=== PATIENT | male | born 1955 | race Caucasian/White ===

== ENCOUNTER 2016-08-23 18:55 | Inpatient (IN) | payer OTHER, MEDICARE ==
[2016-08-23 19:47] VITALS: BP 136/59
[2016-08-23] MEDS ORDERED: D5-0.9%NS 1,000 ML IV SCH (20:00)
[2016-08-23 20:42] LABS: HEMATOCRIT 27.2 % (39.0-49.0); HEMOGLOBIN 9.3 gm/dL (13.2-17.3); MEAN CELL VOLUME 88.1 fl (80-99); MEAN CORPUSCULAR HEMOGLOBIN 30.2 pg (26.0-30.0); MEAN CORPUSCULAR HGB CONC 34.2 pg (28.0-36.0); MEAN PLATELET VOLUME 7.3 fl; PLATELET COUNT 322 Th/cmm (150-400); RED BLOOD COUNT 3.09 Mil/cmm (4.30-5.70); RED CELL DISTRIBUTION WIDTH 13.6 % (11.5-20.0)
[2016-08-23 20:47] LABS: WHITE BLOOD COUNT 29.2 Th/cmm (4.8-10.8)
[2016-08-23 20:55] LABS: BAND NEUTROPHILE 1 % (0-10); NEUTROPHILS 91 % (40-80); PLATELET ESTIMATE ADEQUATE (NORMAL); PLATELET MORPHOLOGY NORMAL (NORMAL); TOTAL CELLS COUNTED 100
[2016-08-23] MEDS ORDERED: INSULIN ASPART SLIDING SCALE 100 UNITS/ML UNIT SUBQ SCH (21:00)
[2016-08-23] MEDS: cefTRIAXone 1 GM in Sodium Chloride 0.9% 50 ML IV SCH (21:04)
[2016-08-23] MEDS: HYDROmorphone 1 mg/mL 1mL Syr IVP PRN (21:11)
[2016-08-24] MEDS: INSULIN ASPART SLIDING SCALE 100 UNITS/ML UNIT SUBQ SCH ×4 (06:45→22:24)
[2016-08-24] MEDS: HYDROmorphone 1 mg/mL 1mL Syr IVP PRN ×3 (06:46→20:56)
[2016-08-24 07:49] LABS: ALB/GLOB RATIO 0.8 (1.0-1.8); ANION GAP 14.5 (7.0-16.0); BILIRUBIN,TOTAL 0.4 mg/dL (0.3-1.0); BUN/CREATININE RATIO 5.7; CALCIUM SERUM 8.5 mg/dL (8.6-10.3); CARBON DIOXIDE 28.5 mEq/L (21.0-31.0); PHOSPHOROUS 5.4 mg/dL (2.5-5.0); URIC ACID 8.5 mg/dL (4.4-7.6)
[2016-08-24 07:58] LABS: HEMATOCRIT 25.9 % (39.0-49.0); HEMOGLOBIN 9.1 gm/dL (13.2-17.3); MEAN CELL VOLUME 88.3 fl (80-99); MEAN CORPUSCULAR HEMOGLOBIN 30.8 pg (26.0-30.0); MEAN CORPUSCULAR HGB CONC 34.9 pg (28.0-36.0); MEAN PLATELET VOLUME 6.9 fl; PLATELET COUNT 348 Th/cmm (150-400); RED BLOOD COUNT 2.94 Mil/cmm (4.30-5.70); RED CELL DISTRIBUTION WIDTH 13.6 % (11.5-20.0)
[2016-08-24 08:08] LABS: CREATININE - SERUM 7.5 mg/dL (0.7-1.3)
--- NOTE | 2016-08-24 08:11 | General Progress Note ---
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 ESRD on HD Plan: doppler venous and arterial study MRI of right foot will need excisional debridement of foot with possible wound vac Objective - Results Result Diagrams: 08/23/16 20:29 Recent Labs: Laboratory Last Values WBC 29.2 Th/cmm (4.8-10.8) H* 08/23/16 20: RBC 3.09 Mil/cmm (4.30-5.70) L 08/23/16 20:29 Hgb 9.3 gm/dL (13.2-17.3) L 08/23/16 20: Hct 27.2 % (39.0-49.0) L 08/23/16 20:29 MCV 88.1 fl (80-99) 08/23/16 20: MCH 30.2 pg (26.0-30.0) H 08/23/16 20:29 MCHC Differential 34.2 pg (28.0-36.0) 08/23/16 20:29 RDW 13.6 % (11.5-20.0) 08/23/16 20:29 Plt Count 322 Th/cmm (150-400) 08/23/16 20:29 MPV 7.3 fl 08/23/16 20:29 Band Neutrophils % 1 % (0-10) 08/23/16 20:29 Neutrophils (Manual) 91 % (40-80) H 08/23/16 20:29 Lymphocytes 3 % (20-50) L 08/23/16 20:29 Monocytes 5 % (2-10) 08/23/16 20:29 Platelet Estimate ADEQUATE (NORMAL) 08/23/16 20:29 Platelet Morphology NORMAL (NORMAL) 08/23/16 20:29 RBC Morph Micro Appear NORMAL (NORMAL) 08/23/16 20:29 POC Glucose 87 MG/DL (70 - 105) 08/24/16 06:42 Hemoglobin A1c % 7.8 % (4.0-6.0) H 08/23/16 20:29 - Physical Exam Vitals and I&O: Vital Signs Temp 98.8 F 08/24/16 04:00 Pulse 86 08/24/16 04:00 Resp 19 08/24/16 04:00 BP 129/64 08/24/16 04:00 Pulse Ox 98 08/24/16 04:00 Intake & Output 08/23/16 08/24/16 08/24/16 18:59 06:59 18:59 Intake Total 500 Balance 500 Weight (lbs) 81.647 kg Intake: Oral 500 Active Medications: Current Medications Acetaminophen (Tylenol) 650 mg PO Q4H PRN PRN Reason: fever Stop: 10/22/16 19:59 Last Admin: 08/23/16 21:05 Dose: 650 mg Hydromorphone HCl (Dilaudid) 1 mg IVP Q6HR PRN PRN Reason: Pain (Moderate) Stop: 10/22/16 19:59 Last Admin: 08/24/16 06:46 Dose: 1 mg Dextrose/Sodium Chloride (D5-0.9%Ns) 1,000 mls @ 75 mls/hr IV .[id number] [facility] Stop: 10/22/16 19:59 Last Admin: 08/23/16 21:06 Dose: 75 mls/hr Ceftriaxone Sodium 1 gm/ (Sodium Chloride) 50 mls @ 100 mls/hr IV Q24HR DEB Stop: 10/22/16 20:59 Last Admin: 08/23/16 21:04 Dose: 100 mls/hr Insulin Aspart (Novolog Insulin Sliding Scale) 0 units SUBQ ACHS DEB PRN Reason: Protocol Stop: 10/23/16 07:29 Last Admin: 08/24/16 06:45 Dose: Not Given
[2016-08-24 08:29] LABS: WHITE BLOOD COUNT 17.5 Th/cmm (4.8-10.8)
[2016-08-24 08:43] LABS: TOTAL CELLS COUNTED 100
[2016-08-24 08:44] LABS: BAND NEUTROPHILE 2 % (0-10); NEUTROPHILS 78 % (40-80); PLATELET ESTIMATE ADEQUATE (NORMAL)
--- NOTE | 2016-08-24 09:08 | General Progress Note ---
Subjective - Review of Systems Service Date: 08/24/16 Subjective: I have foot ulcer Objective - Results Result Diagrams: 08/24/16 06:12 08/24/16 06:12 Recent Labs: Laboratory Last Values WBC 17.5 Th/cmm (4.8-10.8) H D 08/24/16 06:12 RBC 2.94 Mil/cmm (4.30-5.70) L 08/24/16 06:12 Hgb 9.1 gm/dL (13.2-17.3) L 08/24/16 06:12 Hct 25.9 % (39.0-49.0) L 08/24/16 06:12 MCV 88.3 fl (80-99) 08/24/16 06:12 MCH 30.8 pg (26.0-30.0) H 08/24/16 06:12 MCHC Differential 34.9 pg (28.0-36.0) 08/24/16 06:12 RDW 13.6 % (11.5-20.0) 08/24/16 06:12 Plt Count 348 Th/cmm (150-400) 08/24/16 06:12 MPV 6.9 fl 08/24/16 06:12 Band Neutrophils % 2 % (0-10) 08/24/16 06:12 Neutrophils (Manual) 78 % (40-80) 08/24/16 06:12 Lymphocytes 10 % (20-50) L 08/24/16 06:12 Monocytes 10 % (2-10) 08/24/16 06:12 Platelet Estimate ADEQUATE (NORMAL) 08/24/16 06:12 Platelet Morphology NORMAL (NORMAL) 08/23/16 20:29 RBC Morph Micro Appear NORMAL (NORMAL) 08/23/16 20:29 Sodium 131 mEq/L (136-145) L 08/24/16 06:12 Potassium 4.0 mEq/L (3.5-5.1) 08/24/16 06:12 Chloride 92 mEq/L (98-107) L 08/24/16 06:12 Carbon Dioxide 28.5 mEq/L (21.0-31.0) 08/24/16 06:12 Anion Gap 14.5 (7.0-16.0) 08/24/16 06:12 BUN 43 mg/dL (7-25) H 08/24/16 06:12 Creatinine 7.5 mg/dL (0.7-1.3) H* 08/24/16 06:12 Est GFR ( Amer) 9.6 ml/min (>90) 08/24/16 06:12 Est GFR (Non-Af Amer) 7.9 ml/min 08/24/16 06:12 BUN/Creatinine Ratio 5.7 08/24/16 06:12 Glucose 83 mg/dL (70-105) 08/24/16 06:12 POC Glucose 87 MG/DL (70 - 105) 08/24/16 06:42 Hemoglobin A1c % 7.8 % (4.0-6.0) H 08/23/16 20:29 Uric Acid 8.5 mg/dL (4.4-7.6) H 08/24/16 06:12 Calcium 8.5 mg/dL (8.6-10.3) L 08/24/16 06:12 Phosphorus 5.4 mg/dL (2.5-5.0) H 08/24/16 06:12 Magnesium 2.0 mg/dL (1.9-2.7) 08/24/16 06:12 Total Bilirubin 0.4 mg/dL (0.3-1.0) 08/24/16 06:12 AST 22 U/L (13-39) 08/24/16 06:12 ALT 27 U/L (7-52) 08/24/16 06:12 Alkaline Phosphatase 372 U/L (34-104) H 08/24/16 06:12 Total Protein 6.2 gm/dL (6.0-8.3) 08/24/16 06:12 Albumin 2.7 gm/dL (4.2-5.5) L 08/24/16 06:12 Globulin 3.5 gm/dL 08/24/16 06:12 Albumin/Globulin Ratio 0.8 (1.0-1.8) L 08/24/16 06:12 Triglycerides 90 mg/dL (<150) 08/24/16 06:12 Cholesterol 73 mg/dL (<200) 08/24/16 06:12 LDL Cholesterol Direct 25 mg/dL (75-193) L 08/24/16 06:12 HDL Cholesterol 28 mg/dL (23-92) 08/24/16 06:12 TSH 0.93 uIU/ml (0.34-5.60) 08/24/16 06:12 - Physical Exam Vitals and I&O: Vital Signs Temp 98.8 F 08/24/16 04:00 Pulse 86 08/24/16 04:00 Resp 19 08/24/16 04:00 BP 129/64 08/24/16 04:00 Pulse Ox 98 08/24/16 04:00 Intake & Output 08/23/16 08/24/16 08/24/16 18:59 06:59 18:59 Intake Total 500 Balance 500 Weight (lbs) 81.647 kg Intake: Oral 500 Active Medications: Current Medications Acetaminophen (Tylenol) 650 mg PO Q4H PRN PRN Reason: fever Stop: 10/22/16 19:59 Last Admin: 08/23/16 21:05 Dose: 650 mg Hydromorphone HCl (Dilaudid) 1 mg IVP Q6HR PRN PRN Reason: Pain (Moderate) Stop: 10/22/16 19:59 Last Admin: 08/24/16 06:46 Dose: 1 mg Dextrose/Sodium Chloride (D5-0.9%Ns) 1,000 mls @ 75 mls/hr IV .[id number] [facility] Stop: 10/22/16 19:59 Last Admin: 08/23/16 21:06 Dose: 75 mls/hr Ceftriaxone Sodium 1 gm/ (Sodium Chloride) 50 mls @ 100 mls/hr IV Q24HR [facility] Stop: 10/22/16 20:59 Last Admin: 08/23/16 21:04 Dose: 100 mls/hr Insulin Aspart (Novolog Insulin Sliding Scale) 0 units SUBQ ACHS DEB PRN Reason: Protocol Stop: 10/23/16 07:29 Last Admin: 08/24/16 06:45 Dose: Not Given Miscellaneous (Clinical Monitoring) 1 ea MC DAILY PRN PRN Reason: RENAL Stop: 10/23/16 08:19 General: Alert, Oriented x3, Cooperative, No acute distress HEENT: Atraumatic Neck: Supple Cardiovascular: Regular rate Lungs: Clear to auscultation Abdomen: Bowel sounds, Soft Extremities: Other (There is a 10 cm diabetic ulcer around big toe, there is a 2 cm diabetic ulcer stage I around left toe. ) Neurological: Normal gait Skin: Other (Dry) Psych/Mental Status: Mental status NL Assessment/Plan - Assessment Assessment: Patient is awake, alert, calm, in no acute distress. Dx: Sepsis to Diabetic ulcer, DM, HTN, ESRD on HD. - Plan Plan: Patient in Rocephin, IV NS, already seen by surgery. Will continue to monitor.
--- NOTE | 2016-08-24 10:04 | History & Physical ---
ADMIT DATE: 08/24/2016 CHIEF COMPLAINT: Acute loss of consciousness. HISTORY OF PRESENT ILLNESS: This is a case of a 60-year-old male who was brought to Emergency Room, [facility] secondary to acute loss of consciousness. When the patient got to ER, the patient was making eye contact, but he was not responding. The patient was found in the morning confused, the reason why he was sent to Emergency Room. PAST MEDICAL HISTORY: The patient has past medical history of diabetes mellitus, hypertension, and endstage renal disease, on hemodialysis. FAMILY HISTORY: The patient has bilateral foot ulcers. SOCIAL HISTORY: The patient lives with his sister and family members. ALLERGIES: No known allergies. PAST SURGICAL HISTORY: The patient referred that he had surgery on boot feet to cut some bone and debride the ulcers. MEDICATIONS: The patient does not know what medication he is taking. REVIEW OF SYSTEMS: LUNGS: The patient denies shortness of breath. HEART: The patient denies chest pain. ABDOMEN: Unremarkable. EXTREMITIES: The patient referred foot pain in both extremities. PHYSICAL EXAMINATION: GENERAL: A fairly nourished and developed male, awake, alert, and in no acute distress. HEENT: Head is normocephalic and atraumatic. Eyes: Pupils are reactive to light. Nose: No evidence of nasal obstruction. Ears: No evidence of any discharge. Mouth: Fairly kept. VITAL SIGNS: Bilateral air entry. No wheezing, no crackles. HEART: Regular rate and rhythm. ABDOMEN: Soft and nontender. Bowel sounds present. EXTREMITIES: There is a diabetic ulcer of around 10 cm in the internal area of right foot. There is 2 cm diabetic ulcer, stage I, on left foot. NEUROLOGICAL: The patient is awake, alert, in no acute distress. Nerves 2-12 grossly intact. IMPRESSION: 1. Sepsis secondary to foot ulcer. 2. Diabetes mellitus. 3. Hypertension. 4. Endstage renal disease, on hemodialysis. PLAN: 1. The patient will be admitted in the medical/surgical floor. 2. Ceftriaxone. 3. Consult with Dr. Harrington. 4. Consult with Dr. Baker. 5. Consult with Dr. Zendejas, synchronizer. 6. Insulin sliding scale. 7. Diabetic diet. 8. CBC and CMP in a.m. JOB# [id number]
[2016-08-24] MEDS ORDERED: Vancomycin HCl 1.5 GM in Sodium Chloride 0.9% 500 ML IV ONE (15:00)
[2016-08-24] MEDS: Epoetin Alfa 20000 Units/mL Vial SUBQ SCH (16:24)
[2016-08-24] MEDS: cefTRIAXone 1 GM in Sodium Chloride 0.9% 50 ML IV SCH (20:48)
--- NOTE | 2016-08-24 21:43 | Admit Criteria Form ---
Admit Criteria Forms - Admit Criteria Diagnosis: SEPSIS and OTHER FEBRILE ILLNESS, W/O FOCAL INFECTION Clinical Indications for Admission to Inpatient Care ( Place 'X' for any and all applicable criteria): Admission is indicated for ANY ONE of the following (1)(2)(3)(4): [ ] I. Bacteremia [ ]II. Suspected or identified specific infection requiring hospitalization (eg, meningitis, endocarditis) [ ]III. Hemodynamic instability [ ]IV. Altered mental status [X]V. Failure or unavailability of outpatient antimicrobial treatment [ ]. Hypoxemia [ ]VII. Seizures [ ]VIII. High-risk febrile neutropenia [ ]IX. Need for parenteral antibiotic in patient who is likely to abuse vascular access device (eg, injection drug user) [A](7) [ ]X. Temperature greater than 104.9 degrees F (40.5 degrees C) (oral) [ ]XI. Inpatient admission required rather than observation care because of ANY ONE of the following: [ ]1) Specific infection identified that is too severe for outpatient treatment or observation care trial [ ]2) Metabolic disorder (eg, hypoglycemia, hyperglycemia, metabolic acidosis) that is severe or persistent [ ]3) Temperature greater than 103.1 degrees F (39.5 degrees C) ( oral) that is not responsive to observation care treatment [ ]4) IV fluid to replace significant ongoing (eg, for over 24 hours) losses (> 3 L/m2 per day) [ ]5) Supplemental oxygen or respiratory treatments for over 24 hours that is performable only in acute inpatient setting [ ]6) Parenteral nutrition regimen need that must be implemented on inpatient basis [ ]7) Strict or protective (eg, laminar flow) isolation [ ]8) Other condition, treatment or monitoring requiring inpatient admission Extended stay beyond goal length of stay may be needed for(1)(3) [ ]a) Sepsis or septic shock(22) [ ]b) Positive blood cultures [ ]c) Insufficient oral intake [ ]d) High-risk febrile neutropenia(29)(30) [ ]e) Continued fever and clinical instability [ ]f) Clinically active comorbid illness (e.g,heart failure, renal failure , diabetes) The original [employer] [facility] content created by Brad Burton has been revised. The portions of the content which have been revised are identified through the use of italic text or in bold, and [employer] has neither reviewed nor approved the modified material. All other unmodified content is copyright [facility]. Please see references footnoted in the original [facility] edition 2016 Admit Criteria Met?: Yes
--- NOTE | 2016-08-25 05:54 | Consultation ---
DATE OF CONSULTATION: 08/24/2016 ATTENDING DOCTOR: Dr. Emerson Victoria. SUPERINTENDENT BOARD MILL: Dr. Ernesto Odom. REASON FOR CONSULTATION: Electrolyte imbalance and fluid management. HISTORY OF PRESENT ILLNESS: This is a 60-year-old male with past medical history of end-stage renal disease, on hemodialysis, who was transported to [place] [facility] because of altered level of consciousness and eventually transferred to [facility] for further care. Few hours prior to admission, the patient noted the patient to be awake, but poorly responsive. This was associated with confusion as well as disorientation. Paramedics were notified and he was brought to [place] [facility]. His blood sugar at [place] [facility] was 23. He was given D50 and his mental status improved. CT scan of the brain revealed old lacunar infarct involving bilateral basal ganglia, left thalamus and bilateral jelani. His white count was 29.8, but temperature was 98 degrees. Chest x-ray revealed no acute disease. Exam at [place] revealed right foot necrotic ulcer. As per the patient, he had recent surgical debridement of his right foot, but had been healing slowly. He had no fever, no chills, but does have occasional pain on his foot. The patient has a history of end-stage renal disease, on dialysis for the last 5 years. He was being dialyzed at _[place] and eventually moved to [place]. PAST MEDICAL HISTORY: 1. End-stage renal disease, on hemodialysis. 2. Type 2 diabetes mellitus. 3. Essential hypertension. 4. Bilateral foot ulcers. 5. Anemia of chronic kidney disease. PAST SURGICAL HISTORY: 1. Status post creation of left wrist AV fistula. 2. Status post debridement of right foot ulcer. CURRENT MEDICATIONS: He is currently on acetaminophen, hydromorphone, insulin aspart, ceftriaxone. ALLERGIES: No known drug allergies. SOCIAL HISTORY: Had a history of smoking previously, but quit many years ago. Denied any alcohol consumption. He used to do [employer]. FAMILY HISTORY: Significant for diabetes and hypertension in his siblings. REVIEW OF SYSTEMS: CONSTITUTIONAL: He does have occasional weakness. No fever, no chills. Appetite had been fair. HEENT: Has blurring of vision due to diabetes, hearing acuity remains within acceptable limits. No headaches, no dizziness. CARDIORESPIRATORY: He has a history of hypertension. At this point, no shortness of breath, chest pain, palpitations, diaphoresis, or cough. GASTROINTESTINAL: No nausea and vomiting, abdominal pain or cramping, hematemesis, melena, hematochezia, no diarrhea. ENDOCRINE: Has a history of diabetes, no thyroid abnormalities. MUSCULOSKELETAL: Multiple joint arthralgias. GENITOURINARY: History of kidney failure, on hemodialysis for the last 5 years. Rarely urinates, but if he does, denied any dysuria nor hematuria. HEMATOLOGIC: History of anemia of chronic kidney disease. NEUROPSYCH: He has diabetic neuropathy. No syncopal episode, but did have some encephalopathy due to his hypoglycemia. No syncopal episode. PHYSICAL EXAMINATION: GENERAL: The patient is awake, comfortable, minimal pain, right foot, more coherent. VITAL SIGNS: Blood pressure is 134/64, pulse 90, temperature 99.5 degrees. SKIN: Good turgor, warm, no rash, no jaundice appreciated. HEENT: Head normocephalic, atraumatic. Eyes: Extraocular muscles intact. Pupils equal, round, reactive to light and accommodates. Anicteric sclerae. Pale conjunctivae. Nose, midline nasal septum. Mouth: Dry mucosa with adequate dentition. NECK: Supple, no adenopathy, no thyromegaly, no bruits. Trachea palpated in the midline. CHEST AND CVS: S1, S2. No rub, murmur, no gallop appreciated. Point of maximal impulse, fifth intercostal space, left midclavicular line. No abdominal or femoral bruit is appreciated. LUNGS: Equal expansion. No use of accessory muscles. No supraclavicular retractions. Decreased breath sounds, but clear to auscultation without any wheeze. ABDOMEN: Mildly globular, soft. Positive for bowel sounds. No bruits either diastolic or systolic. RECTAL: The patient refused. GENITOURINARY: Normal-appearing male genitalia. MUSCULOSKELETAL: No effusions present in his joints with adequate range of motion. EXTREMITIES: No evidence of edema, cyanosis nor clubbing with palpable femoral, but unable to fully appreciate popliteal and dorsalis pedis pulses. He has a, I would say, 3 x 5 necrotic ulcer involving the right lateral sole of first digit. He also has remnant scar on the sole of his left first digit. NEUROLOGIC: The patient is alert now, verbal, motor is 5/5. Cranial nerves ____-12 intact. Sensory intact. LABORATORY DATA: Did reveal sodium of 131, potassium 4, chloride 92, bicarbonate 28, BUN 43, creatinine 7.5, glucose 87, calcium 8.5, uric acid 8.5, phosphorous is 5.4, albumin 2.7. White count is now 17.5, hemoglobin 9.1, hematocrit 25.9, platelets 348, polys 78%. IMPRESSION: 1. End-stage renal disease, on hemodialysis. 2. Metabolic encephalopathy secondary to hypoglycemia. 3. Sepsis secondary to infected right necrotic diabetic foot ulcer. 4. Type 2 diabetes mellitus. 5. Essential hypertension. 6. Anemia of chronic kidney disease. 7. Bilateral peripheral arterial disease. 8. Severe malnutrition. PLAN: 1. Continue on with hemodialysis as scheduled. 2. Follow up bustamante culture. 3. Continue Rocephin and add vancomycin. 4. Agree with surgical consult. 5. Start the patient on PhosLo due to secondary hyperparathyroidism. 6. Also, start the patient on Epogen because of anemia. Thank you, Dr. Victoria, for this consult and we will follow the patient closely with you. JOB# [id number]
[2016-08-25] MEDS: INSULIN ASPART SLIDING SCALE 100 UNITS/ML UNIT SUBQ SCH ×3 (06:30→21:45)
[2016-08-25 07:20] LABS: HEMOGLOBIN 8.6 gm/dL (13.2-17.3); MEAN CELL VOLUME 89.1 fl (80-99); MEAN CORPUSCULAR HEMOGLOBIN 30.5 pg (26.0-30.0); MEAN CORPUSCULAR HGB CONC 34.3 pg (28.0-36.0); MEAN PLATELET VOLUME 6.7 fl; PLATELET COUNT 311 Th/cmm (150-400); RED BLOOD COUNT 2.81 Mil/cmm (4.30-5.70); RED CELL DISTRIBUTION WIDTH 14.4 % (11.5-20.0)
[2016-08-25 07:59] LABS: ALB/GLOB RATIO 0.8 (1.0-1.8); ANION GAP 14.3 (7.0-16.0); BILIRUBIN,TOTAL 0.4 mg/dL (0.3-1.0); BUN/CREATININE RATIO 4.6; CALCIUM SERUM 8.6 mg/dL (8.6-10.3); CARBON DIOXIDE 28.9 mEq/L (21.0-31.0); POTASSIUM SERUM 4.2 mEq/L (3.5-5.1)
[2016-08-25 08:24] LABS: WHITE BLOOD COUNT 16.7 Th/cmm (4.8-10.8)
[2016-08-25 08:29] LABS: CREATININE - SERUM 4.6 mg/dL (0.7-1.3)
[2016-08-25] MEDS: HYDROmorphone 1 mg/mL 1mL Syr IVP PRN ×3 (09:09→18:56)
[2016-08-25 09:49] LABS: BASOPHIL 1 % (0-3); EOSINOPHIL 2 % (0-5); NEUTROPHILS 87 % (40-80); PLATELET ESTIMATE ADEQUATE (NORMAL); PLATELET MORPHOLOGY GIANT PLATELETS SEEN (NORMAL); POLYCHROMASIA 1+; TOTAL CELLS COUNTED 100
--- NOTE | 2016-08-25 10:19 | Diagnostic Imaging Report ---
Bilateral lower extremity DVT study HISTORY: Pain, rule out DVT COMPARISON: None Technique: Longitudinal and transverse sonographic images of the bilateral lower extremity veins were obtained with doppler analysis. FINDINGS: There is normal compressibility, augmentation and phasicity of the bilateral common femoral, superficial femoral, popliteal, and posterior tibial veins. No thrombus is visualized. IMPRESSION: No evidence of thrombus within the bilateral lower extremity veins.
--- NOTE | 2016-08-25 10:38 | Diagnostic Imaging Report ---
Bilateral lower extremity arterial Doppler study HISTORY: Pain COMPARISON: None Technique: Longitudinal and transverse sonographic images of the bilateral lower extremity arteries were obtained with doppler analysis. FINDINGS: Exam is limited due to patient's medical condition. Exam of the right side demonstrates generalized moderate to severe atherosclerotic vascular disease. There is biphasic waveform in the anterior tibialis artery. There is monophasic waveform of the dorsalis pedis artery with marked decreased velocity at 11 cm/second Right ankle brachial index: 1 Exam of the left side demonstrates moderate to severe atherosclerotic vascular disease with biphasic flow within left anterior and tibialis posterior arteries. There is monophasic flow in the left dorsalis pedis artery with decreased velocity of 21.3 cm/second. Left ankle brachial index: 0.8 IMPRESSION: Moderate to severe generalized atherosclerotic vascular disease, greatest distally. No sonographic evidence of occlusion. If clinically indicated a follow-up CT angiography of the lower extremities may also be obtained for further assessment. Right ankle brachial index: 1 Left ankle brachial index: 0.8
--- NOTE | 2016-08-25 12:25 | General Progress Note ---
Subjective - Review of Systems Service Date: 08/25/16 Subjective: I have foot ulcer. Objective - Results Result Diagrams: 08/25/16 06:40 08/25/16 06:40 Recent Labs: Laboratory Last Values WBC 16.7 Th/cmm (4.8-10.8) H 08/25/16 06:40 RBC 2.81 Mil/cmm (4.30-5.70) L 08/25/16 06:40 Hgb 8.6 gm/dL (13.2-17.3) L 08/25/16 06:40 Hct 25.0 % (39.0-49.0) L 08/25/16 06:40 MCV 89.1 fl (80-99) 08/25/16 06:40 MCH 30.5 pg (26.0-30.0) H 08/25/16 06:40 MCHC Differential 34.3 pg (28.0-36.0) 08/25/16 06:40 RDW 14.4 % (11.5-20.0) 08/25/16 06:40 Plt Count 311 Th/cmm (150-400) 08/25/16 06:40 MPV 6.7 fl 08/25/16 06:40 Band Neutrophils % 2 % (0-10) 08/24/16 06:12 Neutrophils (Manual) 87 % (40-80) H 08/25/16 06:40 Lymphocytes 9 % (20-50) L 08/25/16 06:40 Monocytes 1 % (2-10) L 08/25/16 06:40 Eosinophils 2 % (0-5) 08/25/16 06:40 Basophils 1 % (0-3) 08/25/16 06:40 Platelet Estimate ADEQUATE (NORMAL) 08/25/16 06:40 Platelet Morphology GIANT PLATELETS SEEN (NORMAL) 08/25/16 06:40 Polychromasia 1+ 08/25/16 06:40 RBC Morph Micro Appear ABNORMAL (NORMAL) 08/25/16 06:40 Sodium 137 mEq/L (136-145) 08/25/16 06:40 Potassium 4.2 mEq/L (3.5-5.1) 08/25/16 06:40 Chloride 98 mEq/L (98-107) 08/25/16 06:40 Carbon Dioxide 28.9 mEq/L (21.0-31.0) 08/25/16 06:40 Anion Gap 14.3 (7.0-16.0) 08/25/16 06:40 BUN 21 mg/dL (7-25) 08/25/16 06:40 Creatinine 4.6 mg/dL (0.7-1.3) H* 08/25/16 06:40 Est GFR ( Amer) 16.8 ml/min (>90) 08/25/16 06:40 Est GFR (Non-Af Amer) 13.9 ml/min 08/25/16 06:40 BUN/Creatinine Ratio 4.6 08/25/16 06:40 Glucose 163 mg/dL (70-105) H 08/25/16 06:40 POC Glucose 224 MG/DL (70 - 105) H 08/25/16 11:16 Hemoglobin A1c % 7.8 % (4.0-6.0) H 08/23/16 20:29 Uric Acid 8.5 mg/dL (4.4-7.6) H 08/24/16 06:12 Calcium 8.6 mg/dL (8.6-10.3) 08/25/16 06:40 Phosphorus 5.4 mg/dL (2.5-5.0) H 08/24/16 06:12 Magnesium 2.0 mg/dL (1.9-2.7) 08/24/16 06:12 Total Bilirubin 0.4 mg/dL (0.3-1.0) 08/25/16 06:40 AST 21 U/L (13-39) 08/25/16 06:40 ALT 25 U/L (7-52) 08/25/16 06:40 Alkaline Phosphatase 346 U/L (34-104) H 08/25/16 06:40 Total Protein 6.2 gm/dL (6.0-8.3) 08/25/16 06:40 Albumin 2.7 gm/dL (4.2-5.5) L 08/25/16 06:40 Globulin 3.5 gm/dL 08/25/16 06:40 Albumin/Globulin Ratio 0.8 (1.0-1.8) L 08/25/16 06:40 Triglycerides 90 mg/dL (<150) 08/24/16 06:12 Cholesterol 73 mg/dL (<200) 08/24/16 06:12 LDL Cholesterol Direct 25 mg/dL (75-193) L 08/24/16 06:12 HDL Cholesterol 28 mg/dL (23-92) 08/24/16 06:12 Amylase 14 U/L (29-103) L 08/25/16 06:40 Lipase 20 U/L (11-82) 08/24/16 06:12 Vitamin B12 1646 pg/mL (211-946) H 08/24/16 06:12 Vitamin D 25-Hydroxy 5.9 ng/mL (30.0-100.0) L 08/24/16 06:12 Free T4 0.91 ng/dL (0.82-1.77) 08/24/16 06:12 TSH 0.93 uIU/ml (0.34-5.60) 08/24/16 06:12 Random Vancomycin 26.2 ug/mL (5.0-40.0) 08/25/16 06:40 - Physical Exam Vitals and I&O: Vital Signs Temp 98.8 F 08/25/16 08:00 Pulse 89 08/25/16 08:00 Resp 20 08/25/16 08:00 BP 141/59 08/25/16 08:00 Pulse Ox 97 08/25/16 08:00 Intake & Output 08/24/16 08/25/16 08/25/16 18:59 06:59 18:59 Intake Total 1200 200 Output Total 2000 Balance 1200 -1800 Intake: Oral 1200 200 Output: Hemodialysis 2000 Other: # Voids 2 Active Medications: Current Medications Acetaminophen (Tylenol) 650 mg PO Q4H PRN PRN Reason: fever Stop: 10/22/16 19:59 Last Admin: 08/25/16 00:07 Dose: 650 mg Calcium Acetate (Phoslo) 667 mg PO TIDWM [facility] Stop: 10/23/16 16:59 Last Admin: 08/25/16 11:50 Dose: 667 mg Epoetin Tejas (Epogen) 10,000 units SUBQ MoWeFr [facility] Stop: 10/23/16 14:14 Last Admin: 08/24/16 16:24 Dose: 10,000 units Hydromorphone HCl (Dilaudid) 1 mg IVP Q6HR PRN PRN Reason: Pain (Moderate) Stop: 10/22/16 19:59 Last Admin: 08/25/16 11:50 Dose: 1 mg Ceftriaxone Sodium 1 gm/ (Sodium Chloride) 50 mls @ 100 mls/hr IV Q24HR DEB Stop: 10/22/16 20:59 Last Admin: 08/24/16 20:48 Dose: 100 mls/hr Insulin Aspart (Novolog Insulin Sliding Scale) 0 units SUBQ ACHS DEB PRN Reason: Protocol Stop: 10/23/16 07:29 Last Admin: 08/25/16 11:51 Dose: 1,000 units Miscellaneous (Clinical Monitoring) 1 ea DAILY PRN PRN Reason: RENAL Stop: 10/23/16 08:19 Miscellaneous (Vancomycin Iv Per Pharmacy) 1 [facility] PRN PRN PRN Reason: PROTOCOL Stop: 10/23/16 14:11 General: Alert, Oriented x3, Cooperative, No acute distress HEENT: Atraumatic Neck: Supple Cardiovascular: Regular rate Lungs: Clear to auscultation Abdomen: Bowel sounds, Soft Extremities: Other (Diabetic ulcer in right foot) Neurological: Other (Unstable gait) Skin: Other (Diabetic ulcer in right foot) Psych/Mental Status: Mental status NL Assessment/Plan - Assessment Assessment: Patient is awake, alert, calm, in no acute distress. WBC improving. Dx: Sepsis to Diabetic ulcer, DM, HTN, ESRD on HD. - Plan Plan: Patient in Rocephin, IV NS. Bone scan will be done today in order to do surgery. Will continue to monitor.
--- NOTE | 2016-08-25 18:21 | General Progress Note ---
Subjective - Review of Systems Service Date: 08/25/16 Subjective: alert, eager to go home Objective - Results Result Diagrams: 08/25/16 06:40 08/25/16 06:40 Recent Labs: Laboratory Last Values WBC 16.7 Th/cmm (4.8-10.8) H 08/25/16 06:40 RBC 2.81 Mil/cmm (4.30-5.70) L 08/25/16 06:40 Hgb 8.6 gm/dL (13.2-17.3) L 08/25/16 06:40 Hct 25.0 % (39.0-49.0) L 08/25/16 06:40 MCV 89.1 fl (80-99) 08/25/16 06:40 MCH 30.5 pg (26.0-30.0) H 08/25/16 06:40 MCHC Differential 34.3 pg (28.0-36.0) 08/25/16 06:40 RDW 14.4 % (11.5-20.0) 08/25/16 06:40 Plt Count 311 Th/cmm (150-400) 08/25/16 06:40 MPV 6.7 fl 08/25/16 06:40 Band Neutrophils % 2 % (0-10) 08/24/16 06:12 Neutrophils (Manual) 87 % (40-80) H 08/25/16 06:40 Lymphocytes 9 % (20-50) L 08/25/16 06:40 Monocytes 1 % (2-10) L 08/25/16 06:40 Eosinophils 2 % (0-5) 08/25/16 06:40 Basophils 1 % (0-3) 08/25/16 06:40 Platelet Estimate ADEQUATE (NORMAL) 08/25/16 06:40 Platelet Morphology GIANT PLATELETS SEEN (NORMAL) 08/25/16 06:40 Polychromasia 1+ 08/25/16 06:40 RBC Morph Micro Appear ABNORMAL (NORMAL) 08/25/16 06:40 Sodium 137 mEq/L (136-145) 08/25/16 06:40 Potassium 4.2 mEq/L (3.5-5.1) 08/25/16 06:40 Chloride 98 mEq/L (98-107) 08/25/16 06:40 Carbon Dioxide 28.9 mEq/L (21.0-31.0) 08/25/16 06:40 Anion Gap 14.3 (7.0-16.0) 08/25/16 06:40 BUN 21 mg/dL (7-25) 08/25/16 06:40 Creatinine 4.6 mg/dL (0.7-1.3) H* 08/25/16 06:40 Est GFR ( Amer) 16.8 ml/min (>90) 08/25/16 06:40 Est GFR (Non-Af Amer) 13.9 ml/min 08/25/16 06:40 BUN/Creatinine Ratio 4.6 08/25/16 06:40 Glucose 163 mg/dL (70-105) H 08/25/16 06:40 POC Glucose 119 MG/DL (70 - 105) H 08/25/16 16:15 Hemoglobin A1c % 7.8 % (4.0-6.0) H 08/23/16 20:29 Uric Acid 8.5 mg/dL (4.4-7.6) H 08/24/16 06:12 Calcium 8.6 mg/dL (8.6-10.3) 08/25/16 06:40 Phosphorus 5.4 mg/dL (2.5-5.0) H 08/24/16 06:12 Magnesium 2.0 mg/dL (1.9-2.7) 08/24/16 06:12 Total Bilirubin 0.4 mg/dL (0.3-1.0) 08/25/16 06:40 AST 21 U/L (13-39) 08/25/16 06:40 ALT 25 U/L (7-52) 08/25/16 06:40 Alkaline Phosphatase 346 U/L (34-104) H 08/25/16 06:40 Total Protein 6.2 gm/dL (6.0-8.3) 08/25/16 06:40 Albumin 2.7 gm/dL (4.2-5.5) L 08/25/16 06:40 Globulin 3.5 gm/dL 08/25/16 06:40 Albumin/Globulin Ratio 0.8 (1.0-1.8) L 08/25/16 06:40 Triglycerides 90 mg/dL (<150) 08/24/16 06:12 Cholesterol 73 mg/dL (<200) 08/24/16 06:12 LDL Cholesterol Direct 25 mg/dL (75-193) L 08/24/16 06:12 HDL Cholesterol 28 mg/dL (23-92) 08/24/16 06:12 Amylase 14 U/L (29-103) L 08/25/16 06:40 Lipase 20 U/L (11-82) 08/24/16 06:12 Vitamin B12 1646 pg/mL (211-946) H 08/24/16 06:12 Vitamin D 25-Hydroxy 5.9 ng/mL (30.0-100.0) L 08/24/16 06:12 Free T4 0.91 ng/dL (0.82-1.77) 08/24/16 06:12 TSH 0.93 uIU/ml (0.34-5.60) 08/24/16 06:12 Random Vancomycin 26.2 ug/mL (5.0-40.0) 08/25/16 06:40 - Physical Exam Vitals and I&O: Vital Signs Temp 97.8 F 08/25/16 15:47 Pulse 80 08/25/16 15:47 Resp 17 08/25/16 15:47 BP 143/61 08/25/16 15:47 Pulse Ox 98 08/25/16 15:47 Intake & Output 08/24/16 08/25/16 08/25/16 18:59 06:59 18:59 Intake Total 1200 200 Output Total 2000 Balance 1200 -1800 Intake: Oral 1200 200 Output: Hemodialysis 2000 Other: # Voids 2 Active Medications: Current Medications Acetaminophen (Tylenol) 650 mg PO Q4H PRN PRN Reason: fever Stop: 10/22/16 19:59 Last Admin: 08/25/16 00:07 Dose: 650 mg Calcium Acetate (Phoslo) [address] [facility] Stop: 10/23/16 16:59 Last Admin: 08/25/16 16:15 Dose: 667 mg Epoetin Tejas (Epogen) 10,[address] [facility] Stop: 10/23/16 14:14 Last Admin: 08/24/16 16:24 Dose: 10,000 units Hydromorphone HCl (Dilaudid) 1 mg IVP Q6HR PRN PRN Reason: Pain (Moderate) Stop: 10/22/16 19:59 Last Admin: 08/25/16 11:50 Dose: 1 mg Ceftriaxone Sodium 1 gm/ (Sodium Chloride) 50 mls @ 100 mls/hr IV Q24HR DEB Stop: 10/22/16 20:59 Last Admin: 08/24/16 20:48 Dose: 100 mls/hr Insulin Aspart (Novolog Insulin Sliding Scale) 0 units SUBQ ACHS DEB PRN Reason: Protocol Stop: 10/23/16 07:29 Last Admin: 08/25/16 11:51 Dose: 1,000 units Miscellaneous (Clinical Monitoring) 1 ea DAILY PRN PRN Reason: RENAL Stop: 10/23/16 08:19 Miscellaneous (Vancomycin Iv Per Pharmacy) 1 [facility] PRN PRN PRN Reason: PROTOCOL Stop: 10/23/16 14:11 General: Alert, Cooperative, No acute distress HEENT: Atraumatic, EOMI, Mucous membr. moist/pink Neck: Supple, +2 carotid pulse wo bruit Cardiovascular: Regular rate, Normal S1, Normal S2 Lungs: Clear to auscultation Abdomen: Bowel sounds, Soft Extremities: Other (necrotic ulcer right foot), no Edema Neurological: Sensation intact Skin: no Rash Psych/Mental Status: Mood NL Assessment/Plan - Assessment Assessment: ESRD on HD Met Enceph 2nd hypolglycemia Sepsis 2nd to Infected, Necrotic right foot ulcer DM2 Ess Htn Anemia of CKD B/L PAD - Plan Plan: Lab - Result Diagrams 08/25/16 06:40 08/25/16 06:40 Current Medications Acetaminophen (Tylenol) 650 mg PO Q4H PRN PRN Reason: fever Stop: 10/22/16 19:59 Last Admin: 08/25/16 00:07 Dose: 650 mg Calcium Acetate (Phoslo) [address] [facility] Stop: 10/23/16 16:59 Last Admin: 08/25/16 16:15 Dose: 667 mg Epoetin Tejas (Epogen) 10,[address] [facility] Stop: 10/23/16 14:14 Last Admin: 08/24/16 16:24 Dose: 10,000 units Hydromorphone HCl (Dilaudid) 1 mg IVP Q6HR PRN PRN Reason: Pain (Moderate) Stop: 10/22/16 19:59 Last Admin: 08/25/16 11:50 Dose: 1 mg Ceftriaxone Sodium 1 gm/ (Sodium Chloride) 50 mls @ 100 mls/hr IV Q24HR DEB Stop: 10/22/16 20:59 Last Admin: 08/24/16 20:48 Dose: 100 mls/hr Insulin Aspart (Novolog Insulin Sliding Scale) 0 units SUBQ ACHS DEB PRN Reason: Protocol Stop: 10/23/16 07:29 Last Admin: 08/25/16 11:51 Dose: 1,000 units Miscellaneous (Clinical Monitoring) 1 ea [facility] DAILY PRN PRN Reason: RENAL Stop: 10/23/16 08:19 Miscellaneous (Vancomycin Iv Per Pharmacy) 1 ea [facility] PRN PRN PRN Reason: PROTOCOL Stop: 10/23/16 14:11 schedule for hd in am continue Rocephin Right HODAN 1, Left HODAN 0.8 not indicative of severe PAD Nutritional Asmnt/Malnutr-PDOC - Dietary Evaluation Malnutrition Findings (Please click <Entered> for more info): Nutritional Asmnt/Malnutrition Start: 08/25/16 15: 01 Text: Status: Active Freq: Document 08/25/16 15:01 GSUN (Rec: 08/25/16 15:18 [email or web address] [email or web address]) Nutritional Asmnt/Malnutrition Patient General Information Nutritional Screening Consult Diagnosis Sepsis secondary to foot ulcer Pertinent Medical Hx/Surgical Hx DM, HTN, ESRD on HD Subjective Information 60 year old male from home with caregiver. RD consult for chronic wounds. Pt was alert with family at bedside during visit. Avg PO intake 100% of meals. Pt stated good appetite , would like more food. Pt expressed preference for fruits, RD explained consistant carb. RD vriefly discussed CCHO and renal diet. Pt does not wish to go in further detail at this time, stating he has a caregiver and speaks to a dietitian at HD center. Pt report UBW dry weight 88kg/193.6lb, denied recent weight changes. Current Diet Order/ Nutrition Support Renal, [id number] Pertinent Medications Epogen, Novolog, Vancomycin Pertinent Labs 08/23: A1c 7.8H 08/25: creatinine 4.6H, glucose 163H Nutritional Hx/Data Height 1.75 m Height (Calculated Centimeters) 175.3 Current Weight (lbs) 81.647 kg Weight (Calculated Kilograms) 81.6 Weight (Calculated Grams) 65195.6 Usual body Weight (lbs) 194 [place] Body Weight 160 Recent Weight Change No Weight Status Overweight GI Symptoms Skin Integrity/Comment: Filippo 16. Woudn care 08/24: chronic wound on right foot. Current %PO Good (75-100%) Estimated Nutritional Goals Calories/Kcals/Kg IBW 160lb/72.7kg Kcals Calculated 2181-2545kcal (30-35kcal/kg) Protein g/kg: IBW Protein Calculated 102-124g (1.4-1.7g/kg) Fluid: ml Per MD (ERDS on HD) Nutritional Problem 1. Problem Problem Increased kcal and prot needs related to Etiology hypermetabolic state Signs/Symptoms: H&P: sepsis secondary to foot ulcer, ESRD on HD Intervention/Recommendation Comments 1. Recommend [id number] due to pt is in hypermetbaolic state on HD and expressed hunger. Expected Outcomes/Goals Expected Outcomes/Goals 1. PO intake continue to meet at least 75% of estimated nutritional needs. 2. Provided brief edu on current diet, CCHO and renal. Pt does not wish to discuss further in detail as pt has a caregiver and speaks to a dietitan at HD center. RD made sure pt knows RD's availability if he should have any questions.
[2016-08-25] MEDS: cefTRIAXone 1 GM in Sodium Chloride 0.9% 50 ML IV SCH (20:59)
[2016-08-26] MEDS: INSULIN ASPART SLIDING SCALE 100 UNITS/ML UNIT SUBQ SCH ×3 (06:57→16:20)
[2016-08-26 07:02] LABS: HEMATOCRIT 24.4 % (39.0-49.0)
[2016-08-26 07:09] LABS: ALB/GLOB RATIO 0.8 (1.0-1.8); ANION GAP 13.5 (7.0-16.0); BILIRUBIN,TOTAL 0.4 mg/dL (0.3-1.0); CALCIUM SERUM 8.7 mg/dL (8.6-10.3); CARBON DIOXIDE 27.7 mEq/L (21.0-31.0); POTASSIUM SERUM 4.2 mEq/L (3.5-5.1)
[2016-08-26 07:27] LABS: HEMOGLOBIN 8.3 gm/dL (13.2-17.3); MEAN CELL VOLUME 90.3 fl (80-99); MEAN CORPUSCULAR HEMOGLOBIN 30.7 pg (26.0-30.0); MEAN CORPUSCULAR HGB CONC 34.1 pg (28.0-36.0); MEAN PLATELET VOLUME 7.1 fl; PLATELET COUNT 310 Th/cmm (150-400); RED CELL DISTRIBUTION WIDTH 13.8 % (11.5-20.0)
[2016-08-26 07:58] LABS: WHITE BLOOD COUNT 15.4 Th/cmm (4.8-10.8)
[2016-08-26 08:00] LABS: CREATININE - SERUM 5.8 mg/dL (0.7-1.3)
--- NOTE | 2016-08-26 08:16 | Diagnostic Imaging Report ---
Radionuclide 3 phase bone scan of the feet/ankles HISTORY: Osteomyelitis 20.2 mCi technetium MDP was used in the exam. Initial perfusion and subsequent blood pool and delayed images were obtained. Initial perfusion/blood flow images demonstrate asymmetric increased activity about the right foot consistent with hyperemia. Blood pool images also demonstrate asymmetric increased activity about the right foot and ankle regions consistent with hyperemia. Delayed images demonstrate photon deficiency in the region of the right first toe. Findings may be associated with vascular occlusion. Mild increased activity noted about the region of the first metatarsal. Correlation with plain radiographs recommended. IMPRESSION: 1. Photon deficiency in the vicinity of the right first toe and delayed images. Changes may reflect vascular occlusion. Clinical correlation and correlation with plain radiographs recommended. 2. Changes consistent with generalized hyperemia throughout the soft tissues of the right foot and ankle.
[2016-08-26 08:17] LABS: INR 1.2 (0.5-1.4); PROTHROMBIN TIME (TEST) 12.6 SECONDS (9.5-11.5)
--- NOTE | 2016-08-26 08:20 | Diagnostic Imaging Report ---
Portable chest x-ray HISTORY: Shortness of breath Heart size difficult to assess with portable technique in a poor inspiration. No acute focal pulmonary processes. No hilar or mediastinal abnormalities. IMPRESSION: No acute abnormalities
--- NOTE | 2016-08-26 09:06 | General Progress Note ---
Subjective - Review of Systems Service Date: 08/26/16 Subjective: I want go home. Objective - Results Result Diagrams: 08/26/16 06:15 08/26/16 06:15 Recent Labs: Laboratory Last Values WBC 15.4 Th/cmm (4.8-10.8) H 08/26/16 06:15 RBC 2.70 Mil/cmm (4.30-5.70) L 08/26/16 06:15 Hgb 8.3 gm/dL (13.2-17.3) L 08/26/16 06:15 Hct 24.4 % (39.0-49.0) L 08/26/16 06:15 MCV 90.3 fl (80-99) 08/26/16 06:15 MCH 30.7 pg (26.0-30.0) H 08/26/16 06:15 MCHC Differential 34.1 pg (28.0-36.0) 08/26/16 06:15 RDW 13.8 % (11.5-20.0) 08/26/16 06:15 Plt Count 310 Th/cmm (150-400) 08/26/16 06:15 MPV 7.1 fl 08/26/16 06:15 Band Neutrophils % 2 % (0-10) 08/24/16 06:12 Neutrophils (Manual) 87 % (40-80) H 08/25/16 06:40 Lymphocytes 9 % (20-50) L 08/25/16 06:40 Monocytes 1 % (2-10) L 08/25/16 06:40 Eosinophils 2 % (0-5) 08/25/16 06:40 Basophils 1 % (0-3) 08/25/16 06:40 Platelet Estimate ADEQUATE (NORMAL) 08/25/16 06:40 Platelet Morphology GIANT PLATELETS SEEN (NORMAL) 08/25/16 06:40 Polychromasia 1+ 08/25/16 06:40 RBC Morph Micro Appear ABNORMAL (NORMAL) 08/25/16 06:40 PT 12.6 SECONDS (9.5-11.5) H 08/26/16 06:15 INR 1.20 (0.5-1.4) 08/26/16 06:15 PTT (Actin FS) 31.1 SECONDS (26.0-38.0) 08/26/16 06:15 Sodium 134 mEq/L (136-145) L 08/26/16 06:15 Potassium 4.2 mEq/L (3.5-5.1) 08/26/16 06:15 Chloride 97 mEq/L (98-107) L 08/26/16 06:15 Carbon Dioxide 27.7 mEq/L (21.0-31.0) 08/26/16 06:15 Anion Gap 13.5 (7.0-16.0) 08/26/16 06:15 BUN 29 mg/dL (7-25) H 08/26/16 06:15 Creatinine 5.8 mg/dL (0.7-1.3) H* 08/26/16 06:15 Est GFR ( Amer) 12.9 ml/min (>90) 08/26/16 06:15 Est GFR (Non-Af Amer) 10.7 ml/min 08/26/16 06:15 BUN/Creatinine Ratio 5.0 08/26/16 06:15 Glucose 182 mg/dL (70-105) H 08/26/16 06:15 POC Glucose 161 MG/DL (70 - 105) H 08/26/16 06:55 Hemoglobin A1c % 7.8 % (4.0-6.0) H 08/23/16 20:29 Uric Acid 8.5 mg/dL (4.4-7.6) H 08/24/16 06:12 Calcium 8.7 mg/dL (8.6-10.3) 08/26/16 06:15 Phosphorus 5.4 mg/dL (2.5-5.0) H 08/24/16 06:12 Magnesium 2.0 mg/dL (1.9-2.7) 08/24/16 06:12 Total Bilirubin 0.4 mg/dL (0.3-1.0) 08/26/16 06:15 AST 15 U/L (13-39) 08/26/16 06:15 ALT 19 U/L (7-52) 08/26/16 06:15 Alkaline Phosphatase 304 U/L (34-104) H 08/26/16 06:15 Total Protein 6.2 gm/dL (6.0-8.3) 08/26/16 06:15 Albumin 2.7 gm/dL (4.2-5.5) L 08/26/16 06:15 Globulin 3.5 gm/dL 08/26/16 06:15 Albumin/Globulin Ratio 0.8 (1.0-1.8) L 08/26/16 06:15 Triglycerides 90 mg/dL (<150) 08/24/16 06:12 Cholesterol 73 mg/dL (<200) 08/24/16 06:12 LDL Cholesterol Direct 25 mg/dL (75-193) L 08/24/16 06:12 HDL Cholesterol 28 mg/dL (23-92) 08/24/16 06:12 Amylase 14 U/L (29-103) L 08/25/16 06:40 Lipase 20 U/L (11-82) 08/24/16 06:12 Vitamin B12 1646 pg/mL (211-946) H 08/24/16 06:12 Vitamin D 25-Hydroxy 5.9 ng/mL (30.0-100.0) L 08/24/16 06:12 Free T4 0.91 ng/dL (0.82-1.77) 08/24/16 06:12 TSH 0.93 uIU/ml (0.34-5.60) 08/24/16 06:12 Random Vancomycin 26.2 ug/mL (5.0-40.0) 08/25/16 06:40 - Physical Exam Vitals and I&O: Vital Signs Temp 99.1 F 08/26/16 04:06 Pulse 11 08/26/16 04:06 Resp 18 08/26/16 04:06 BP 146/81 08/26/16 04:06 Pulse Ox 97 08/26/16 04:06 Intake & Output 08/25/16 08/26/16 08/26/16 18:59 06:59 18:59 Intake Total 700 Balance 700 Intake: Oral 700 Other: # Voids 3 # Bowel Movements 2 Active Medications: Current Medications Acetaminophen (Tylenol) 650 mg PO Q4H PRN PRN Reason: fever Stop: 10/22/16 19:59 Last Admin: 08/25/16 00:07 Dose: 650 mg Calcium Acetate (Phoslo) 667 mg PO TIDWM DEB Stop: 10/23/16 16:59 Last Admin: 08/26/16 08:48 Dose: Not Given Epoetin Tejas (Epogen) 10,000 units SUBQ MoWeFr [facility] Stop: 10/23/16 14:14 Last Admin: 08/24/16 16:24 Dose: 10,000 units Hydromorphone HCl (Dilaudid) 1 mg IVP Q6HR PRN PRN Reason: Pain (Moderate) Stop: 10/22/16 19:59 Last Admin: 08/25/16 18:56 Dose: 1 mg Ceftriaxone Sodium 1 gm/ (Sodium Chloride) 50 mls @ 100 mls/hr IV Q24HR [facility] Stop: 10/22/16 20:59 Last Admin: 08/25/16 20:59 Dose: 100 mls/hr Vancomycin HCl 1 gm/ Sodium (Chloride) 250 mls @ 165 mls/hr IV ONCE ONE Stop: 08/26/16 13:30 Insulin Aspart (Novolog Insulin Sliding Scale) 0 units SUBQ ACHS [facility] PRN Reason: Protocol Stop: 10/23/16 07:29 Last Admin: 08/26/16 06:57 Dose: Not Given Miscellaneous (Clinical Monitoring) 1 ea DAILY PRN PRN Reason: RENAL Stop: 10/23/16 08:19 Miscellaneous (Vancomycin Iv Per Pharmacy) 1 [facility] PRN PRN PRN Reason: PROTOCOL Stop: 10/23/16 14:11 Ondansetron HCl (Zofran) 4 mg IV Q4H PRN PRN Reason: Nausea / Vomiting Stop: 10/24/16 18:51 General: Alert, Oriented x3, Cooperative, No acute distress HEENT: Atraumatic Neck: Supple Cardiovascular: Regular rate Lungs: Clear to auscultation Abdomen: Bowel sounds, Soft Extremities: Other (There is a diabetic ulcer in right foot.) Neurological: Other (Non ambulatory at this moment) Skin: Other (Diabetic ulcer in right foot) Psych/Mental Status: Mental status NL Assessment/Plan - Assessment Assessment: Patient is awake, alert, calm, in no acute distress. WBC improving. Bone scan shows no osteomyelitis. Dx: Sepsis to Diabetic ulcer, DM, HTN, ESRD on HD. - Plan Plan: Patient in Rocephin, IV NS. Possible surgery today. Will continue to monitor. Nutritional Asmnt/Malnutr-PDOC - Dietary Evaluation Malnutrition Findings (Please click <Entered> for more info): Nutritional Asmnt/Malnutrition Start: 08/25/16 15: 01 Text: Status: Active Freq: Document 08/25/16 15:01 RADHA (Rec: 08/25/16 15:18 [email or web address]) Nutritional Asmnt/Malnutrition Patient General Information Nutritional Screening Consult Diagnosis Sepsis secondary to foot ulcer Pertinent Medical Hx/Surgical Hx DM, HTN, ESRD on HD Subjective Information 60 year old male from home with caregiver. RD consult for chronic wounds. Pt was alert with family at bedside during visit. Avg PO intake 100% of meals. Pt stated good appetite , would like more food. Pt expressed preference for fruits, RD explained consistant carb. RD vriefly discussed CCHO and renal diet. Pt does not wish to go in further detail at this time, stating he has a caregiver and speaks to a dietitian at HD center. Pt report UBW dry weight 88kg/193.6lb, denied recent weight changes. Current Diet Order/ Nutrition Support Renal, [id number] Pertinent Medications Epogen, Novolog, Vancomycin Pertinent Labs 08/23: A1c 7.8H 08/25: creatinine 4.6H, glucose 163H Nutritional Hx/Data Height 1.75 m Height (Calculated Centimeters) 175.3 Current Weight (lbs) 81.647 kg Weight (Calculated Kilograms) 81.6 Weight (Calculated Grams) 66393.6 Usual body Weight (lbs) 194 [place] Body Weight 160 Recent Weight Change No Weight Status Overweight GI Symptoms Skin Integrity/Comment: Filippo Gonzalez. Woudn care 08/24: chronic wound on right foot. Current %PO Good (75-100%) Estimated Nutritional Goals Calories/Kcals/Kg IBW 160lb/72.7kg Kcals Calculated 2181-2545kcal (30-35kcal/kg) Protein g/kg: IBW Protein Calculated 102-124g (1.4-1.7g/kg) Fluid: ml Per MD (ERDS on HD) Nutritional Problem 1. Problem Problem Increased kcal and prot needs related to Etiology hypermetabolic state Signs/Symptoms: H&P: sepsis secondary to foot ulcer, ESRD on HD Intervention/Recommendation Comments 1. Recommend [id number] due to pt is in hypermetbaolic state on HD and expressed hunger. Expected Outcomes/Goals Expected Outcomes/Goals 1. PO intake continue to meet at least 75% of estimated nutritional needs. 2. Provided brief edu on current diet, CCHO and renal. Pt does not wish to discuss further in detail as pt has a caregiver and speaks to a dietitan at HD center. RD made sure pt knows RD's availability if he should have any questions.
[2016-08-26] MEDS: HYDROmorphone 1 mg/mL 1mL Syr IVP PRN ×3 (09:12→23:30)
[2016-08-26 09:17] LABS: ANISOCYTOSIS 1+; BAND NEUTROPHILE 1 % (0-10); EOSINOPHIL 2 % (0-5); NEUTROPHILS 86 % (40-80); PLATELET ESTIMATE ADEQUATE (NORMAL); PLATELET MORPHOLOGY NORMAL (NORMAL); TOTAL CELLS COUNTED 100
--- NOTE | 2016-08-26 09:17 | General Progress Note ---
Subjective - Review of Systems Service Date: 08/26/16 Events since last encounter: bone scan - no flow to big toe discussed informed consent with patient and daughter Plan: ray amputation of right first, possibly 2nd toe Objective - Results Result Diagrams: 08/26/16 06:15 08/26/16 06:15 Recent Labs: Laboratory Last Values WBC 15.4 Th/cmm (4.8-10.8) H 08/26/16 06:15 RBC 2.70 Mil/cmm (4.30-5.70) L 08/26/16 06:15 Hgb 8.3 gm/dL (13.2-17.3) L 08/26/16 06:15 Hct 24.4 % (39.0-49.0) L 08/26/16 06:15 MCV 90.3 fl (80-99) 08/26/16 06:15 MCH 30.7 pg (26.0-30.0) H 08/26/16 06:15 MCHC Differential 34.1 pg (28.0-36.0) 08/26/16 06:15 RDW 13.8 % (11.5-20.0) 08/26/16 06:15 Plt Count 310 Th/cmm (150-400) 08/26/16 06:15 MPV 7.1 fl 08/26/16 06:15 Band Neutrophils % 2 % (0-10) 08/24/16 06:12 Neutrophils (Manual) 87 % (40-80) H 08/25/16 06:40 Lymphocytes 9 % (20-50) L 08/25/16 06:40 Monocytes 1 % (2-10) L 08/25/16 06:40 Eosinophils 2 % (0-5) 08/25/16 06:40 Basophils 1 % (0-3) 08/25/16 06:40 Platelet Estimate ADEQUATE (NORMAL) 08/25/16 06:40 Platelet Morphology GIANT PLATELETS SEEN (NORMAL) 08/25/16 06:40 Polychromasia 1+ 08/25/16 06:40 RBC Morph Micro Appear ABNORMAL (NORMAL) 08/25/16 06:40 PT 12.6 SECONDS (9.5-11.5) H 08/26/16 06:15 INR 1.20 (0.5-1.4) 08/26/16 06:15 PTT (Actin FS) 31.1 SECONDS (26.0-38.0) 08/26/16 06:15 Sodium 134 mEq/L (136-145) L 08/26/16 06:15 Potassium 4.2 mEq/L (3.5-5.1) 08/26/16 06:15 Chloride 97 mEq/L (98-107) L 08/26/16 06:15 Carbon Dioxide 27.7 mEq/L (21.0-31.0) 08/26/16 06:15 Anion Gap 13.5 (7.0-16.0) 08/26/16 06:15 BUN 29 mg/dL (7-25) H 08/26/16 06:15 Creatinine 5.8 mg/dL (0.7-1.3) H* 08/26/16 06:15 Est GFR ( Amer) 12.9 ml/min (>90) 08/26/16 06:15 Est GFR (Non-Af Amer) 10.7 ml/min 08/26/16 06:15 BUN/Creatinine Ratio 5.0 08/26/16 06:15 Glucose 182 mg/dL (70-105) H 08/26/16 06:15 POC Glucose 161 MG/DL (70 - 105) H 08/26/16 06:55 Hemoglobin A1c % 7.8 % (4.0-6.0) H 08/23/16 20:29 Uric Acid 8.5 mg/dL (4.4-7.6) H 08/24/16 06:12 Calcium 8.7 mg/dL (8.6-10.3) 08/26/16 06:15 Phosphorus 5.4 mg/dL (2.5-5.0) H 08/24/16 06:12 Magnesium 2.0 mg/dL (1.9-2.7) 08/24/16 06:12 Total Bilirubin 0.4 mg/dL (0.3-1.0) 08/26/16 06:15 AST 15 U/L (13-39) 08/26/16 06:15 ALT 19 U/L (7-52) 08/26/16 06:15 Alkaline Phosphatase 304 U/L (34-104) H 08/26/16 06:15 Total Protein 6.2 gm/dL (6.0-8.3) 08/26/16 06:15 Albumin 2.7 gm/dL (4.2-5.5) L 08/26/16 06:15 Globulin 3.5 gm/dL 08/26/16 06:15 Albumin/Globulin Ratio 0.8 (1.0-1.8) L 08/26/16 06:15 Triglycerides 90 mg/dL (<150) 08/24/16 06:12 Cholesterol 73 mg/dL (<200) 08/24/16 06:12 LDL Cholesterol Direct 25 mg/dL (75-193) L 08/24/16 06:12 HDL Cholesterol 28 mg/dL (23-92) 08/24/16 06:12 Amylase 14 U/L (29-103) L 08/25/16 06:40 Lipase 20 U/L (11-82) 08/24/16 06:12 Vitamin B12 1646 pg/mL (211-946) H 08/24/16 06:12 Vitamin D 25-Hydroxy 5.9 ng/mL (30.0-100.0) L 08/24/16 06:12 Free T4 0.91 ng/dL (0.82-1.77) 08/24/16 06:12 TSH 0.93 uIU/ml (0.34-5.60) 08/24/16 06:12 Random Vancomycin 26.2 ug/mL (5.0-40.0) 08/25/16 06:40 - Physical Exam Vitals and I&O: Vital Signs Temp 99.1 F 08/26/16 04:06 Pulse 11 08/26/16 04:06 Resp 18 08/26/16 04:06 BP 146/81 08/26/16 04:06 Pulse Ox 97 08/26/16 04:06 Intake & Output 08/25/16 08/26/16 08/26/16 18:59 06:59 18:59 Intake Total 700 Balance 700 Intake: Oral 700 Other: # Voids 3 # Bowel Movements 2 Active Medications: Current Medications Acetaminophen (Tylenol) 650 mg PO Q4H PRN PRN Reason: fever Stop: 10/22/16 19:59 Last Admin: 08/25/16 00:07 Dose: 650 mg Calcium Acetate (Phoslo) 667 mg PO TIDWM DEB Stop: 10/23/16 16:59 Last Admin: 08/26/16 08:48 Dose: Not Given Epoetin Tejas (Epogen) 10,000 units SUBQ MoWeFr DEB Stop: 10/23/16 14:14 Last Admin: 08/24/16 16:24 Dose: 10,000 units Hydromorphone HCl (Dilaudid) 1 mg IVP Q6HR PRN PRN Reason: Pain (Moderate) Stop: 10/22/16 19:59 Last Admin: 08/26/16 09:12 Dose: 1 mg Ceftriaxone Sodium 1 gm/ (Sodium Chloride) 50 mls @ 100 mls/hr IV Q24HR DEB Stop: 10/22/16 20:59 Last Admin: 08/25/16 20:59 Dose: 100 mls/hr Vancomycin HCl 1 gm/ Sodium (Chloride) 250 mls @ 165 mls/hr IV ONCE ONE Stop: 08/26/16 13:30 Insulin Aspart (Novolog Insulin Sliding Scale) 0 units SUBQ ACHS DEB PRN Reason: Protocol Stop: 10/23/16 07:29 Last Admin: 08/26/16 06:57 Dose: Not Given Miscellaneous (Clinical Monitoring) 1 ea DAILY PRN PRN Reason: RENAL Stop: 10/23/16 08:19 Miscellaneous (Vancomycin Iv Per Pharmacy) 1 [facility] PRN PRN PRN Reason: PROTOCOL Stop: 10/23/16 14:11 Ondansetron HCl (Zofran) 4 mg IV Q4H PRN PRN Reason: Nausea / Vomiting Stop: 10/24/16 18:51 Nutritional Asmnt/Malnutr-PDOC - Dietary Evaluation Malnutrition Findings (Please click <Entered> for more info): Nutritional Asmnt/Malnutrition Start: 08/25/16 15: 01 Text: Status: Active Freq: Document 08/25/16 15:01 GSUN (Rec: 08/25/16 15:18 GSTRES [id number]) Nutritional Asmnt/Malnutrition Patient General Information Nutritional Screening Consult Diagnosis Sepsis secondary to foot ulcer Pertinent Medical Hx/Surgical Hx DM, HTN, ESRD on HD Subjective Information 60 year old male from home with caregiver. RD consult for chronic wounds. Pt was alert with family at bedside during visit. Avg PO intake 100% of meals. Pt stated good appetite , would like more food. Pt expressed preference for fruits, RD explained consistant carb. RD vriefly discussed CCHO and renal diet. Pt does not wish to go in further detail at this time, stating he has a caregiver and speaks to a dietitian at HD center. Pt report UBW dry weight 88kg/193.6lb, denied recent weight changes. Current Diet Order/ Nutrition Support Renal, [id number] Pertinent Medications Epogen, Novolog, Vancomycin Pertinent Labs 08/23: A1c 7.8H 08/25: creatinine 4.6H, glucose 163H Nutritional Hx/Data Height 1.75 m Height (Calculated Centimeters) 175.3 Current Weight (lbs) 81.647 kg Weight (Calculated Kilograms) 81.6 Weight (Calculated Grams) 34424.6 Usual body Weight (lbs) 194 [place] Body Weight 160 Recent Weight Change No Weight Status Overweight GI Symptoms Skin Integrity/Comment: Filippo 16. Woudn care 08/24: chronic wound on right foot. Current %PO Good (75-100%) Estimated Nutritional Goals Calories/Kcals/Kg IBW 160lb/72.7kg Kcals Calculated 2181-2545kcal (30-35kcal/kg) Protein g/kg: IBW Protein Calculated 102-124g (1.4-1.7g/kg) Fluid: ml Per MD (ERDS on HD) Nutritional Problem 1. Problem Problem Increased kcal and prot needs related to Etiology hypermetabolic state Signs/Symptoms: H&P: sepsis secondary to foot ulcer, ESRD on HD Intervention/Recommendation Comments 1. Recommend [id number] due to pt is in hypermetbaolic state on HD and expressed hunger. Expected Outcomes/Goals Expected Outcomes/Goals 1. PO intake continue to meet at least 75% of estimated nutritional needs. 2. Provided brief edu on current diet, CCHO and renal. Pt does not wish to discuss further in detail as pt has a caregiver and speaks to a dietitan at HD center. RD made sure pt knows RD's availability if he should have any questions.
--- NOTE | 2016-08-26 10:47 | Consultation ---
DATE OF CONSULTATION: 08/26/2016 REFERRING PHYSICIAN: Emerson Victoria M.D. REASON FOR CONSULTATION: Gangrene right big toe. Thank you for referring this patient to me. HISTORY OF PRESENT ILLNESS: This is a 60-year-old male admitted through ER at [place] because of loss of consciousness. She was found to have blood sugar of 23 and was given dextrose. CT scan did not show any infarct. He has history of diabetes mellitus, hypertension, end-stage renal disease on hemodialysis. On this admission, the laboratory studies showed the WBC of 16,700 with hemoglobin of 8.6, neutrophils 87%. Chemistry: BUN is 21, creatinine of 4.6. Liver function tests are elevated including alkaline phosphatase. The patient underwent Doppler venous study, which was negative for DVT. Arterial studies showed monophasic waveforms in both lower extremities, worse on the left side. Physical examination shows gangrene of the right big toe at the first MP joint, medial aspect of the foot and plantar aspect. Bone scan shows no blood flow beyond the metatarsal head. Informed consent discussed with the patient and the daughter who is the caregiver regarding the need to amputate the big toe and the adjoining metatarsal. Depending on the vascularity of the tissue, ____ amputation possibility of including second toe and the amputation was discussed. We will schedule for surgery. [facility]# [id number]
--- NOTE | 2016-08-26 15:20 | General Progress Note ---
Subjective - Review of Systems Service Date: 08/26/16 Subjective: alert, currently being dialyzed Objective - Results Result Diagrams: 08/26/16 06:15 08/26/16 06:15 Recent Labs: Laboratory Last Values WBC 15.4 Th/cmm (4.8-10.8) H 08/26/16 06:15 RBC 2.70 Mil/cmm (4.30-5.70) L 08/26/16 06:15 Hgb 8.3 gm/dL (13.2-17.3) L 08/26/16 06:15 Hct 24.4 % (39.0-49.0) L 08/26/16 06:15 MCV 90.3 fl (80-99) 08/26/16 06:15 MCH 30.7 pg (26.0-30.0) H 08/26/16 06:15 MCHC Differential 34.1 pg (28.0-36.0) 08/26/16 06:15 RDW 13.8 % (11.5-20.0) 08/26/16 06:15 Plt Count 310 Th/cmm (150-400) 08/26/16 06:15 MPV 7.1 fl 08/26/16 06:15 Band Neutrophils % 1 % (0-10) 08/26/16 06:15 Neutrophils (Manual) 86 % (40-80) H 08/26/16 06:15 Lymphocytes 6 % (20-50) L 08/26/16 06:15 Monocytes 5 % (2-10) 08/26/16 06:15 Eosinophils 2 % (0-5) 08/26/16 06:15 Basophils 1 % (0-3) 08/25/16 06:40 Platelet Estimate ADEQUATE (NORMAL) 08/26/16 06:15 Platelet Morphology NORMAL (NORMAL) 08/26/16 06:15 Polychromasia 1+ 08/25/16 06:40 Anisocytosis 1+ 08/26/16 06:15 RBC Morph Micro Appear ABNORMAL (NORMAL) 08/26/16 06:15 PT 12.6 SECONDS (9.5-11.5) H 08/26/16 06:15 INR 1.20 (0.5-1.4) 08/26/16 06:15 PTT (Actin FS) 31.1 SECONDS (26.0-38.0) 08/26/16 06:15 Sodium 134 mEq/L (136-145) L 08/26/16 06:15 Potassium 4.2 mEq/L (3.5-5.1) 08/26/16 06:15 Chloride 97 mEq/L (98-107) L 08/26/16 06:15 Carbon Dioxide 27.7 mEq/L (21.0-31.0) 08/26/16 06:15 Anion Gap 13.5 (7.0-16.0) 08/26/16 06:15 BUN 29 mg/dL (7-25) H 08/26/16 06:15 Creatinine 5.8 mg/dL (0.7-1.3) H* 08/26/16 06:15 Est GFR ( Amer) 12.9 ml/min (>90) 08/26/16 06:15 Est GFR (Non-Af Amer) 10.7 ml/min 08/26/16 06:15 BUN/Creatinine Ratio 5.0 08/26/16 06:15 Glucose 182 mg/dL (70-105) H 08/26/16 06:15 POC Glucose 167 MG/DL (70 - 105) H 08/26/16 12:07 Hemoglobin A1c % 7.8 % (4.0-6.0) H 08/23/16 20:29 Uric Acid 8.5 mg/dL (4.4-7.6) H 08/24/16 06:12 Calcium 8.7 mg/dL (8.6-10.3) 08/26/16 06:15 Phosphorus 5.4 mg/dL (2.5-5.0) H 08/24/16 06:12 Magnesium 2.0 mg/dL (1.9-2.7) 08/24/16 06:12 Total Bilirubin 0.4 mg/dL (0.3-1.0) 08/26/16 06:15 AST 15 U/L (13-39) 08/26/16 06:15 ALT 19 U/L (7-52) 08/26/16 06:15 Alkaline Phosphatase 304 U/L (34-104) H 08/26/16 06:15 Total Protein 6.2 gm/dL (6.0-8.3) 08/26/16 06:15 Albumin 2.7 gm/dL (4.2-5.5) L 08/26/16 06:15 Globulin 3.5 gm/dL 08/26/16 06:15 Albumin/Globulin Ratio 0.8 (1.0-1.8) L 08/26/16 06:15 Triglycerides 90 mg/dL (<150) 08/24/16 06:12 Cholesterol 73 mg/dL (<200) 08/24/16 06:12 LDL Cholesterol Direct 25 mg/dL (75-193) L 08/24/16 06:12 HDL Cholesterol 28 mg/dL (23-92) 08/24/16 06:12 Amylase 14 U/L (29-103) L 08/25/16 06:40 Lipase 20 U/L (11-82) 08/24/16 06:12 Vitamin B12 1646 pg/mL (211-946) H 08/24/16 06:12 Vitamin D 25-Hydroxy 5.9 ng/mL (30.0-100.0) L 08/24/16 06:12 Free T4 0.91 ng/dL (0.82-1.77) 08/24/16 06:12 TSH 0.93 uIU/ml (0.34-5.60) 08/24/16 06:12 Random Vancomycin 26.2 ug/mL (5.0-40.0) 08/25/16 06:40 - Physical Exam Vitals and I&O: Vital Signs Temp 99.1 F 08/26/16 04:06 Pulse 11 08/26/16 04:06 Resp 18 08/26/16 04:06 BP 146/81 08/26/16 04:06 Pulse Ox 97 08/26/16 04:06 Intake & Output 08/25/16 08/26/16 08/26/16 18:59 06:59 18:59 Intake Total 700 Balance 700 Intake: Oral 700 Other: # Voids 3 # Bowel Movements 2 Active Medications: Current Medications Acetaminophen (Tylenol) 650 mg PO Q4H PRN PRN Reason: fever Stop: 10/22/16 19:59 Last Admin: 08/26/16 13:23 Dose: 650 mg Calcium Acetate (Phoslo) 667 mg PO TIDWM DEB Stop: 10/23/16 16:59 Last Admin: 08/26/16 13:23 Dose: 667 mg Epoetin Tejas (Epogen) 10,000 units SUBQ MoWeFr [facility] Stop: 10/23/16 14:14 Last Admin: 08/24/16 16:24 Dose: 10,000 units Hydromorphone HCl (Dilaudid) 1 mg IVP Q6HR PRN PRN Reason: Pain (Moderate) Stop: 10/22/16 19:59 Last Admin: 08/26/16 09:12 Dose: 1 mg Ceftriaxone Sodium 1 gm/ (Sodium Chloride) 50 mls @ 100 mls/hr IV Q24HR [facility] Stop: 10/22/16 20:59 Last Admin: 08/25/16 20:59 Dose: 100 mls/hr Insulin Aspart (Novolog Insulin Sliding Scale) 0 units SUBQ ACHS DEB PRN Reason: Protocol Stop: 10/23/16 07:29 Last Admin: 08/26/16 12:11 Dose: Not Given Miscellaneous (Clinical Monitoring) 1 [facility] DAILY PRN PRN Reason: RENAL Stop: 10/23/16 08:19 Miscellaneous (Vancomycin Iv Per Pharmacy) 1 [facility] PRN PRN PRN Reason: PROTOCOL Stop: 10/23/16 14:11 Ondansetron HCl (Zofran) 4 mg IV Q4H PRN PRN Reason: Nausea / Vomiting Stop: 10/24/16 18:51 General: Alert, No acute distress HEENT: Atraumatic, EOMI, Mucous membr. moist/pink Neck: Supple, +2 carotid pulse wo bruit Cardiovascular: Regular rate, Normal S1, Normal S2 Lungs: Clear to auscultation, Other Abdomen: Bowel sounds, Soft Extremities: no Edema Neurological: Sensation intact Skin: no Rash Psych/Mental Status: Mood NL Assessment/Plan - Assessment Assessment: ESRD on HD Met Enceph 2nd hypolglycemia Sepsis 2nd to Infected, Necrotic right foot ulcer DM2 Ess Htn Anemia of CKD B/L PAD - Plan Plan: Lab - Result Diagrams 08/25/16 06:40 08/25/16 06:40 Current Medications Acetaminophen (Tylenol) 650 mg PO Q4H PRN PRN Reason: fever Stop: 10/22/16 19:59 Last Admin: 08/25/16 00:07 Dose: 650 mg Calcium Acetate (Phoslo) 667 mg PO TIDWM [facility] Stop: 10/23/16 16:59 Last Admin: 08/25/16 16:15 Dose: 667 mg Epoetin Tejas (Epogen) 10,000 units SUBQ MoWeFr [facility] Stop: 10/23/16 14:14 Last Admin: 08/24/16 16:24 Dose: 10,000 units Hydromorphone HCl (Dilaudid) 1 mg IVP Q6HR PRN PRN Reason: Pain (Moderate) Stop: 10/22/16 19:59 Last Admin: 08/25/16 11:50 Dose: 1 mg Ceftriaxone Sodium 1 gm/ (Sodium Chloride) 50 mls @ 100 mls/hr IV Q24HR DEB Stop: 10/22/16 20:59 Last Admin: 08/24/16 20:48 Dose: 100 mls/hr Insulin Aspart (Novolog Insulin Sliding Scale) 0 units SUBQ ACHS DEB PRN Reason: Protocol Stop: 10/23/16 07:29 Last Admin: 08/25/16 11:51 Dose: 1,000 units Miscellaneous (Clinical Monitoring) 1 ea DAILY PRN PRN Reason: RENAL Stop: 10/23/16 08:19 Miscellaneous (Vancomycin Iv Per Pharmacy) 1 ea PRN PRN PRN Reason: PROTOCOL Stop: 10/23/16 14:11 currently being dialyzed continue Rocephin Right HODAN 1, Left HODAN 0.8 not indicative of severe PAD Possible ray amputation right 1st digit in am Nutritional Asmnt/Malnutr-PDOC - Dietary Evaluation Malnutrition Findings (Please click <Entered> for more info): Nutritional Asmnt/Malnutrition Start: 08/25/16 15: 01 Text: Status: Active Freq: Document 08/25/16 15:01 GSUN (Rec: 08/25/16 15:18 GSUN [id number]) Nutritional Asmnt/Malnutrition Patient General Information Nutritional Screening Consult Diagnosis Sepsis secondary to foot ulcer Pertinent Medical Hx/Surgical Hx DM, HTN, ESRD on HD Subjective Information 60 year old male from home with caregiver. RD consult for chronic wounds. Pt was alert with family at bedside during visit. Avg PO intake 100% of meals. Pt stated good appetite , would like more food. Pt expressed preference for fruits, RD explained consistant carb. RD vriefly discussed CCHO and renal diet. Pt does not wish to go in further detail at this time, stating he has a caregiver and speaks to a dietitian at HD center. Pt report UBW dry weight 88kg/193.6lb, denied recent weight changes. Current Diet Order/ Nutrition Support Renal, [id number] Pertinent Medications Epogen, Novolog, Vancomycin Pertinent Labs 08/23: A1c 7.8H 08/25: creatinine 4.6H, glucose 163H Nutritional Hx/Data Height 1.75 m Height (Calculated Centimeters) 175.3 Current Weight (lbs) 81.647 kg Weight (Calculated Kilograms) 81.6 Weight (Calculated Grams) 27499.6 Usual body Weight (lbs) 194 [place] Body Weight 160 Recent Weight Change No Weight Status Overweight GI Symptoms Skin Integrity/Comment: Filippo 16. Woudn care 08/24: chronic wound on right foot. Current %PO Good (75-100%) Estimated Nutritional Goals Calories/Kcals/Kg IBW 160lb/72.7kg Kcals Calculated 2181-2545kcal (30-35kcal/kg) Protein g/kg: IBW Protein Calculated 102-124g (1.4-1.7g/kg) Fluid: ml Per MD (ERDS on HD) Nutritional Problem 1. Problem Problem Increased kcal and prot needs related to Etiology hypermetabolic state Signs/Symptoms: H&P: sepsis secondary to foot ulcer, ESRD on HD Intervention/Recommendation Comments 1. Recommend [id number] due to pt is in hypermetbaolic state on HD and expressed hunger. Expected Outcomes/Goals Expected Outcomes/Goals 1. PO intake continue to meet at least 75% of estimated nutritional needs. 2. Provided brief edu on current diet, CCHO and renal. Pt does not wish to discuss further in detail as pt has a caregiver and speaks to a dietitan at HD center. RD made sure pt knows RD's availability if he should have any questions.
[2016-08-26] MEDS: cefTRIAXone 1 GM in Sodium Chloride 0.9% 50 ML IV SCH (20:55)
[2016-08-27] MEDS: INSULIN ASPART SLIDING SCALE 100 UNITS/ML UNIT SUBQ SCH ×5 (01:29→22:35)
[2016-08-27] MEDS: HYDROmorphone 1 mg/mL 1mL Syr IVP PRN ×3 (06:25→18:00)
[2016-08-27 07:19] LABS: % BASOPHILS 0.6 % (0.0-2.0); % EOSINOPHILS 1.9 % (0.0-5.0); % LYMPHOCYTES 7.5 % (20.0-50.0); % MONOCYTES 6.6 % (2.0-10.0); % NEUTROPHILS 83.4 % (40.0-80.0); HEMATOCRIT 26.4 % (39.0-49.0); HEMOGLOBIN 8.9 gm/dL (13.2-17.3); MEAN CELL VOLUME 89.5 fl (80-99); MEAN CORPUSCULAR HEMOGLOBIN 30.3 pg (26.0-30.0); MEAN CORPUSCULAR HGB CONC 33.9 pg (28.0-36.0); MEAN PLATELET VOLUME 7.3 fl; PLATELET COUNT 332 Th/cmm (150-400); RED BLOOD COUNT 2.95 Mil/cmm (4.30-5.70); RED CELL DISTRIBUTION WIDTH 13.7 % (11.5-20.0)
[2016-08-27 07:24] LABS: ALB/GLOB RATIO 0.8 (1.0-1.8); ANION GAP 11.3 (7.0-16.0); BILIRUBIN,TOTAL 0.4 mg/dL (0.3-1.0); BUN/CREATININE RATIO 3.9; CALCIUM SERUM 9.1 mg/dL (8.6-10.3); CARBON DIOXIDE 26.6 mEq/L (21.0-31.0); POTASSIUM SERUM 3.9 mEq/L (3.5-5.1)
[2016-08-27 07:30] LABS: CREATININE - SERUM 4.6 mg/dL (0.7-1.3)
[2016-08-27 07:57] LABS: WHITE BLOOD COUNT 13.3 Th/cmm (4.8-10.8)
[2016-08-27 08:11] LABS: HEP B CORE IGM Negative (Negative); HEP C ANTIBODY <0.1 s/co ratio (0.0-0.9)
--- NOTE | 2016-08-27 09:05 | General Progress Note ---
Subjective - Review of Systems Service Date: 08/27/16 Subjective: I want go home. Objective - Results Result Diagrams: 08/27/16 06:06 08/27/16 06:06 Recent Labs: Laboratory Last Values WBC 13.3 Th/cmm (4.8-10.8) H 08/27/16 06:06 RBC 2.95 Mil/cmm (4.30-5.70) L 08/27/16 06:06 Hgb 8.9 gm/dL (13.2-17.3) L 08/27/16 06:06 Hct 26.4 % (39.0-49.0) L 08/27/16 06:06 MCV 89.5 fl (80-99) 08/27/16 06:06 MCH 30.3 pg (26.0-30.0) H 08/27/16 06:06 MCHC Differential 33.9 pg (28.0-36.0) 08/27/16 06:06 RDW 13.7 % (11.5-20.0) 08/27/16 06:06 Plt Count 332 Th/cmm (150-400) 08/27/16 06:06 MPV 7.3 fl 08/27/16 06:06 Neutrophils % 83.4 % (40.0-80.0) H 08/27/16 06:06 Band Neutrophils % 1 % (0-10) 08/26/16 06:15 Lymphocytes % 7.5 % (20.0-50.0) L 08/27/16 06:06 Monocytes % 6.6 % (2.0-10.0) 08/27/16 06:06 Eosinophils % 1.9 % (0.0-5.0) 08/27/16 06:06 Basophils % 0.6 % (0.0-2.0) 08/27/16 06:06 Neutrophils (Manual) 86 % (40-80) H 08/26/16 06:15 Lymphocytes 6 % (20-50) L 08/26/16 06:15 Monocytes 5 % (2-10) 08/26/16 06:15 Eosinophils 2 % (0-5) 08/26/16 06:15 Basophils 1 % (0-3) 08/25/16 06:40 Platelet Estimate ADEQUATE (NORMAL) 08/26/16 06:15 Platelet Morphology NORMAL (NORMAL) 08/26/16 06:15 Polychromasia 1+ 08/25/16 06:40 Anisocytosis 1+ 08/26/16 06:15 RBC Morph Micro Appear ABNORMAL (NORMAL) 08/26/16 06:15 PT 12.6 SECONDS (9.5-11.5) H 08/26/16 06:15 INR 1.20 (0.5-1.4) 08/26/16 06:15 PTT (Actin FS) 31.1 SECONDS (26.0-38.0) 08/26/16 06:15 Sodium 134 mEq/L (136-145) L 08/27/16 06:06 Potassium 3.9 mEq/L (3.5-5.1) 08/27/16 06:06 Chloride 100 mEq/L (98-107) 08/27/16 06:06 Carbon Dioxide 26.6 mEq/L (21.0-31.0) 08/27/16 06:06 Anion Gap 11.3 (7.0-16.0) 08/27/16 06:06 BUN 18 mg/dL (7-25) 08/27/16 06:06 Creatinine 4.6 mg/dL (0.7-1.3) H* 08/27/16 06:06 Est GFR ( Amer) 16.8 ml/min (>90) 08/27/16 06:06 Est GFR (Non-Af Amer) 13.9 ml/min 08/27/16 06:06 BUN/Creatinine Ratio 3.9 08/27/16 06:06 Glucose 172 mg/dL (70-105) H 08/27/16 06:06 POC Glucose 173 MG/DL (70 - 105) H 08/27/16 06:21 Hemoglobin A1c % 7.8 % (4.0-6.0) H 08/23/16 20:29 Uric Acid 8.5 mg/dL (4.4-7.6) H 08/24/16 06:12 Calcium 9.1 mg/dL (8.6-10.3) 08/27/16 06:06 Phosphorus 5.4 mg/dL (2.5-5.0) H 08/24/16 06:12 Magnesium 2.0 mg/dL (1.9-2.7) 08/24/16 06:12 Total Bilirubin 0.4 mg/dL (0.3-1.0) 08/27/16 06:06 AST 21 U/L (13-39) 08/27/16 06:06 ALT 21 U/L (7-52) 08/27/16 06:06 Alkaline Phosphatase 318 U/L (34-104) H 08/27/16 06:06 Total Protein 6.9 gm/dL (6.0-8.3) 08/27/16 06:06 Albumin 3.1 gm/dL (4.2-5.5) L 08/27/16 06:06 Globulin 3.8 gm/dL 08/27/16 06:06 Albumin/Globulin Ratio 0.8 (1.0-1.8) L 08/27/16 06:06 Triglycerides 90 mg/dL (<150) 08/24/16 06:12 Cholesterol 73 mg/dL (<200) 08/24/16 06:12 LDL Cholesterol Direct 25 mg/dL (75-193) L 08/24/16 06:12 HDL Cholesterol 28 mg/dL (23-92) 08/24/16 06:12 Amylase 14 U/L (29-103) L 08/25/16 06:40 Lipase 20 U/L (11-82) 08/24/16 06:12 Vitamin B12 1646 pg/mL (211-946) H 08/24/16 06:12 Vitamin D 25-Hydroxy 5.9 ng/mL (30.0-100.0) L 08/24/16 06:12 Free T4 0.91 ng/dL (0.82-1.77) 08/24/16 06:12 TSH 0.93 uIU/ml (0.34-5.60) 08/24/16 06:12 Random Vancomycin 26.2 ug/mL (5.0-40.0) 08/25/16 06:40 Hepatitis A IgM Ab Negative (Negative) 08/26/16 06:15 Hep Bs Antigen Negative (Negative) 08/26/16 06:15 Hep B Core IgM Ab Negative (Negative) 08/26/16 06:15 Hepatitis C Antibody <0.1 s/co ratio (0.0-0.9) 08/26/16 06:15 - Physical Exam Vitals and I&O: Vital Signs Temp 98.6 F 08/27/16 04:00 Pulse 74 08/27/16 04:00 Resp 20 08/27/16 04:00 BP 161/65 08/27/16 04:00 Pulse Ox 98 08/27/16 04:00 Intake & Output 08/26/16 08/27/16 08/27/16 18:59 06:59 18:59 Intake Total 2500 300 Output Total 3000 Balance -500 300 Intake: Oral 2500 300 Output: Hemodialysis 3000 Other: # Bowel Movements 1 Active Medications: Current Medications Acetaminophen (Tylenol) 650 mg PO Q4H PRN PRN Reason: fever Stop: 10/22/16 19:59 Last Admin: 08/26/16 21:22 Dose: 650 mg Calcium Acetate (Phoslo) 667 mg PO TIDWM DEB Stop: 10/23/16 16:59 Last Admin: 08/27/16 08:25 Dose: Not Given Epoetin Tejas (Epogen) 10,000 units SUBQ MoWeFr DEB Stop: 10/23/16 14:14 Last Admin: 08/24/16 16:24 Dose: 10,000 units Hydromorphone HCl (Dilaudid) 1 mg IVP Q6HR PRN PRN Reason: Pain (Moderate) Stop: 10/22/16 19:59 Last Admin: 08/27/16 06:25 Dose: 1 mg Ceftriaxone Sodium 1 gm/ (Sodium Chloride) 50 mls @ 100 mls/hr IV Q24HR [facility] Stop: 10/22/16 20:59 Last Admin: 08/26/16 20:55 Dose: 100 mls/hr Insulin Aspart (Novolog Insulin Sliding Scale) 0 units SUBQ ACHS DEB PRN Reason: Protocol Stop: 10/23/16 07:29 Last Admin: 08/27/16 01:29 Dose: Not Given Miscellaneous (Clinical Monitoring) 1 ea MC DAILY PRN PRN Reason: RENAL Stop: 10/23/16 08:19 Miscellaneous (Vancomycin Iv Per Pharmacy) 1 ea MC PRN PRN PRN Reason: PROTOCOL Stop: 10/23/16 14:11 Ondansetron HCl (Zofran) 4 mg IV Q4H PRN PRN Reason: Nausea / Vomiting Stop: 10/24/16 18:51 General: Alert, Oriented x3, Cooperative, No acute distress, Moderate distress Cardiovascular: Regular rate Lungs: Clear to auscultation Abdomen: Bowel sounds, Soft Extremities: Other (Right foot Diabetic ulcer) Neurological: Other (Non ambulatory at this moment) Skin: Other (Diabetic ulcer) Psych/Mental Status: Mental status NL Assessment/Plan - Assessment Assessment: Patient is awake, alert, calm, in no acute distress. WBC improving. Bone scan shows no osteomyelitis. Dx: Sepsis to Diabetic ulcer, DM, HTN, ESRD on HD. - Plan Plan: Patient in Rocephin, IV NS. Surgery will be done today. Will continue to monitor. Nutritional Asmnt/Malnutr-PDOC - Dietary Evaluation Malnutrition Findings (Please click <Entered> for more info): Nutritional Asmnt/Malnutrition Start: 08/25/16 15: 01 Text: Status: Active Freq: Document 08/25/16 15:01 [facility] (Rec: 08/25/16 15:18 [id number] [id number]) Nutritional Asmnt/Malnutrition Patient General Information Nutritional Screening Consult Diagnosis Sepsis secondary to foot ulcer Pertinent Medical Hx/Surgical Hx DM, HTN, ESRD on HD Subjective Information 60 year old male from home with caregiver. RD consult for chronic wounds. Pt was alert with family at bedside during visit. Avg PO intake 100% of meals. Pt stated good appetite , would like more food. Pt expressed preference for fruits, RD explained consistant carb. RD vriefly discussed CCHO and renal diet. Pt does not wish to go in further detail at this time, stating he has a caregiver and speaks to a dietitian at HD center. Pt report UBW dry weight 88kg/193.6lb, denied recent weight changes. Current Diet Order/ Nutrition Support Renal, [id number] Pertinent Medications Epogen, Novolog, Vancomycin Pertinent Labs 08/23: A1c 7.8H 08/25: creatinine 4.6H, glucose 163H Nutritional Hx/Data Height 1.75 m Height (Calculated Centimeters) 175.3 Current Weight (lbs) 81.647 kg Weight (Calculated Kilograms) 81.6 Weight (Calculated Grams) 85138.6 Usual body Weight (lbs) 194 [place] Body Weight 160 Recent Weight Change No Weight Status Overweight GI Symptoms Skin Integrity/Comment: Filippo 16. Woudn care 08/24: chronic wound on right foot. Current %PO Good (75-100%) Estimated Nutritional Goals Calories/Kcals/Kg IBW 160lb/72.7kg Kcals Calculated 2181-2545kcal (30-35kcal/kg) Protein g/kg: IBW Protein Calculated 102-124g (1.4-1.7g/kg) Fluid: ml Per MD (ERDS on HD) Nutritional Problem 1. Problem Problem Increased kcal and prot needs related to Etiology hypermetabolic state Signs/Symptoms: H&P: sepsis secondary to foot ulcer, ESRD on HD Intervention/Recommendation Comments 1. Recommend [id number] due to pt is in hypermetbaolic state on HD and expressed hunger. Expected Outcomes/Goals Expected Outcomes/Goals 1. PO intake continue to meet at least 75% of estimated nutritional needs. 2. Provided brief edu on current diet, CCHO and renal. Pt does not wish to discuss further in detail as pt has a caregiver and speaks to a dietitan at HD center. RD made sure pt knows RD's availability if he should have any questions.
[2016-08-27] MEDS ORDERED: Midazolam 1mg/ml 2 ml vial IV ONE ×2 (14:16→14:17)
[2016-08-27] MEDS ORDERED: Meperidine 25 mg/mL 1mL Syr IVP PRN (14:49)
[2016-08-27] MEDS ORDERED: Lactated Ringer 1,000 ML IV SCH (15:00)
--- NOTE | 2016-08-27 19:32 | General Progress Note ---
Subjective - Review of Systems Service Date: 08/27/16 Subjective: alert, pain right foot Objective - Results Result Diagrams: 08/27/16 06:06 08/27/16 06:06 Recent Labs: Laboratory Last Values WBC 13.3 Th/cmm (4.8-10.8) H 08/27/16 06:06 RBC 2.95 Mil/cmm (4.30-5.70) L 08/27/16 06:06 Hgb 8.9 gm/dL (13.2-17.3) L 08/27/16 06:06 Hct 26.4 % (39.0-49.0) L 08/27/16 06:06 MCV 89.5 fl (80-99) 08/27/16 06:06 MCH 30.3 pg (26.0-30.0) H 08/27/16 06:06 MCHC Differential 33.9 pg (28.0-36.0) 08/27/16 06:06 RDW 13.7 % (11.5-20.0) 08/27/16 06:06 Plt Count 332 Th/cmm (150-400) 08/27/16 06:06 MPV 7.3 fl 08/27/16 06:06 Neutrophils % 83.4 % (40.0-80.0) H 08/27/16 06:06 Band Neutrophils % 1 % (0-10) 08/26/16 06:15 Lymphocytes % 7.5 % (20.0-50.0) L 08/27/16 06:06 Monocytes % 6.6 % (2.0-10.0) 08/27/16 06:06 Eosinophils % 1.9 % (0.0-5.0) 08/27/16 06:06 Basophils % 0.6 % (0.0-2.0) 08/27/16 06:06 Neutrophils (Manual) 86 % (40-80) H 08/26/16 06:15 Lymphocytes 6 % (20-50) L 08/26/16 06:15 Monocytes 5 % (2-10) 08/26/16 06:15 Eosinophils 2 % (0-5) 08/26/16 06:15 Basophils 1 % (0-3) 08/25/16 06:40 Platelet Estimate ADEQUATE (NORMAL) 08/26/16 06:15 Platelet Morphology NORMAL (NORMAL) 08/26/16 06:15 Polychromasia 1+ 08/25/16 06:40 Anisocytosis 1+ 08/26/16 06:15 RBC Morph Micro Appear ABNORMAL (NORMAL) 08/26/16 06:15 PT 12.6 SECONDS (9.5-11.5) H 08/26/16 06:15 INR 1.20 (0.5-1.4) 08/26/16 06:15 PTT (Actin FS) 31.1 SECONDS (26.0-38.0) 08/26/16 06:15 Sodium 134 mEq/L (136-145) L 08/27/16 06:06 Potassium 3.9 mEq/L (3.5-5.1) 08/27/16 06:06 Chloride 100 mEq/L (98-107) 08/27/16 06:06 Carbon Dioxide 26.6 mEq/L (21.0-31.0) 08/27/16 06:06 Anion Gap 11.3 (7.0-16.0) 08/27/16 06:06 BUN 18 mg/dL (7-25) 08/27/16 06:06 Creatinine 4.6 mg/dL (0.7-1.3) H* 08/27/16 06:06 Est GFR ( Amer) 16.8 ml/min (>90) 08/27/16 06:06 Est GFR (Non-Af Amer) 13.9 ml/min 08/27/16 06:06 BUN/Creatinine Ratio 3.9 08/27/16 06:06 Glucose 172 mg/dL (70-105) H 08/27/16 06:06 POC Glucose 134 MG/DL (70 - 105) H 08/27/16 16:25 Hemoglobin A1c % 7.8 % (4.0-6.0) H 08/23/16 20:29 Uric Acid 8.5 mg/dL (4.4-7.6) H 08/24/16 06:12 Calcium 9.1 mg/dL (8.6-10.3) 08/27/16 06:06 Phosphorus 5.4 mg/dL (2.5-5.0) H 08/24/16 06:12 Magnesium 2.0 mg/dL (1.9-2.7) 08/24/16 06:12 Total Bilirubin 0.4 mg/dL (0.3-1.0) 08/27/16 06:06 AST 21 U/L (13-39) 08/27/16 06:06 ALT 21 U/L (7-52) 08/27/16 06:06 Alkaline Phosphatase 318 U/L (34-104) H 08/27/16 06:06 Total Protein 6.9 gm/dL (6.0-8.3) 08/27/16 06:06 Albumin 3.1 gm/dL (4.2-5.5) L 08/27/16 06:06 Globulin 3.8 gm/dL 08/27/16 06:06 Albumin/Globulin Ratio 0.8 (1.0-1.8) L 08/27/16 06:06 Triglycerides 90 mg/dL (<150) 08/24/16 06:12 Cholesterol 73 mg/dL (<200) 08/24/16 06:12 LDL Cholesterol Direct 25 mg/dL (75-193) L 08/24/16 06:12 HDL Cholesterol 28 mg/dL (23-92) 08/24/16 06:12 Amylase 14 U/L (29-103) L 08/25/16 06:40 Lipase 20 U/L (11-82) 08/24/16 06:12 Vitamin B12 1646 pg/mL (211-946) H 08/24/16 06:12 Vitamin D 25-Hydroxy 5.9 ng/mL (30.0-100.0) L 08/24/16 06:12 Free T4 0.91 ng/dL (0.82-1.77) 08/24/16 06:12 TSH 0.93 uIU/ml (0.34-5.60) 08/24/16 06:12 Random Vancomycin 26.2 ug/mL (5.0-40.0) 08/25/16 06:40 Hepatitis A IgM Ab Negative (Negative) 08/26/16 06:15 Hep Bs Antigen Negative (Negative) 08/26/16 06:15 Hep B Core IgM Ab Negative (Negative) 08/26/16 06:15 Hepatitis C Antibody <0.1 s/co ratio (0.0-0.9) 08/26/16 06:15 - Physical Exam Vitals and I&O: Vital Signs Temp 98.1 F 08/27/16 08:00 Pulse 78 08/27/16 08:00 Resp 20 08/27/16 08:00 BP 157/70 08/27/16 08:00 Pulse Ox 96 08/27/16 08:00 Intake & Output 08/27/16 08/27/16 08/28/16 06:59 18:59 06:59 Intake Total 300 Balance 300 Intake: Oral 300 Active Medications: Current Medications Acetaminophen (Tylenol) 650 mg PO Q4H PRN PRN Reason: fever Stop: 10/22/16 19:59 Last Admin: 08/27/16 16:45 Dose: 650 mg Calcium Acetate (Phoslo) 667 mg PO TIDWM DEB Stop: 10/23/16 16:59 Last Admin: 08/27/16 17:42 Dose: 667 mg Epoetin Tejas (Epogen) 10,000 units SUBQ [facility] Stop: 10/23/16 14:14 Last Admin: 08/24/16 16:24 Dose: 10,000 units Hydromorphone HCl (Dilaudid) 1 mg IVP Q6HR PRN PRN Reason: Pain (Moderate) Stop: 10/22/16 19:59 Last Admin: 08/27/16 18:00 Dose: 1 mg Ceftriaxone Sodium 1 gm/ (Sodium Chloride) 50 mls @ 100 mls/hr IV Q24HR [facility] Stop: 10/22/16 20:59 Last Admin: 08/26/16 20:55 Dose: 100 mls/hr Lactated Ringer's (Lactated Ringer) 1,000 mls @ 0 mls/hr IV .Q0M DEB PRN Reason: TKO Stop: 08/28/16 14:59 Insulin Aspart (Novolog Insulin Sliding Scale) 0 units SUBQ ACHS DEB PRN Reason: Protocol Stop: 10/23/16 07:29 Last Admin: 08/27/16 16:51 Dose: Not Given Meperidine HCl (Demerol) 12.5 mg IVP UD PRN PRN Reason: POST-OP PAIN Stop: 08/28/16 14:48 Miscellaneous (Clinical Monitoring) 1 ea MC DAILY PRN PRN Reason: RENAL Stop: 10/23/16 08:19 Miscellaneous (Vancomycin Iv Per Pharmacy) 1 ea MC PRN PRN PRN Reason: PROTOCOL Stop: 10/23/16 14:11 Ondansetron HCl (Zofran) 4 mg IV Q4H PRN PRN Reason: Nausea / Vomiting Stop: 10/24/16 18:51 General: Alert, Other (pain right foot) HEENT: Atraumatic, Mucous membr. moist/pink Neck: Supple, +2 carotid pulse wo bruit Cardiovascular: Regular rate, Normal S1, Normal S2 Lungs: Clear to auscultation Abdomen: Bowel sounds, Soft Extremities: no Edema Neurological: Sensation intact Skin: no Rash Psych/Mental Status: Mood NL Assessment/Plan - Assessment Assessment: ESRD on HD Met Enceph 2nd hypolglycemia Sepsis 2nd to Infected, Necrotic right foot ulcer DM2 Ess Htn Anemia of CKD B/L PAD - Plan Plan: Lab - Result Diagrams 08/25/16 06:40 08/25/16 06:40 Current Medications Acetaminophen (Tylenol) 650 mg PO Q4H PRN PRN Reason: fever Stop: 10/22/16 19:59 Last Admin: 08/25/16 00:07 Dose: 650 mg Calcium Acetate (Phoslo) 667 mg PO TIDWM [facility] Stop: 10/23/16 16:59 Last Admin: 08/25/16 16:15 Dose: 667 mg Epoetin Tejas (Epogen) 10,000 units SUBQ [facility] Stop: 10/23/16 14:14 Last Admin: 08/24/16 16:24 Dose: 10,000 units Hydromorphone HCl (Dilaudid) 1 mg IVP Q6HR PRN PRN Reason: Pain (Moderate) Stop: 10/22/16 19:59 Last Admin: 08/25/16 11:50 Dose: 1 mg Ceftriaxone Sodium 1 gm/ (Sodium Chloride) 50 mls @ 100 mls/hr IV Q24HR [facility] Stop: 10/22/16 20:59 Last Admin: 08/24/16 20:48 Dose: 100 mls/hr Insulin Aspart (Novolog Insulin Sliding Scale) 0 units SUBQ ACHS DEB PRN Reason: Protocol Stop: 10/23/16 07:29 Last Admin: 08/25/16 11:51 Dose: 1,000 units Miscellaneous (Clinical Monitoring) 1 ea DAILY PRN PRN Reason: RENAL Stop: 10/23/16 08:19 Miscellaneous (Vancomycin Iv Per Pharmacy) 1 ea MC PRN PRN PRN Reason: PROTOCOL Stop: 10/23/16 14:11 schedule for HD in am continue Rocephin Right HODAN 1, Left HODAN 0.8 not indicative of severe PAD Pt. 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 RD consult for chronic wounds. Pt was alert with family at bedside during visit. Avg PO intake 100% of meals. Pt stated good appetite , would like more food. Pt expressed preference for fruits, RD explained consistant carb. RD vriefly discussed CCHO and renal diet. Pt does not wish to go in further detail at this time, stating he has a caregiver and speaks to a dietitian at HD center. Pt report UBW dry weight 88kg/193.6lb, denied recent weight changes. Current Diet Order/ Nutrition Support Renal, [id number] Pertinent Medications Epogen, Novolog, Vancomycin Pertinent Labs 08/23: A1c 7.8H 08/25: creatinine 4.6H, glucose 163H Nutritional Hx/Data Height 1.75 m Height (Calculated Centimeters) 175.3 Current Weight (lbs) 81.647 kg Weight (Calculated Kilograms) 81.6 Weight (Calculated Grams) 50434.6 Usual body Weight (lbs) 194 [place] Body Weight 160 Recent Weight Change No Weight Status Overweight GI Symptoms Skin Integrity/Comment: Filippo Gonzalez. Woudn care 08/24: chronic wound on right foot. Current %PO Good (75-100%) Estimated Nutritional Goals Calories/Kcals/Kg IBW 160lb/72.7kg Kcals Calculated 2181-2545kcal (30-35kcal/kg) Protein g/kg: IBW Protein Calculated 102-124g (1.4-1.7g/kg) Fluid: ml Per MD (ERDS on HD) Nutritional Problem 1. Problem Problem Increased kcal and prot needs related to Etiology hypermetabolic state Signs/Symptoms: H&P: sepsis secondary to foot ulcer, ESRD on HD Intervention/Recommendation Comments 1. Recommend [id number] due to pt is in hypermetbaolic state on HD and expressed hunger. Expected Outcomes/Goals Expected Outcomes/Goals 1. PO intake continue to meet at least 75% of estimated nutritional needs. 2. Provided brief edu on current diet, CCHO and renal. Pt does not wish to discuss further in detail as pt has a caregiver and speaks to a dietitan at HD center. RD made sure pt knows RD's availability if he should have any questions.
--- NOTE | 2016-08-27 19:54 | Operative Report ---
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 osteomyelitis of 1st MP joint 3. diabetes mellitus 4. End stage renal disease on hemodialysis Post Op diagnosis: infected 1st and 2nd MP joints with rio pus INDICATIONS FOR SURGERY: The patient with gangrene of the right first MP joint with a bone scan showing no flow beyond the joint. Daughter and patient informed about procedure that might include amputation of toes and metatarsals. If no blood flow might need more proximal amputation OPERATIVE FINDINGS: There was purulent material at the MP joints at the first and second toe necessitating open amputation leaving the stump open and connected to wound vac. DESCRIPTION OF PROCEDURE: The patient was given spinal anesthesia. The right foot was prepped with Betadine and draped in appropriate manner. An incision was made just beyond the necrotic tissue on the dorsum and plantar aspect of the toe extending from the first to the second as the second toe was also gangrenous. This was carried all the way down to the MP joint and purulent material was encountered in both MP joints. The metatarsal, first and second were transected with saw. Bleeders were electrocoagulated and irrigation with saline solution is done. A triple antibiotic ointment was applied and wound VAC. The patient tolerated procedure well. JOB# [id number] [id number]
[2016-08-27] MEDS ORDERED: HYDROmorphone 1 mg/mL 1mL Syr IVP ONE (20:00)
[2016-08-27] MEDS: cefTRIAXone 1 GM in Sodium Chloride 0.9% 50 ML IV SCH (22:35)
[2016-08-28] MEDS: INSULIN ASPART SLIDING SCALE 100 UNITS/ML UNIT SUBQ SCH ×4 (06:41→21:47)
[2016-08-28] MEDS: HYDROmorphone 1 mg/mL 1mL Syr IVP PRN ×3 (06:42→19:39)
--- NOTE | 2016-08-28 09:09 | General Progress Note ---
Subjective - Review of Systems Service Date: 08/28/16 Subjective: I have pain Objective - Results Result Diagrams: 08/27/16 06:06 08/27/16 06:06 Recent Labs: Laboratory Last Values WBC 13.3 Th/cmm (4.8-10.8) H 08/27/16 06:06 RBC 2.95 Mil/cmm (4.30-5.70) L 08/27/16 06:06 Hgb 8.9 gm/dL (13.2-17.3) L 08/27/16 06:06 Hct 26.4 % (39.0-49.0) L 08/27/16 06:06 MCV 89.5 fl (80-99) 08/27/16 06:06 MCH 30.3 pg (26.0-30.0) H 08/27/16 06:06 MCHC Differential 33.9 pg (28.0-36.0) 08/27/16 06:06 RDW 13.7 % (11.5-20.0) 08/27/16 06:06 Plt Count 332 Th/cmm (150-400) 08/27/16 06:06 MPV 7.3 fl 08/27/16 06:06 Neutrophils % 83.4 % (40.0-80.0) H 08/27/16 06:06 Band Neutrophils % 1 % (0-10) 08/26/16 06:15 Lymphocytes % 7.5 % (20.0-50.0) L 08/27/16 06:06 Monocytes % 6.6 % (2.0-10.0) 08/27/16 06:06 Eosinophils % 1.9 % (0.0-5.0) 08/27/16 06:06 Basophils % 0.6 % (0.0-2.0) 08/27/16 06:06 Neutrophils (Manual) 86 % (40-80) H 08/26/16 06:15 Lymphocytes 6 % (20-50) L 08/26/16 06:15 Monocytes 5 % (2-10) 08/26/16 06:15 Eosinophils 2 % (0-5) 08/26/16 06:15 Basophils 1 % (0-3) 08/25/16 06:40 Platelet Estimate ADEQUATE (NORMAL) 08/26/16 06:15 Platelet Morphology NORMAL (NORMAL) 08/26/16 06:15 Polychromasia 1+ 08/25/16 06:40 Anisocytosis 1+ 08/26/16 06:15 RBC Morph Micro Appear ABNORMAL (NORMAL) 08/26/16 06:15 PT 12.6 SECONDS (9.5-11.5) H 08/26/16 06:15 INR 1.20 (0.5-1.4) 08/26/16 06:15 PTT (Actin FS) 31.1 SECONDS (26.0-38.0) 08/26/16 06:15 Sodium 134 mEq/L (136-145) L 08/27/16 06:06 Potassium 3.9 mEq/L (3.5-5.1) 08/27/16 06:06 Chloride 100 mEq/L (98-107) 08/27/16 06:06 Carbon Dioxide 26.6 mEq/L (21.0-31.0) 08/27/16 06:06 Anion Gap 11.3 (7.0-16.0) 08/27/16 06:06 BUN 18 mg/dL (7-25) 08/27/16 06:06 Creatinine 4.6 mg/dL (0.7-1.3) H* 08/27/16 06:06 Est GFR ( Amer) 16.8 ml/min (>90) 08/27/16 06:06 Est GFR (Non-Af Amer) 13.9 ml/min 08/27/16 06:06 BUN/Creatinine Ratio 3.9 08/27/16 06:06 Glucose 172 mg/dL (70-105) H 08/27/16 06:06 POC Glucose 189 MG/DL (70 - 105) H 08/28/16 06:37 Hemoglobin A1c % 7.8 % (4.0-6.0) H 08/23/16 20:29 Uric Acid 8.5 mg/dL (4.4-7.6) H 08/24/16 06:12 Calcium 9.1 mg/dL (8.6-10.3) 08/27/16 06:06 Phosphorus 5.4 mg/dL (2.5-5.0) H 08/24/16 06:12 Magnesium 2.0 mg/dL (1.9-2.7) 08/24/16 06:12 Total Bilirubin 0.4 mg/dL (0.3-1.0) 08/27/16 06:06 AST 21 U/L (13-39) 08/27/16 06:06 ALT 21 U/L (7-52) 08/27/16 06:06 Alkaline Phosphatase 318 U/L (34-104) H 08/27/16 06:06 Total Protein 6.9 gm/dL (6.0-8.3) 08/27/16 06:06 Albumin 3.1 gm/dL (4.2-5.5) L 08/27/16 06:06 Globulin 3.8 gm/dL 08/27/16 06:06 Albumin/Globulin Ratio 0.8 (1.0-1.8) L 08/27/16 06:06 Triglycerides 90 mg/dL (<150) 08/24/16 06:12 Cholesterol 73 mg/dL (<200) 08/24/16 06:12 LDL Cholesterol Direct 25 mg/dL (75-193) L 08/24/16 06:12 HDL Cholesterol 28 mg/dL (23-92) 08/24/16 06:12 Amylase 14 U/L (29-103) L 08/25/16 06:40 Lipase 20 U/L (11-82) 08/24/16 06:12 Vitamin B12 1646 pg/mL (211-946) H 08/24/16 06:12 Vitamin D 25-Hydroxy 5.9 ng/mL (30.0-100.0) L 08/24/16 06:12 Free T4 0.91 ng/dL (0.82-1.77) 08/24/16 06:12 TSH 0.93 uIU/ml (0.34-5.60) 08/24/16 06:12 Random Vancomycin 26.2 ug/mL (5.0-40.0) 08/25/16 06:40 Hepatitis A IgM Ab Negative (Negative) 08/26/16 06:15 Hep Bs Antigen Negative (Negative) 08/26/16 06:15 Hep B Core IgM Ab Negative (Negative) 08/26/16 06:15 Hepatitis C Antibody <0.1 s/co ratio (0.0-0.9) 08/26/16 06:15 - Physical Exam Vitals and I&O: Vital Signs Temp 97.6 F 08/28/16 04:00 Pulse 76 08/28/16 04:00 Resp 20 08/28/16 04:00 BP 142/64 08/28/16 04:00 Pulse Ox 100 08/28/16 04:00 Intake & Output 08/27/16 08/28/16 08/28/16 18:59 06:59 18:59 Intake Total 100 Balance 100 Intake: Oral 100 Active Medications: Current Medications Acetaminophen (Tylenol) 650 mg PO Q4H PRN PRN Reason: fever Stop: 10/22/16 19:59 Last Admin: 08/27/16 16:45 Dose: 650 mg Calcium Acetate (Phoslo) 667 mg PO TIDWM DEB Stop: 10/23/16 16:59 Last Admin: 08/28/16 08:45 Dose: 667 mg Epoetin Tejas (Epogen) 10,000 units SUBQ MoWeFr [facility] Stop: 10/23/16 14:14 Last Admin: 08/24/16 16:24 Dose: 10,000 units Hydromorphone HCl (Dilaudid) 1 mg IVP Q4HR PRN PRN Reason: Severe Pain Stop: 10/26/16 19:58 Last Admin: 08/28/16 06:42 Dose: 1 mg Ceftriaxone Sodium 1 gm/ (Sodium Chloride) 50 mls @ 100 mls/hr IV Q24HR DEB Stop: 10/22/16 20:59 Last Admin: 08/27/16 22:35 Dose: 100 mls/hr Lactated Ringer's (Lactated Ringer) 1,000 mls @ 0 mls/hr IV .Q0M DEB PRN Reason: TKO Stop: 08/28/16 14:59 Insulin Aspart (Novolog Insulin Sliding Scale) 0 units SUBQ ACHS DEB PRN Reason: Protocol Stop: 10/23/16 07:29 Last Admin: 08/28/16 06:41 Dose: Not Given Meperidine HCl (Demerol) 12.5 mg IVP UD PRN PRN Reason: POST-OP PAIN Stop: 08/28/16 14:48 Miscellaneous (Clinical Monitoring) 1 ea DAILY PRN PRN Reason: RENAL Stop: 10/23/16 08:19 Miscellaneous (Vancomycin Iv Per Pharmacy) 1 ea PRN PRN PRN Reason: PROTOCOL Stop: 10/23/16 14:11 Ondansetron HCl (Zofran) 4 mg IV Q4H PRN PRN Reason: Nausea / Vomiting Stop: 10/24/16 18:51 Tramadol HCl (Ultram) 50 mg PO Q4HR PRN PRN Reason: Pain (Moderate) Stop: 10/27/16 09:02 General: Alert, Oriented x3, Cooperative, No acute distress HEENT: Atraumatic Neck: Supple Cardiovascular: Regular rate Lungs: Clear to auscultation Abdomen: Bowel sounds, Soft Extremities: Other (Right feet cover with pierre) Neurological: Other (Non ambulatory at this moment) Psych/Mental Status: Mental status NL Assessment/Plan - Assessment Assessment: Patient is awake, alert, calm, in some distress due to pain. Dx: Sepsis to Diabetic ulcer, DM, HTN, ESRD on HD. - Plan Plan: Patient in Rocephin, IV NS. Surgery was done. Amputation of first and second toe were amputated. Will continue to monitor. Nutritional Asmnt/Malnutr-PDOC - Dietary Evaluation Malnutrition Findings (Please click <Entered> for more info): Nutritional Asmnt/Malnutrition Start: 08/25/16 15: 01 Text: Status: Active Freq: Document 08/25/16 15:01 TRES (Rec: 08/25/16 15:18 [email or web address] [email or web address]) Nutritional Asmnt/Malnutrition Patient General Information Nutritional Screening Consult Diagnosis Sepsis secondary to foot ulcer Pertinent Medical Hx/Surgical Hx DM, HTN, ESRD on HD Subjective Information 60 year old male from home with caregiver. RD consult for chronic wounds. Pt was alert with family at bedside during visit. Avg PO intake 100% of meals. Pt stated good appetite , would like more food. Pt expressed preference for fruits, RD explained consistant carb. RD vriefly discussed CCHO and renal diet. Pt does not wish to go in further detail at this time, stating he has a caregiver and speaks to a dietitian at HD center. Pt report UBW dry weight 88kg/193.6lb, denied recent weight changes. Current Diet Order/ Nutrition Support Renal, [id number] Pertinent Medications Epogen, Novolog, Vancomycin Pertinent Labs 08/23: A1c 7.8H 08/25: creatinine 4.6H, glucose 163H Nutritional Hx/Data Height 1.75 m Height (Calculated Centimeters) 175.3 Current Weight (lbs) 81.647 kg Weight (Calculated Kilograms) 81.6 Weight (Calculated Grams) 87400.6 Usual body Weight (lbs) 194 [place] Body Weight 160 Recent Weight Change No Weight Status Overweight GI Symptoms Skin Integrity/Comment: Filippo Gonzalez. Woudn care 08/24: chronic wound on right foot. Current %PO Good (75-100%) Estimated Nutritional Goals Calories/Kcals/Kg IBW 160lb/72.7kg Kcals Calculated 2181-2545kcal (30-35kcal/kg) Protein g/kg: IBW Protein Calculated 102-124g (1.4-1.7g/kg) Fluid: ml Per MD (ERDS on HD) Nutritional Problem 1. Problem Problem Increased kcal and prot needs related to Etiology hypermetabolic state Signs/Symptoms: H&P: sepsis secondary to foot ulcer, ESRD on HD Intervention/Recommendation Comments 1. Recommend [id number] due to pt is in hypermetbaolic state on HD and expressed hunger. Expected Outcomes/Goals Expected Outcomes/Goals 1. PO intake continue to meet at least 75% of estimated nutritional needs. 2. Provided brief edu on current diet, CCHO and renal. Pt does not wish to discuss further in detail as pt has a caregiver and speaks to a dietitan at HD center. RD made sure pt knows RD's availability if he should have any questions.
--- NOTE | 2016-08-28 09:44 | General Progress Note ---
Subjective - Review of Systems Service Date: 08/28/16 Events since last encounter: 08/28/16 discussed with - will need more proximal ampuitation talked to sister who will inform the family and make decision Objective - Results Result Diagrams: 08/27/16 06:06 08/27/16 06:06 Recent Labs: Laboratory Last Values WBC 13.3 Th/cmm (4.8-10.8) H 08/27/16 06:06 RBC 2.95 Mil/cmm (4.30-5.70) L 08/27/16 06:06 Hgb 8.9 gm/dL (13.2-17.3) L 08/27/16 06:06 Hct 26.4 % (39.0-49.0) L 08/27/16 06:06 MCV 89.5 fl (80-99) 08/27/16 06:06 MCH 30.3 pg (26.0-30.0) H 08/27/16 06:06 MCHC Differential 33.9 pg (28.0-36.0) 08/27/16 06:06 RDW 13.7 % (11.5-20.0) 08/27/16 06:06 Plt Count 332 Th/cmm (150-400) 08/27/16 06:06 MPV 7.3 fl 08/27/16 06:06 Neutrophils % 83.4 % (40.0-80.0) H 08/27/16 06:06 Band Neutrophils % 1 % (0-10) 08/26/16 06:15 Lymphocytes % 7.5 % (20.0-50.0) L 08/27/16 06:06 Monocytes % 6.6 % (2.0-10.0) 08/27/16 06:06 Eosinophils % 1.9 % (0.0-5.0) 08/27/16 06:06 Basophils % 0.6 % (0.0-2.0) 08/27/16 06:06 Neutrophils (Manual) 86 % (40-80) H 08/26/16 06:15 Lymphocytes 6 % (20-50) L 08/26/16 06:15 Monocytes 5 % (2-10) 08/26/16 06:15 Eosinophils 2 % (0-5) 08/26/16 06:15 Basophils 1 % (0-3) 08/25/16 06:40 Platelet Estimate ADEQUATE (NORMAL) 08/26/16 06:15 Platelet Morphology NORMAL (NORMAL) 08/26/16 06:15 Polychromasia 1+ 08/25/16 06:40 Anisocytosis 1+ 08/26/16 06:15 RBC Morph Micro Appear ABNORMAL (NORMAL) 08/26/16 06:15 PT 12.6 SECONDS (9.5-11.5) H 08/26/16 06:15 INR 1.20 (0.5-1.4) 08/26/16 06:15 PTT (Actin FS) 31.1 SECONDS (26.0-38.0) 08/26/16 06:15 Sodium 134 mEq/L (136-145) L 08/27/16 06:06 Potassium 3.9 mEq/L (3.5-5.1) 08/27/16 06:06 Chloride 100 mEq/L (98-107) 08/27/16 06:06 Carbon Dioxide 26.6 mEq/L (21.0-31.0) 08/27/16 06:06 Anion Gap 11.3 (7.0-16.0) 08/27/16 06:06 BUN 18 mg/dL (7-25) 08/27/16 06:06 Creatinine 4.6 mg/dL (0.7-1.3) H* 08/27/16 06:06 Est GFR ( Amer) 16.8 ml/min (>90) 08/27/16 06:06 Est GFR (Non-Af Amer) 13.9 ml/min 08/27/16 06:06 BUN/Creatinine Ratio 3.9 08/27/16 06:06 Glucose 172 mg/dL (70-105) H 08/27/16 06:06 POC Glucose 189 MG/DL (70 - 105) H 08/28/16 06:37 Hemoglobin A1c % 7.8 % (4.0-6.0) H 08/23/16 20:29 Uric Acid 8.5 mg/dL (4.4-7.6) H 08/24/16 06:12 Calcium 9.1 mg/dL (8.6-10.3) 08/27/16 06:06 Phosphorus 5.4 mg/dL (2.5-5.0) H 08/24/16 06:12 Magnesium 2.0 mg/dL (1.9-2.7) 08/24/16 06:12 Total Bilirubin 0.4 mg/dL (0.3-1.0) 08/27/16 06:06 AST 21 U/L (13-39) 08/27/16 06:06 ALT 21 U/L (7-52) 08/27/16 06:06 Alkaline Phosphatase 318 U/L (34-104) H 08/27/16 06:06 Total Protein 6.9 gm/dL (6.0-8.3) 08/27/16 06:06 Albumin 3.1 gm/dL (4.2-5.5) L 08/27/16 06:06 Globulin 3.8 gm/dL 08/27/16 06:06 Albumin/Globulin Ratio 0.8 (1.0-1.8) L 08/27/16 06:06 Triglycerides 90 mg/dL (<150) 08/24/16 06:12 Cholesterol 73 mg/dL (<200) 08/24/16 06:12 LDL Cholesterol Direct 25 mg/dL (75-193) L 08/24/16 06:12 HDL Cholesterol 28 mg/dL (23-92) 08/24/16 06:12 Amylase 14 U/L (29-103) L 08/25/16 06:40 Lipase 20 U/L (11-82) 08/24/16 06:12 Vitamin B12 1646 pg/mL (211-946) H 08/24/16 06:12 Vitamin D 25-Hydroxy 5.9 ng/mL (30.0-100.0) L 08/24/16 06:12 Free T4 0.91 ng/dL (0.82-1.77) 08/24/16 06:12 TSH 0.93 uIU/ml (0.34-5.60) 08/24/16 06:12 Random Vancomycin 26.2 ug/mL (5.0-40.0) 08/25/16 06:40 Hepatitis A IgM Ab Negative (Negative) 08/26/16 06:15 Hep Bs Antigen Negative (Negative) 08/26/16 06:15 Hep B Core IgM Ab Negative (Negative) 08/26/16 06:15 Hepatitis C Antibody <0.1 s/co ratio (0.0-0.9) 08/26/16 06:15 - Physical Exam Vitals and I&O: Vital Signs Temp 97.6 F 08/28/16 04:00 Pulse 76 08/28/16 04:00 Resp 20 08/28/16 04:00 BP 142/64 08/28/16 04:00 Pulse Ox 100 08/28/16 04:00 Intake & Output 08/27/16 08/28/16 08/28/16 18:59 06:59 18:59 Intake Total 100 Balance 100 Intake: Oral 100 Active Medications: Current Medications Acetaminophen (Tylenol) 650 mg PO Q4H PRN PRN Reason: fever Stop: 10/22/16 19:59 Last Admin: 08/27/16 16:45 Dose: 650 mg Calcium Acetate (Phoslo) 667 mg PO TIDWM [facility] Stop: 10/23/16 16:59 Last Admin: 08/28/16 08:45 Dose: 667 mg Epoetin Tejas (Epogen) 10,000 units SUBQ MoWeFr [facility] Stop: 10/23/16 14:14 Last Admin: 08/24/16 16:24 Dose: 10,000 units Hydromorphone HCl (Dilaudid) 1 mg IVP Q4HR PRN PRN Reason: Severe Pain Stop: 10/26/16 19:58 Last Admin: 08/28/16 06:42 Dose: 1 mg Ceftriaxone Sodium 1 gm/ (Sodium Chloride) 50 mls @ 100 mls/hr IV Q24HR [facility] Stop: 10/22/16 20:59 Last Admin: 08/27/16 22:35 Dose: 100 mls/hr Lactated Ringer's (Lactated Ringer) 1,000 mls @ 0 mls/hr IV .Q0M DEB PRN Reason: TKO Stop: 08/28/16 14:59 Insulin Aspart (Novolog Insulin Sliding Scale) 0 units SUBQ ACHS DEB PRN Reason: Protocol Stop: 10/23/16 07:29 Last Admin: 08/28/16 06:41 Dose: Not Given Meperidine HCl (Demerol) 12.5 mg IVP UD PRN PRN Reason: POST-OP PAIN Stop: 08/28/16 14:48 Miscellaneous (Clinical Monitoring) 1 ea MC DAILY PRN PRN Reason: RENAL Stop: 10/23/16 08:19 Miscellaneous (Vancomycin Iv Per Pharmacy) 1 ea PRN PRN PRN Reason: PROTOCOL Stop: 10/23/16 14:11 Ondansetron HCl (Zofran) 4 mg IV Q4H PRN PRN Reason: Nausea / Vomiting Stop: 10/24/16 18:51 Tramadol HCl (Ultram) 50 mg PO Q4HR PRN PRN Reason: Pain (Moderate) Stop: 10/27/16 09:02 Nutritional Asmnt/Malnutr-PDOC - Dietary Evaluation Malnutrition Findings (Please click <Entered> for more info): Nutritional Asmnt/Malnutrition Start: 08/25/16 15: 01 Text: Status: Active Freq: Document 08/25/16 15:01 RADHA (Rec: 08/25/16 15:18 RADHA [id number]) Nutritional Asmnt/Malnutrition Patient General Information Nutritional Screening Consult Diagnosis Sepsis secondary to foot ulcer Pertinent Medical Hx/Surgical Hx DM, HTN, ESRD on HD Subjective Information 60 year old male from home with caregiver. RD consult for chronic wounds. Pt was alert with family at bedside during visit. Avg PO intake 100% of meals. Pt stated good appetite , would like more food. Pt expressed preference for fruits, RD explained consistant carb. RD vriefly discussed CCHO and renal diet. Pt does not wish to go in further detail at this time, stating he has a caregiver and speaks to a dietitian at HD center. Pt report UBW dry weight 88kg/193.6lb, denied recent weight changes. Current Diet Order/ Nutrition Support Renal, [id number] Pertinent Medications Epogen, Novolog, Vancomycin Pertinent Labs 08/23: A1c 7.8H 08/25: creatinine 4.6H, glucose 163H Nutritional Hx/Data Height 1.75 m Height (Calculated Centimeters) 175.3 Current Weight (lbs) 81.647 kg Weight (Calculated Kilograms) 81.6 Weight (Calculated Grams) 22094.6 Usual body Weight (lbs) 194 [place] Body Weight 160 Recent Weight Change No Weight Status Overweight GI Symptoms Skin Integrity/Comment: Filippo 16. Woudn care 08/24: chronic wound on right foot. Current %PO Good (75-100%) Estimated Nutritional Goals Calories/Kcals/Kg IBW 160lb/72.7kg Kcals Calculated 2181-2545kcal (30-35kcal/kg) Protein g/kg: IBW Protein Calculated 102-124g (1.4-1.7g/kg) Fluid: ml Per MD (ERDS on HD) Nutritional Problem 1. Problem Problem Increased kcal and prot needs related to Etiology hypermetabolic state Signs/Symptoms: H&P: sepsis secondary to foot ulcer, ESRD on HD Intervention/Recommendation Comments 1. Recommend [id number] due to pt is in hypermetbaolic state on HD and expressed hunger. Expected Outcomes/Goals Expected Outcomes/Goals 1. PO intake continue to meet at least 75% of estimated nutritional needs. 2. Provided brief edu on current diet, CCHO and renal. Pt does not wish to discuss further in detail as pt has a caregiver and speaks to a dietitan at HD center. RD made sure pt knows RD's availability if he should have any questions.
[2016-08-28 12:11] LABS: % BASOPHILS 1.1 % (0.0-2.0); % EOSINOPHILS 2.3 % (0.0-5.0); % LYMPHOCYTES 12.6 % (20.0-50.0); % MONOCYTES 7.1 % (2.0-10.0); % NEUTROPHILS 76.9 % (40.0-80.0); HEMATOCRIT 25.5 % (39.0-49.0); HEMOGLOBIN 8.7 gm/dL (13.2-17.3); MEAN CELL VOLUME 88.4 fl (80-99); MEAN CORPUSCULAR HEMOGLOBIN 30.2 pg (26.0-30.0); MEAN CORPUSCULAR HGB CONC 34.1 pg (28.0-36.0); NEUTROPHILE ABSOLUTE 6.7 Th/cmm (1.8-8.0); PLATELET COUNT 321 Th/cmm (150-400); RED BLOOD COUNT 2.88 Mil/cmm (4.30-5.70); RED CELL DISTRIBUTION WIDTH 13.8 % (11.5-20.0)
[2016-08-28 12:13] LABS: WHITE BLOOD COUNT 8.7 Th/cmm (4.8-10.8)
[2016-08-28 13:05] LABS: CARBON DIOXIDE 27.5 mEq/L (21.0-31.0); CREATININE - SERUM 2.5 mg/dL (0.7-1.3); POTASSIUM SERUM 3.5 mEq/L (3.5-5.1)
[2016-08-28 13:06] LABS: ALB/GLOB RATIO 0.8 (1.0-1.8); BILIRUBIN,TOTAL 0.4 mg/dL (0.3-1.0); CALCIUM SERUM 8.8 mg/dL (8.6-10.3)
[2016-08-28] MEDS: Epoetin Alfa 20000 Units/mL Vial SUBQ SCH (13:23)
--- NOTE | 2016-08-28 13:44 | General Progress Note ---
Subjective - Review of Systems Service Date: 08/28/16 Subjective: alert, pain right foot Objective - Results Result Diagrams: 08/28/16 11:30 08/28/16 11:30 Recent Labs: Laboratory Last Values WBC 8.7 Th/cmm (4.8-10.8) D 08/28/16 11:30 RBC 2.88 Mil/cmm (4.30-5.70) L 08/28/16 11:30 Hgb 8.7 gm/dL (13.2-17.3) L 08/28/16 11:30 Hct 25.5 % (39.0-49.0) L 08/28/16 11:30 MCV 88.4 fl (80-99) 08/28/16 11:30 MCH 30.2 pg (26.0-30.0) H 08/28/16 11:30 MCHC Differential 34.1 pg (28.0-36.0) 08/28/16 11:30 RDW 13.8 % (11.5-20.0) 08/28/16 11:30 Plt Count 321 Th/cmm (150-400) 08/28/16 11:30 MPV 7.0 fl 08/28/16 11:30 Neutrophils % 76.9 % (40.0-80.0) 08/28/16 11:30 Band Neutrophils % 1 % (0-10) 08/26/16 06:15 Lymphocytes % 12.6 % (20.0-50.0) L 08/28/16 11:30 Monocytes % 7.1 % (2.0-10.0) 08/28/16 11:30 Eosinophils % 2.3 % (0.0-5.0) 08/28/16 11:30 Basophils % 1.1 % (0.0-2.0) 08/28/16 11:30 Neutrophils (Manual) 86 % (40-80) H 08/26/16 06:15 Lymphocytes 6 % (20-50) L 08/26/16 06:15 Monocytes 5 % (2-10) 08/26/16 06:15 Eosinophils 2 % (0-5) 08/26/16 06:15 Basophils 1 % (0-3) 08/25/16 06:40 Platelet Estimate ADEQUATE (NORMAL) 08/26/16 06:15 Platelet Morphology NORMAL (NORMAL) 08/26/16 06:15 Polychromasia 1+ 08/25/16 06:40 Anisocytosis 1+ 08/26/16 06:15 RBC Morph Micro Appear ABNORMAL (NORMAL) 08/26/16 06:15 PT 12.6 SECONDS (9.5-11.5) H 08/26/16 06:15 INR 1.20 (0.5-1.4) 08/26/16 06:15 PTT (Actin FS) 31.1 SECONDS (26.0-38.0) 08/26/16 06:15 Sodium 134 mEq/L (136-145) L 08/28/16 11:30 Potassium 3.5 mEq/L (3.5-5.1) 08/28/16 11:30 Chloride 101 mEq/L (98-107) 08/28/16 11:30 Carbon Dioxide 27.5 mEq/L (21.0-31.0) 08/28/16 11:30 Anion Gap 9.0 (7.0-16.0) 08/28/16 11:30 BUN 10 mg/dL (7-25) 08/28/16 11:30 Creatinine 2.5 mg/dL (0.7-1.3) H 08/28/16 11:30 Est GFR ( Amer) 34.0 ml/min (>90) 08/28/16 11:30 Est GFR (Non-Af Amer) 28.1 ml/min 08/28/16 11:30 BUN/Creatinine Ratio 4.0 08/28/16 11:30 Glucose 203 mg/dL (70-105) H 08/28/16 11:30 POC Glucose 196 MG/DL (70 - 105) H 08/28/16 11:26 Hemoglobin A1c % 7.8 % (4.0-6.0) H 08/23/16 20:29 Uric Acid 8.5 mg/dL (4.4-7.6) H 08/24/16 06:12 Calcium 8.8 mg/dL (8.6-10.3) 08/28/16 11:30 Phosphorus 5.4 mg/dL (2.5-5.0) H 08/24/16 06:12 Magnesium 2.0 mg/dL (1.9-2.7) 08/24/16 06:12 Total Bilirubin 0.4 mg/dL (0.3-1.0) 08/28/16 11:30 AST 17 U/L (13-39) 08/28/16 11:30 ALT 15 U/L (7-52) 08/28/16 11:30 Alkaline Phosphatase 264 U/L (34-104) H 08/28/16 11:30 Total Protein 6.2 gm/dL (6.0-8.3) 08/28/16 11:30 Albumin 2.8 gm/dL (4.2-5.5) L 08/28/16 11:30 Globulin 3.4 gm/dL 08/28/16 11:30 Albumin/Globulin Ratio 0.8 (1.0-1.8) L 08/28/16 11:30 Triglycerides 90 mg/dL (<150) 08/24/16 06:12 Cholesterol 73 mg/dL (<200) 08/24/16 06:12 LDL Cholesterol Direct 25 mg/dL (75-193) L 08/24/16 06:12 HDL Cholesterol 28 mg/dL (23-92) 08/24/16 06:12 Amylase 14 U/L (29-103) L 08/25/16 06:40 Lipase 20 U/L (11-82) 08/24/16 06:12 Vitamin B12 1646 pg/mL (211-946) H 08/24/16 06:12 Vitamin D 25-Hydroxy 5.9 ng/mL (30.0-100.0) L 08/24/16 06:12 Free T4 0.91 ng/dL (0.82-1.77) 08/24/16 06:12 TSH 0.93 uIU/ml (0.34-5.60) 08/24/16 06:12 Random Vancomycin 6.9 ug/mL (5.0-40.0) 08/28/16 11:30 Hepatitis A IgM Ab Negative (Negative) 08/26/16 06:15 Hep Bs Antigen Negative (Negative) 08/26/16 06:15 Hep B Core IgM Ab Negative (Negative) 08/26/16 06:15 Hepatitis C Antibody <0.1 s/co ratio (0.0-0.9) 08/26/16 06:15 - Physical Exam Vitals and I&O: Vital Signs Temp 98 F 08/28/16 08:00 Pulse 76 08/28/16 08:00 Resp 20 08/28/16 08:00 BP 136/59 08/28/16 08:00 Pulse Ox 96 08/28/16 08:00 Intake & Output 08/27/16 08/28/16 08/28/16 18:59 06:59 18:59 Intake Total 100 240 Output Total 1999 Balance 100 -1760 Intake: Oral 100 240 Output: Hemodialysis 1999 Other: # Bowel Movements 1 Active Medications: Current Medications Acetaminophen (Tylenol) 650 mg PO Q4H PRN PRN Reason: fever Stop: 10/22/16 19:59 Last Admin: 08/28/16 10:22 Dose: 650 mg Calcium Acetate (Phoslo) 667 mg PO TIDWM [facility] Stop: 10/23/16 16:59 Last Admin: 08/28/16 11:31 Dose: 667 mg Epoetin Tejas (Epogen) 10,000 units SUBQ MoWeFr [facility] Stop: 10/23/16 14:14 Last Admin: 08/28/16 13:23 Dose: 10,000 units Hydromorphone HCl (Dilaudid) 1 mg IVP Q4HR PRN PRN Reason: Severe Pain Stop: 10/26/16 19:58 Last Admin: 08/28/16 10:53 Dose: 1 mg Ceftriaxone Sodium 1 gm/ (Sodium Chloride) 50 mls @ 100 mls/hr IV Q24HR DEB Stop: 10/22/16 20:59 Last Admin: 08/27/16 22:35 Dose: 100 mls/hr Lactated Ringer's (Lactated Ringer) 1,000 mls @ 0 mls/hr IV .Q0M DEB PRN Reason: TKO Stop: 08/28/16 14:59 Vancomycin HCl 1 gm/ Sodium (Chloride) 250 mls @ 165 mls/hr IV ONCE ONE Stop: 08/28/16 16:30 Insulin Aspart (Novolog Insulin Sliding Scale) 0 units SUBQ ACHS DEB PRN Reason: Protocol Stop: 10/23/16 07:29 Last Admin: 08/28/16 11:32 Dose: Not Given Meperidine HCl (Demerol) 12.5 mg IVP UD PRN PRN Reason: POST-OP PAIN Stop: 08/28/16 14:48 Miscellaneous (Clinical Monitoring) 1 [facility] DAILY PRN PRN Reason: RENAL Stop: 10/23/16 08:19 Miscellaneous (Vancomycin Iv Per Pharmacy) 1 [facility] PRN PRN PRN Reason: PROTOCOL Stop: 10/23/16 14:11 Ondansetron HCl (Zofran) 4 mg IV Q4H PRN PRN Reason: Nausea / Vomiting Stop: 10/24/16 18:51 Tramadol HCl (Ultram) 50 mg PO Q4HR PRN PRN Reason: Pain (Moderate) Stop: 10/27/16 09:02 General: Alert, Other (right foot pain) HEENT: Atraumatic, Mucous membr. moist/pink Neck: Supple, +2 carotid pulse wo bruit Cardiovascular: Regular rate, Normal S1, Normal S2 Lungs: Clear to auscultation Abdomen: Bowel sounds, Soft Extremities: no Edema Neurological: Sensation intact Skin: no Rash Psych/Mental Status: Mood NL - Procedures Procedures: Procedures Procedure Code Date AMPUTATION THRU METATARSAL 35362 08/23/16 DETACHMENT AT RIGHT FOOT, PARTIAL 1ST RAY, OPEN APPROACH [id number] 08/23/16 DETACHMENT AT RIGHT FOOT, PARTIAL 2ND RAY, OPEN APPROACH [id number] 08/23/16 Assessment/Plan - Assessment Assessment: ESRD on HD Met Enceph 2nd hypolglycemia Sepsis 2nd to Infected, Necrotic right foot ulcer DM2 Ess Htn Anemia of CKD B/L PAD S/P 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 - Plan Plan: Lab - Result Diagrams 08/25/16 06:40 08/25/16 06:40 Current Medications Acetaminophen (Tylenol) 650 mg PO Q4H PRN PRN Reason: fever Stop: 10/22/16 19:59 Last Admin: 08/25/16 00:07 Dose: 650 mg Calcium Acetate (Phoslo) 667 mg PO TIDWM [facility] Stop: 10/23/16 16:59 Last Admin: 08/25/16 16:15 Dose: 667 mg Epoetin Tejas (Epogen) 10,000 units SUBQ MoWeFr [facility] Stop: 10/23/16 14:14 Last Admin: 08/24/16 16:24 Dose: 10,000 units Hydromorphone HCl (Dilaudid) 1 mg IVP Q6HR PRN PRN Reason: Pain (Moderate) Stop: 10/22/16 19:59 Last Admin: 08/25/16 11:50 Dose: 1 mg Ceftriaxone Sodium 1 gm/ (Sodium Chloride) 50 mls @ 100 mls/hr IV Q24HR DEB Stop: 10/22/16 20:59 Last Admin: 08/24/16 20:48 Dose: 100 mls/hr Insulin Aspart (Novolog Insulin Sliding Scale) 0 units SUBQ ACHS DEB PRN Reason: Protocol Stop: 10/23/16 07:29 Last Admin: 08/25/16 11:51 Dose: 1,000 units Miscellaneous (Clinical Monitoring) 1 ea DAILY PRN PRN Reason: RENAL Stop: 10/23/16 08:19 Miscellaneous (Vancomycin Iv Per Pharmacy) 1 ea PRN PRN PRN Reason: PROTOCOL Stop: 10/23/16 14:11 schedule for HD today continue Rocephin Right HODAN 1, Left HODAN 0.8 not indicative of severe PAD Pt. had ray amputation right 1st & 2nd digits w/ wound vac possible proximal amputation of right foot Nutritional Asmnt/Malnutr-PDOC - Dietary Evaluation Malnutrition Findings (Please click <Entered> for more info): Nutritional Asmnt/Malnutrition Start: 08/25/16 15: 01 Text: Status: Active Freq: Document 08/25/16 15:01 GSUN (Rec: 08/25/16 15:18 GSTRES [id number]) Nutritional Asmnt/Malnutrition Patient General Information Nutritional Screening Consult Diagnosis Sepsis secondary to foot ulcer Pertinent Medical Hx/Surgical Hx DM, HTN, ESRD on HD Subjective Information 60 year old male from home with caregiver. RD consult for chronic wounds. Pt was alert with family at bedside during visit. Avg PO intake 100% of meals. Pt stated good appetite , would like more food. Pt expressed preference for fruits, RD explained consistant carb. RD vriefly discussed CCHO and renal diet. Pt does not wish to go in further detail at this time, stating he has a caregiver and speaks to a dietitian at HD center. Pt report UBW dry weight 88kg/193.6lb, denied recent weight changes. Current Diet Order/ Nutrition Support Renal, [id number] Pertinent Medications Epogen, Novolog, Vancomycin Pertinent Labs 08/23: A1c 7.8H 08/25: creatinine 4.6H, glucose 163H Nutritional Hx/Data Height 1.75 m Height (Calculated Centimeters) 175.3 Current Weight (lbs) 81.647 kg Weight (Calculated Kilograms) 81.6 Weight (Calculated Grams) 68707.6 Usual body Weight (lbs) 194 [place] Body Weight 160 Recent Weight Change No Weight Status Overweight GI Symptoms Skin Integrity/Comment: Filippo 16. Woudn care 08/24: chronic wound on right foot. Current %PO Good (75-100%) Estimated Nutritional Goals Calories/Kcals/Kg IBW 160lb/72.7kg Kcals Calculated 2181-2545kcal (30-35kcal/kg) Protein g/kg: IBW Protein Calculated 102-124g (1.4-1.7g/kg) Fluid: ml Per MD (ERDS on HD) Nutritional Problem 1. Problem Problem Increased kcal and prot needs related to Etiology hypermetabolic state Signs/Symptoms: H&P: sepsis secondary to foot ulcer, ESRD on HD Intervention/Recommendation Comments 1. Recommend [id number] due to pt is in hypermetbaolic state on HD and expressed hunger. Expected Outcomes/Goals Expected Outcomes/Goals 1. PO intake continue to meet at least 75% of estimated nutritional needs. 2. Provided brief edu on current diet, CCHO and renal. Pt does not wish to discuss further in detail as pt has a caregiver and speaks to a dietitan at HD center. RD made sure pt knows RD's availability if he should have any questions.
[2016-08-28 15:48] LABS: URINE BILIRUBIN NEGATIVE (NEGATIVE); URINE BLOOD TRACE (NEGATIVE); URINE COLOR YELLOW; URINE GLUCOSE (UA) 250 mg/dL (NEGATIVE); URINE KETONE TRACE mg/dL (NEGATIVE); URINE PH 8.5; URINE PROTEIN >300 mg/dL (NEGATIVE); URINE UROBILINOGEN 0.2 E.U./dL (0.2 - 1.0)
[2016-08-28 15:50] LABS: URINE BACTERIA OCCASIONAL /hpf (NONE SEEN); URINE EPITHELIAL CELLS RARE /lpf (FEW); URINE RBC 0-2 /hpf (0-5)
[2016-08-28] MEDS: cefTRIAXone 1 GM in Sodium Chloride 0.9% 50 ML IV SCH (21:57)
[2016-08-29] MEDS: INSULIN ASPART SLIDING SCALE 100 UNITS/ML UNIT SUBQ SCH ×5 (06:43→21:48)
[2016-08-29] MEDS: HYDROmorphone 1 mg/mL 1mL Syr IVP PRN ×3 (06:49→17:21)
[2016-08-29] MEDS: INSULIN 70/30 100 UNITS/ML SUBQ SCH (06:50)
[2016-08-29 07:13] LABS: MEAN PLATELET VOLUME 7.1 fl; PLATELET COUNT 296 Th/cmm (150-400)
[2016-08-29 07:23] LABS: ALB/GLOB RATIO 0.8 (1.0-1.8); ANION GAP 10.9 (7.0-16.0); BILIRUBIN,TOTAL 0.3 mg/dL (0.3-1.0); CALCIUM SERUM 8.4 mg/dL (8.6-10.3); CARBON DIOXIDE 26.9 mEq/L (21.0-31.0); POTASSIUM SERUM 3.8 mEq/L (3.5-5.1)
[2016-08-29 07:32] LABS: % EOSINOPHILS 1.8 % (0.0-5.0); % LYMPHOCYTES 13.2 % (20.0-50.0); % MONOCYTES 7.7 % (2.0-10.0); % NEUTROPHILS 77.3 % (40.0-80.0); HEMATOCRIT 26.6 % (39.0-49.0); HEMOGLOBIN 8.9 gm/dL (13.2-17.3); MEAN CELL VOLUME 89.1 fl (80-99); MEAN CORPUSCULAR HEMOGLOBIN 29.8 pg (26.0-30.0); MEAN CORPUSCULAR HGB CONC 33.4 pg (28.0-36.0); NEUTROPHILE ABSOLUTE 7.5 Th/cmm (1.8-8.0); RED BLOOD COUNT 2.99 Mil/cmm (4.30-5.70); RED CELL DISTRIBUTION WIDTH 14.1 % (11.5-20.0); WHITE BLOOD COUNT 9.8 Th/cmm (4.8-10.8)
[2016-08-29 07:56] LABS: CREATININE - SERUM 4.5 mg/dL (0.7-1.3)
--- NOTE | 2016-08-29 09:29 | General Progress Note ---
Subjective - Review of Systems Service Date: 08/28/16 Subjective: I have pain. Objective - Results Result Diagrams: 08/29/16 06:26 08/29/16 06:26 Recent Labs: Laboratory Last Values WBC 9.8 Th/cmm (4.8-10.8) 08/29/16 06:26 RBC 2.99 Mil/cmm (4.30-5.70) L 08/29/16 06:26 Hgb 8.9 gm/dL (13.2-17.3) L 08/29/16 06:26 Hct 26.6 % (39.0-49.0) L 08/29/16 06:26 MCV 89.1 fl (80-99) 08/29/16 06:26 MCH 29.8 pg (26.0-30.0) 08/29/16 06:26 MCHC Differential 33.4 pg (28.0-36.0) 08/29/16 06:26 RDW 14.1 % (11.5-20.0) 08/29/16 06:26 Plt Count 296 Th/cmm (150-400) 08/29/16 06:26 MPV 7.1 fl 08/29/16 06:26 Neutrophils % 77.3 % (40.0-80.0) 08/29/16 06:26 Band Neutrophils % 1 % (0-10) 08/26/16 06:15 Lymphocytes % 13.2 % (20.0-50.0) L 08/29/16 06:26 Monocytes % 7.7 % (2.0-10.0) 08/29/16 06:26 Eosinophils % 1.8 % (0.0-5.0) 08/29/16 06:26 Basophils % 0.0 % (0.0-2.0) 08/29/16 06:26 Neutrophils (Manual) 86 % (40-80) H 08/26/16 06:15 Lymphocytes 6 % (20-50) L 08/26/16 06:15 Monocytes 5 % (2-10) 08/26/16 06:15 Eosinophils 2 % (0-5) 08/26/16 06:15 Basophils 1 % (0-3) 08/25/16 06:40 Platelet Estimate ADEQUATE (NORMAL) 08/26/16 06:15 Platelet Morphology NORMAL (NORMAL) 08/26/16 06:15 Polychromasia 1+ 08/25/16 06:40 Anisocytosis 1+ 08/26/16 06:15 RBC Morph Micro Appear ABNORMAL (NORMAL) 08/26/16 06:15 PT 12.6 SECONDS (9.5-11.5) H 08/26/16 06:15 INR 1.20 (0.5-1.4) 08/26/16 06:15 PTT (Actin FS) 31.1 SECONDS (26.0-38.0) 08/26/16 06:15 Sodium 135 mEq/L (136-145) L 08/29/16 06:26 Potassium 3.8 mEq/L (3.5-5.1) 08/29/16 06:26 Chloride 101 mEq/L (98-107) 08/29/16 06:26 Carbon Dioxide 26.9 mEq/L (21.0-31.0) 08/29/16 06:26 Anion Gap 10.9 (7.0-16.0) 08/29/16 06:26 BUN 18 mg/dL (7-25) 08/29/16 06:26 Creatinine 4.5 mg/dL (0.7-1.3) H* 08/29/16 06:26 Est GFR ( Amer) 17.3 ml/min (>90) 08/29/16 06:26 Est GFR (Non-Af Amer) 14.3 ml/min 08/29/16 06:26 BUN/Creatinine Ratio 4.0 08/29/16 06:26 Glucose 254 mg/dL (70-105) H 08/29/16 06:26 POC Glucose 226 MG/DL (70 - 105) H 08/29/16 06:46 Hemoglobin A1c % 7.8 % (4.0-6.0) H 08/23/16 20:29 Uric Acid 8.5 mg/dL (4.4-7.6) H 08/24/16 06:12 Calcium 8.4 mg/dL (8.6-10.3) L 08/29/16 06:26 Phosphorus 5.4 mg/dL (2.5-5.0) H 08/24/16 06:12 Magnesium 2.0 mg/dL (1.9-2.7) 08/24/16 06:12 Total Bilirubin 0.3 mg/dL (0.3-1.0) 08/29/16 06:26 AST 19 U/L (13-39) 08/29/16 06:26 ALT 17 U/L (7-52) 08/29/16 06:26 Alkaline Phosphatase 254 U/L (34-104) H 08/29/16 06:26 Total Protein 6.1 gm/dL (6.0-8.3) 08/29/16 06:26 Albumin 2.7 gm/dL (4.2-5.5) L 08/29/16 06:26 Globulin 3.4 gm/dL 08/29/16 06:26 Albumin/Globulin Ratio 0.8 (1.0-1.8) L 08/29/16 06:26 Triglycerides 90 mg/dL (<150) 08/24/16 06:12 Cholesterol 73 mg/dL (<200) 08/24/16 06:12 LDL Cholesterol Direct 25 mg/dL (75-193) L 08/24/16 06:12 HDL Cholesterol 28 mg/dL (23-92) 08/24/16 06:12 Amylase 14 U/L (29-103) L 08/25/16 06:40 Lipase 20 U/L (11-82) 08/24/16 06:12 Vitamin B12 1646 pg/mL (211-946) H 08/24/16 06:12 Vitamin D 25-Hydroxy 5.9 ng/mL (30.0-100.0) L 08/24/16 06:12 Free T4 0.91 ng/dL (0.82-1.77) 08/24/16 06:12 TSH 0.93 uIU/ml (0.34-5.60) 08/24/16 06:12 Urine Source CLEAN C 08/28/16 15:25 Urine Color YELLOW 08/28/16 15:25 Urine Clarity CLEAR (CLEAR) 08/28/16 15:25 Urine pH 8.5 08/28/16 15:25 Ur Specific [place] 1.020 (1.005-1.030) 08/28/16 15:25 Urine Protein >300 mg/dL (NEGATIVE) H 08/28/16 15:25 Urine Glucose (UA) 250 mg/dL (NEGATIVE) H 08/28/16 15:25 Urine Ketones TRACE mg/dL (NEGATIVE) 08/28/16 15:25 Urine Blood TRACE (NEGATIVE) 08/28/16 15:25 Urine Nitrate NEGATIVE (NEGATIVE) 08/28/16 15:25 Urine Bilirubin NEGATIVE (NEGATIVE) 08/28/16 15:25 Urine Urobilinogen 0.2 E.U./dL (0.2 - 1.0) 08/28/16 15:25 Ur Leukocyte Esterase NEGATIVE (NEGATIVE) 08/28/16 15:25 Urine RBC 0-2 /hpf (0-5) H 08/28/16 15:25 Urine WBC 2-5 /hpf (0-5) H 08/28/16 15:25 Ur Epithelial Cells RARE /lpf (FEW) 08/28/16 15:25 Urine Bacteria OCCASIONAL /hpf (NONE SEEN) 08/28/16 15:25 Random Vancomycin 6.9 ug/mL (5.0-40.0) 08/28/16 11:30 Hepatitis A IgM Ab Negative (Negative) 08/26/16 06:15 Hep Bs Antigen Negative (Negative) 08/26/16 06:15 Hep B Core IgM Ab Negative (Negative) 08/26/16 06:15 Hepatitis C Antibody <0.1 s/co ratio (0.0-0.9) 08/26/16 06:15 - Physical Exam Vitals and I&O: Vital Signs Temp 97.5 F 08/29/16 08:11 Pulse 69 08/29/16 08:11 Resp 20 08/29/16 08:11 BP 135/79 08/29/16 08:11 Pulse Ox 99 08/29/16 08:11 Intake & Output 08/28/16 08/29/16 08/29/16 18:59 06:59 18:59 Intake Total 240 200 Output Total 1999 Balance -1760 200 Weight (lbs) 80.059 kg Intake: Oral 240 200 Output: Hemodialysis 1999 Other: # Voids 0 # Bowel Movements 1 0 Active Medications: Current Medications Acetaminophen (Tylenol) 650 mg PO Q4H PRN PRN Reason: fever Stop: 10/22/16 19:59 Last Admin: 08/28/16 10:22 Dose: 650 mg Calcium Acetate (Phoslo) 667 mg PO TIDWM DEB Stop: 10/23/16 16:59 Last Admin: 08/29/16 08:47 Dose: 667 mg Epoetin Tejas (Epogen) 10,000 units SUBQ MoWeFr DEB Stop: 10/23/16 14:14 Last Admin: 08/28/16 13:23 Dose: 10,000 units Hydromorphone HCl (Dilaudid) 1 mg IVP Q4HR PRN PRN Reason: Severe Pain Stop: 10/26/16 19:58 Last Admin: 08/29/16 06:49 Dose: 1 mg Insulin Aspart (Novolog Insulin Sliding Scale) 0 units SUBQ ACHS DEB PRN Reason: Protocol Stop: 10/23/16 07:29 Last Admin: 08/29/16 06:50 Dose: 2 units Insulin Human Isoph/Insulin Regular (Novolin 70/30) 6 units SUBQ QDAC DEB PRN Reason: Protocol Stop: 10/28/16 07:29 Last Admin: 08/29/16 06:50 Dose: 6 units Miscellaneous (Clinical Monitoring) 1 [facility] DAILY PRN PRN Reason: RENAL Stop: 10/23/16 08:19 Miscellaneous (Vancomycin Iv Per Pharmacy) 1 ea PRN PRN PRN Reason: PROTOCOL Stop: 10/23/16 14:11 Ondansetron HCl (Zofran) 4 mg IV Q4H PRN PRN Reason: Nausea / Vomiting Stop: 10/24/16 18:51 Tramadol HCl (Ultram) 50 mg PO Q4HR PRN PRN Reason: Pain (Moderate) Stop: 10/27/16 09:02 Last Admin: 08/28/16 21:47 Dose: 50 mg General: Alert, Oriented x3, Cooperative, No acute distress HEENT: Atraumatic Neck: Supple Cardiovascular: Regular rate Lungs: Clear to auscultation Abdomen: Bowel sounds, Soft Extremities: Other (Amputation of 1st and secong toe of right leg, wound with suction ) Neurological: Other (Non ambulatory at this moment) Skin: Other (Warm and dry), no Rash Psych/Mental Status: Mental status NL - Procedures Procedures: Procedures Procedure Code Date AMPUTATION THRU METATARSAL 18666 08/23/16 DETACHMENT AT RIGHT FOOT, PARTIAL 1ST RAY, OPEN APPROACH [id number] 08/23/16 DETACHMENT AT RIGHT FOOT, PARTIAL 2ND RAY, OPEN APPROACH [id number] 08/23/16 Assessment/Plan - Assessment Assessment: Patient is awake, alert, calm, in some distress due to pain. Dx: Sepsis to Diabetic ulcer, DM, HTN, ESRD on HD. - Plan Plan: Patient in Rocephin, IV NS. Surgery was done. Amputation of first and second toe were amputated. Will continue to monitor. Nutritional Asmnt/Malnutr-PDOC - Dietary Evaluation Malnutrition Findings (Please click <Entered> for more info): Nutritional Asmnt/Malnutrition Start: 08/25/16 15: 01 Text: Status: Active Freq: Document 08/25/16 15:01 GSUN (Rec: 08/25/16 15:18 GSUN [id number]) Nutritional Asmnt/Malnutrition Patient General Information Nutritional Screening Consult Diagnosis Sepsis secondary to foot ulcer Pertinent Medical Hx/Surgical Hx DM, HTN, ESRD on HD Subjective Information 60 year old male from home with caregiver. RD consult for chronic wounds. Pt was alert with family at bedside during visit. Avg PO intake 100% of meals. Pt stated good appetite , would like more food. Pt expressed preference for fruits, RD explained consistant carb. RD vriefly discussed CCHO and renal diet. Pt does not wish to go in further detail at this time, stating he has a caregiver and speaks to a dietitian at HD center. Pt report UBW dry weight 88kg/193.6lb, denied recent weight changes. Current Diet Order/ Nutrition Support Renal, [id number] Pertinent Medications Epogen, Novolog, Vancomycin Pertinent Labs 08/23: A1c 7.8H 08/25: creatinine 4.6H, glucose 163H Nutritional Hx/Data Height 1.75 m Height (Calculated Centimeters) 175.3 Current Weight (lbs) 81.647 kg Weight (Calculated Kilograms) 81.6 Weight (Calculated Grams) 36332.6 Usual body Weight (lbs) 194 [place] Body Weight 160 Recent Weight Change No Weight Status Overweight GI Symptoms Skin Integrity/Comment: Filippo Gonzalez. Woudn care 08/24: chronic wound on right foot. Current %PO Good (75-100%) Estimated Nutritional Goals Calories/Kcals/Kg IBW 160lb/72.7kg Kcals Calculated 2181-2545kcal (30-35kcal/kg) Protein g/kg: IBW Protein Calculated 102-124g (1.4-1.7g/kg) Fluid: ml Per MD (ERDS on HD) Nutritional Problem 1. Problem Problem Increased kcal and prot needs related to Etiology hypermetabolic state Signs/Symptoms: H&P: sepsis secondary to foot ulcer, ESRD on HD Intervention/Recommendation Comments 1. Recommend [id number] due to pt is in hypermetbaolic state on HD and expressed hunger. Expected Outcomes/Goals Expected Outcomes/Goals 1. PO intake continue to meet at least 75% of estimated nutritional needs. 2. Provided brief edu on current diet, CCHO and renal. Pt does not wish to discuss further in detail as pt has a caregiver and speaks to a dietitan at HD center. RD made sure pt knows RD's availability if he should have any questions.
--- NOTE | 2016-08-29 09:57 | General Progress Note ---
Subjective - Review of Systems Service Date: 08/29/16 Events since last encounter: discussed transmetatarsal amputation with patient, Dr. Victoria at bedside patient in agreement Objective - Results Result Diagrams: 08/29/16 06:26 08/29/16 06:26 Recent Labs: Laboratory Last Values WBC 9.8 Th/cmm (4.8-10.8) 08/29/16 06:26 RBC 2.99 Mil/cmm (4.30-5.70) L 08/29/16 06:26 Hgb 8.9 gm/dL (13.2-17.3) L 08/29/16 06:26 Hct 26.6 % (39.0-49.0) L 08/29/16 06:26 MCV 89.1 fl (80-99) 08/29/16 06:26 MCH 29.8 pg (26.0-30.0) 08/29/16 06:26 MCHC Differential 33.4 pg (28.0-36.0) 08/29/16 06:26 RDW 14.1 % (11.5-20.0) 08/29/16 06:26 Plt Count 296 Th/cmm (150-400) 08/29/16 06:26 MPV 7.1 fl 08/29/16 06:26 Neutrophils % 77.3 % (40.0-80.0) 08/29/16 06:26 Band Neutrophils % 1 % (0-10) 08/26/16 06:15 Lymphocytes % 13.2 % (20.0-50.0) L 08/29/16 06:26 Monocytes % 7.7 % (2.0-10.0) 08/29/16 06:26 Eosinophils % 1.8 % (0.0-5.0) 08/29/16 06:26 Basophils % 0.0 % (0.0-2.0) 08/29/16 06:26 Neutrophils (Manual) 86 % (40-80) H 08/26/16 06:15 Lymphocytes 6 % (20-50) L 08/26/16 06:15 Monocytes 5 % (2-10) 08/26/16 06:15 Eosinophils 2 % (0-5) 08/26/16 06:15 Basophils 1 % (0-3) 08/25/16 06:40 Platelet Estimate ADEQUATE (NORMAL) 08/26/16 06:15 Platelet Morphology NORMAL (NORMAL) 08/26/16 06:15 Polychromasia 1+ 08/25/16 06:40 Anisocytosis 1+ 08/26/16 06:15 RBC Morph Micro Appear ABNORMAL (NORMAL) 08/26/16 06:15 PT 12.6 SECONDS (9.5-11.5) H 08/26/16 06:15 INR 1.20 (0.5-1.4) 08/26/16 06:15 PTT (Actin FS) 31.1 SECONDS (26.0-38.0) 08/26/16 06:15 Sodium 135 mEq/L (136-145) L 08/29/16 06:26 Potassium 3.8 mEq/L (3.5-5.1) 08/29/16 06:26 Chloride 101 mEq/L (98-107) 08/29/16 06:26 Carbon Dioxide 26.9 mEq/L (21.0-31.0) 08/29/16 06:26 Anion Gap 10.9 (7.0-16.0) 08/29/16 06:26 BUN 18 mg/dL (7-25) 08/29/16 06:26 Creatinine 4.5 mg/dL (0.7-1.3) H* 08/29/16 06:26 Est GFR ( Amer) 17.3 ml/min (>90) 08/29/16 06:26 Est GFR (Non-Af Amer) 14.3 ml/min 08/29/16 06:26 BUN/Creatinine Ratio 4.0 08/29/16 06:26 Glucose 254 mg/dL (70-105) H 08/29/16 06:26 POC Glucose 226 MG/DL (70 - 105) H 08/29/16 06:46 Hemoglobin A1c % 7.8 % (4.0-6.0) H 08/23/16 20:29 Uric Acid 8.5 mg/dL (4.4-7.6) H 08/24/16 06:12 Calcium 8.4 mg/dL (8.6-10.3) L 08/29/16 06:26 Phosphorus 5.4 mg/dL (2.5-5.0) H 08/24/16 06:12 Magnesium 2.0 mg/dL (1.9-2.7) 08/24/16 06:12 Total Bilirubin 0.3 mg/dL (0.3-1.0) 08/29/16 06:26 AST 19 U/L (13-39) 08/29/16 06:26 ALT 17 U/L (7-52) 08/29/16 06:26 Alkaline Phosphatase 254 U/L (34-104) H 08/29/16 06:26 Total Protein 6.1 gm/dL (6.0-8.3) 08/29/16 06:26 Albumin 2.7 gm/dL (4.2-5.5) L 08/29/16 06:26 Globulin 3.4 gm/dL 08/29/16 06:26 Albumin/Globulin Ratio 0.8 (1.0-1.8) L 08/29/16 06:26 Triglycerides 90 mg/dL (<150) 08/24/16 06:12 Cholesterol 73 mg/dL (<200) 08/24/16 06:12 LDL Cholesterol Direct 25 mg/dL (75-193) L 08/24/16 06:12 HDL Cholesterol 28 mg/dL (23-92) 08/24/16 06:12 Amylase 14 U/L (29-103) L 08/25/16 06:40 Lipase 20 U/L (11-82) 08/24/16 06:12 Vitamin B12 1646 pg/mL (211-946) H 08/24/16 06:12 Vitamin D 25-Hydroxy 5.9 ng/mL (30.0-100.0) L 08/24/16 06:12 Free T4 0.91 ng/dL (0.82-1.77) 08/24/16 06:12 TSH 0.93 uIU/ml (0.34-5.60) 08/24/16 06:12 Urine Source CLEAN C 08/28/16 15:25 Urine Color YELLOW 08/28/16 15:25 Urine Clarity CLEAR (CLEAR) 08/28/16 15:25 Urine pH 8.5 08/28/16 15:25 Ur Specific [place] 1.020 (1.005-1.030) 08/28/16 15:25 Urine Protein >300 mg/dL (NEGATIVE) H 08/28/16 15:25 Urine Glucose (UA) 250 mg/dL (NEGATIVE) H 08/28/16 15:25 Urine Ketones TRACE mg/dL (NEGATIVE) 08/28/16 15:25 Urine Blood TRACE (NEGATIVE) 08/28/16 15:25 Urine Nitrate NEGATIVE (NEGATIVE) 08/28/16 15:25 Urine Bilirubin NEGATIVE (NEGATIVE) 08/28/16 15:25 Urine Urobilinogen 0.2 E.U./dL (0.2 - 1.0) 08/28/16 15:25 Ur Leukocyte Esterase NEGATIVE (NEGATIVE) 08/28/16 15:25 Urine RBC 0-2 /hpf (0-5) H 08/28/16 15:25 Urine WBC 2-5 /hpf (0-5) H 08/28/16 15:25 Ur Epithelial Cells RARE /lpf (FEW) 08/28/16 15:25 Urine Bacteria OCCASIONAL /hpf (NONE SEEN) 08/28/16 15:25 Random Vancomycin 6.9 ug/mL (5.0-40.0) 08/28/16 11:30 Hepatitis A IgM Ab Negative (Negative) 08/26/16 06:15 Hep Bs Antigen Negative (Negative) 08/26/16 06:15 Hep B Core IgM Ab Negative (Negative) 08/26/16 06:15 Hepatitis C Antibody <0.1 s/co ratio (0.0-0.9) 08/26/16 06:15 - Physical Exam Vitals and I&O: Vital Signs Temp 97.5 F 08/29/16 08:11 Pulse 69 08/29/16 08:11 Resp 20 08/29/16 08:11 BP 135/79 08/29/16 08:11 Pulse Ox 99 08/29/16 08:11 Intake & Output 08/28/16 08/29/16 08/29/16 18:59 06:59 18:59 Intake Total 240 200 Output Total 1999 Balance -1760 200 Weight (lbs) 80.059 kg Intake: Oral 240 200 Output: Hemodialysis 1999 Other: # Voids 0 # Bowel Movements 1 0 Active Medications: Current Medications Acetaminophen (Tylenol) 650 mg PO Q4H PRN PRN Reason: fever Stop: 10/22/16 19:59 Last Admin: 08/28/16 10:22 Dose: 650 mg Calcium Acetate (Phoslo) 667 mg PO TIDWM DEB Stop: 10/23/16 16:59 Last Admin: 08/29/16 08:47 Dose: 667 mg Epoetin Tejas (Epogen) 10,000 units SUBQ MoWeFr DEB Stop: 10/23/16 14:14 Last Admin: 08/28/16 13:23 Dose: 10,000 units Hydromorphone HCl (Dilaudid) 1 mg IVP Q4HR PRN PRN Reason: Severe Pain Stop: 10/26/16 19:58 Last Admin: 08/29/16 06:49 Dose: 1 mg Insulin Aspart (Novolog Insulin Sliding Scale) 0 units SUBQ ACHS DEB PRN Reason: Protocol Stop: 10/23/16 07:29 Last Admin: 08/29/16 06:50 Dose: 2 units Insulin Human Isoph/Insulin Regular (Novolin 70/30) 6 units SUBQ QDAC DEB PRN Reason: Protocol Stop: 10/28/16 07:29 Last Admin: 08/29/16 06:50 Dose: 6 units Miscellaneous (Clinical Monitoring) 1 ea DAILY PRN PRN Reason: RENAL Stop: 10/23/16 08:19 Miscellaneous (Vancomycin Iv Per Pharmacy) 1 ea PRN PRN PRN Reason: PROTOCOL Stop: 10/23/16 14:11 Ondansetron HCl (Zofran) 4 mg IV Q4H PRN PRN Reason: Nausea / Vomiting Stop: 10/24/16 18:51 Tramadol HCl (Ultram) 50 mg PO Q4HR PRN PRN Reason: Pain (Moderate) Stop: 10/27/16 09:02 Last Admin: 08/28/16 21:47 Dose: 50 mg - Procedures Procedures: Procedures Procedure Code Date AMPUTATION THRU METATARSAL 03170 08/23/16 DETACHMENT AT RIGHT FOOT, PARTIAL 1ST RAY, OPEN APPROACH [id number] 08/23/16 DETACHMENT AT RIGHT FOOT, PARTIAL 2ND RAY, OPEN APPROACH [id number] 08/23/16 Nutritional Asmnt/Malnutr-PDOC - Dietary Evaluation Malnutrition Findings (Please click <Entered> for more info): Nutritional Asmnt/Malnutrition Start: 08/25/16 15: 01 Text: Status: Active Freq: Document 08/25/16 15:01 GSUN (Rec: 08/25/16 15:18 GSUN [email or web address]) Nutritional Asmnt/Malnutrition Patient General Information Nutritional Screening Consult Diagnosis Sepsis secondary to foot ulcer Pertinent Medical Hx/Surgical Hx DM, HTN, ESRD on HD Subjective Information 60 year old male from home with caregiver. RD consult for chronic wounds. Pt was alert with family at bedside during visit. Avg PO intake 100% of meals. Pt stated good appetite , would like more food. Pt expressed preference for fruits, RD explained consistant carb. RD vriefly discussed CCHO and renal diet. Pt does not wish to go in further detail at this time, stating he has a caregiver and speaks to a dietitian at HD center. Pt report UBW dry weight 88kg/193.6lb, denied recent weight changes. Current Diet Order/ Nutrition Support Renal, [id number] Pertinent Medications Epogen, Novolog, Vancomycin Pertinent Labs 08/23: A1c 7.8H 08/25: creatinine 4.6H, glucose 163H Nutritional Hx/Data Height 1.75 m Height (Calculated Centimeters) 175.3 Current Weight (lbs) 81.647 kg Weight (Calculated Kilograms) 81.6 Weight (Calculated Grams) 91125.6 Usual body Weight (lbs) 194 [place] Body Weight 160 Recent Weight Change No Weight Status Overweight GI Symptoms Skin Integrity/Comment: Filippo 16. Woudn care 08/24: chronic wound on right foot. Current %PO Good (75-100%) Estimated Nutritional Goals Calories/Kcals/Kg IBW 160lb/72.7kg Kcals Calculated 2181-2545kcal (30-35kcal/kg) Protein g/kg: IBW Protein Calculated 102-124g (1.4-1.7g/kg) Fluid: ml Per MD (ERDS on HD) Nutritional Problem 1. Problem Problem Increased kcal and prot needs related to Etiology hypermetabolic state Signs/Symptoms: H&P: sepsis secondary to foot ulcer, ESRD on HD Intervention/Recommendation Comments 1. Recommend [id number] due to pt is in hypermetbaolic state on HD and expressed hunger. Expected Outcomes/Goals Expected Outcomes/Goals 1. PO intake continue to meet at least 75% of estimated nutritional needs. 2. Provided brief edu on current diet, CCHO and renal. Pt does not wish to discuss further in detail as pt has a caregiver and speaks to a dietitan at HD center. RD made sure pt knows RD's availability if he should have any questions.
--- NOTE | 2016-08-29 15:01 | General Progress Note ---
Subjective - Review of Systems Service Date: 08/29/16 Subjective: alert, pain right foot, requesting analgesics Objective - Results Result Diagrams: 08/29/16 06:26 08/29/16 06:26 Recent Labs: Laboratory Last Values WBC 9.8 Th/cmm (4.8-10.8) 08/29/16 06:26 RBC 2.99 Mil/cmm (4.30-5.70) L 08/29/16 06:26 Hgb 8.9 gm/dL (13.2-17.3) L 08/29/16 06:26 Hct 26.6 % (39.0-49.0) L 08/29/16 06:26 MCV 89.1 fl (80-99) 08/29/16 06:26 MCH 29.8 pg (26.0-30.0) 08/29/16 06:26 MCHC Differential 33.4 pg (28.0-36.0) 08/29/16 06:26 RDW 14.1 % (11.5-20.0) 08/29/16 06:26 Plt Count 296 Th/cmm (150-400) 08/29/16 06:26 MPV 7.1 fl 08/29/16 06:26 Neutrophils % 77.3 % (40.0-80.0) 08/29/16 06:26 Band Neutrophils % 1 % (0-10) 08/26/16 06:15 Lymphocytes % 13.2 % (20.0-50.0) L 08/29/16 06:26 Monocytes % 7.7 % (2.0-10.0) 08/29/16 06:26 Eosinophils % 1.8 % (0.0-5.0) 08/29/16 06:26 Basophils % 0.0 % (0.0-2.0) 08/29/16 06:26 Neutrophils (Manual) 86 % (40-80) H 08/26/16 06:15 Lymphocytes 6 % (20-50) L 08/26/16 06:15 Monocytes 5 % (2-10) 08/26/16 06:15 Eosinophils 2 % (0-5) 08/26/16 06:15 Basophils 1 % (0-3) 08/25/16 06:40 Platelet Estimate ADEQUATE (NORMAL) 08/26/16 06:15 Platelet Morphology NORMAL (NORMAL) 08/26/16 06:15 Polychromasia 1+ 08/25/16 06:40 Anisocytosis 1+ 08/26/16 06:15 RBC Morph Micro Appear ABNORMAL (NORMAL) 08/26/16 06:15 PT 12.6 SECONDS (9.5-11.5) H 08/26/16 06:15 INR 1.20 (0.5-1.4) 08/26/16 06:15 PTT (Actin FS) 31.1 SECONDS (26.0-38.0) 08/26/16 06:15 Sodium 135 mEq/L (136-145) L 08/29/16 06:26 Potassium 3.8 mEq/L (3.5-5.1) 08/29/16 06:26 Chloride 101 mEq/L (98-107) 08/29/16 06:26 Carbon Dioxide 26.9 mEq/L (21.0-31.0) 08/29/16 06:26 Anion Gap 10.9 (7.0-16.0) 08/29/16 06:26 BUN 18 mg/dL (7-25) 08/29/16 06:26 Creatinine 4.5 mg/dL (0.7-1.3) H* 08/29/16 06:26 Est GFR ( Amer) 17.3 ml/min (>90) 08/29/16 06:26 Est GFR (Non-Af Amer) 14.3 ml/min 08/29/16 06:26 BUN/Creatinine Ratio 4.0 08/29/16 06:26 Glucose 254 mg/dL (70-105) H 08/29/16 06:26 POC Glucose 134 MG/DL (70 - 105) H 08/29/16 11:26 Hemoglobin A1c % 7.8 % (4.0-6.0) H 08/23/16 20:29 Uric Acid 8.5 mg/dL (4.4-7.6) H 08/24/16 06:12 Calcium 8.4 mg/dL (8.6-10.3) L 08/29/16 06:26 Phosphorus 5.4 mg/dL (2.5-5.0) H 08/24/16 06:12 Magnesium 2.0 mg/dL (1.9-2.7) 08/24/16 06:12 Total Bilirubin 0.3 mg/dL (0.3-1.0) 08/29/16 06:26 AST 19 U/L (13-39) 08/29/16 06:26 ALT 17 U/L (7-52) 08/29/16 06:26 Alkaline Phosphatase 254 U/L (34-104) H 08/29/16 06:26 Total Protein 6.1 gm/dL (6.0-8.3) 08/29/16 06:26 Albumin 2.7 gm/dL (4.2-5.5) L 08/29/16 06:26 Globulin 3.4 gm/dL 08/29/16 06:26 Albumin/Globulin Ratio 0.8 (1.0-1.8) L 08/29/16 06:26 Triglycerides 90 mg/dL (<150) 08/24/16 06:12 Cholesterol 73 mg/dL (<200) 08/24/16 06:12 LDL Cholesterol Direct 25 mg/dL (75-193) L 08/24/16 06:12 HDL Cholesterol 28 mg/dL (23-92) 08/24/16 06:12 Amylase 14 U/L (29-103) L 08/25/16 06:40 Lipase 20 U/L (11-82) 08/24/16 06:12 Vitamin B12 1646 pg/mL (211-946) H 08/24/16 06:12 Vitamin D 25-Hydroxy 5.9 ng/mL (30.0-100.0) L 08/24/16 06:12 Free T4 0.91 ng/dL (0.82-1.77) 08/24/16 06:12 TSH 0.93 uIU/ml (0.34-5.60) 08/24/16 06:12 Urine Source CLEAN C 08/28/16 15:25 Urine Color YELLOW 08/28/16 15:25 Urine Clarity CLEAR (CLEAR) 08/28/16 15:25 Urine pH 8.5 08/28/16 15:25 Ur Specific [place] 1.020 (1.005-1.030) 08/28/16 15:25 Urine Protein >300 mg/dL (NEGATIVE) H 08/28/16 15:25 Urine Glucose (UA) 250 mg/dL (NEGATIVE) H 08/28/16 15:25 Urine Ketones TRACE mg/dL (NEGATIVE) 08/28/16 15:25 Urine Blood TRACE (NEGATIVE) 08/28/16 15:25 Urine Nitrate NEGATIVE (NEGATIVE) 08/28/16 15:25 Urine Bilirubin NEGATIVE (NEGATIVE) 08/28/16 15:25 Urine Urobilinogen 0.2 E.U./dL (0.2 - 1.0) 08/28/16 15:25 Ur Leukocyte Esterase NEGATIVE (NEGATIVE) 08/28/16 15:25 Urine RBC 0-2 /hpf (0-5) H 08/28/16 15:25 Urine WBC 2-5 /hpf (0-5) H 08/28/16 15:25 Ur Epithelial Cells RARE /lpf (FEW) 08/28/16 15:25 Urine Bacteria OCCASIONAL /hpf (NONE SEEN) 08/28/16 15:25 Random Vancomycin 6.9 ug/mL (5.0-40.0) 08/28/16 11:30 Hepatitis A IgM Ab Negative (Negative) 08/26/16 06:15 Hep Bs Antigen Negative (Negative) 08/26/16 06:15 Hep B Core IgM Ab Negative (Negative) 08/26/16 06:15 Hepatitis C Antibody <0.1 s/co ratio (0.0-0.9) 08/26/16 06:15 - Physical Exam Vitals and I&O: Vital Signs Temp 76 F 08/29/16 11:37 Pulse 76 08/29/16 11:37 Resp 19 08/29/16 11:37 BP 160/74 08/29/16 11:37 Pulse Ox 99 08/29/16 11:37 Intake & Output 08/28/16 08/29/16 08/29/16 18:59 06:59 18:59 Intake Total 240 200 Output Total 1999 Balance -1760 200 Weight (lbs) 80.059 kg Intake: Oral 240 200 Output: Hemodialysis 1999 Other: # Voids 0 # Bowel Movements 1 0 Active Medications: Current Medications Acetaminophen (Tylenol) 650 mg PO Q4H PRN PRN Reason: fever Stop: 10/22/16 19:59 Last Admin: 08/28/16 10:22 Dose: 650 mg Calcium Acetate (Phoslo) 667 mg PO TIDWM DEB Stop: 10/23/16 16:59 Last Admin: 08/29/16 12:16 Dose: 667 mg Epoetin Tejas (Epogen) 10,000 units SUBQ MoWeFr DEB Stop: 10/23/16 14:14 Last Admin: 08/28/16 13:23 Dose: 10,000 units Hydromorphone HCl (Dilaudid) 1 mg IVP Q4HR PRN PRN Reason: Severe Pain Stop: 10/26/16 19:58 Last Admin: 08/29/16 12:15 Dose: 1 mg Insulin Aspart (Novolog Insulin Sliding Scale) 0 units SUBQ ACHS DEB PRN Reason: Protocol Stop: 10/23/16 07:29 Last Admin: 08/29/16 12:16 Dose: Not Given Insulin Human Isoph/Insulin Regular (Novolin 70/30) 6 units SUBQ QDAC DEB PRN Reason: Protocol Stop: 10/28/16 07:29 Last Admin: 08/29/16 06:50 Dose: 6 units Miscellaneous (Clinical Monitoring) 1 [facility] DAILY PRN PRN Reason: RENAL Stop: 10/23/16 08:19 Miscellaneous (Vancomycin Iv Per Pharmacy) 1 ea PRN PRN PRN Reason: PROTOCOL Stop: 10/23/16 14:11 Ondansetron HCl (Zofran) 4 mg IV Q4H PRN PRN Reason: Nausea / Vomiting Stop: 10/24/16 18:51 Last Admin: 08/29/16 13:22 Dose: 4 mg Tramadol HCl (Ultram) 50 mg PO Q4HR PRN PRN Reason: Pain (Moderate) Stop: 10/27/16 09:02 Last Admin: 08/28/16 21:47 Dose: 50 mg General: Alert, Moderate distress HEENT: Atraumatic, Mucous membr. moist/pink Neck: Supple, +2 carotid pulse wo bruit Cardiovascular: Regular rate, Normal S1, Normal S2 Lungs: Clear to auscultation, Other Abdomen: Bowel sounds, Soft Extremities: Edema Neurological: Sensation intact Skin: no Rash Psych/Mental Status: Mood NL - Procedures Procedures: Procedures Procedure Code Date AMPUTATION THRU METATARSAL 48042 08/23/16 DETACHMENT AT RIGHT FOOT, PARTIAL 1ST RAY, OPEN APPROACH [id number] 08/23/16 DETACHMENT AT RIGHT FOOT, PARTIAL 2ND RAY, OPEN APPROACH [id number] 08/23/16 Assessment/Plan - Assessment Assessment: ESRD on HD Met Enceph 2nd hypolglycemia Sepsis 2nd to Infected, Necrotic right foot ulcer DM2 Ess Htn Anemia of CKD B/L PAD S/P 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 - Plan Plan: Lab - Result Diagrams 08/25/16 06:40 08/25/16 06:40 Current Medications Acetaminophen (Tylenol) 650 mg PO Q4H PRN PRN Reason: fever Stop: 10/22/16 19:59 Last Admin: 08/25/16 00:07 Dose: 650 mg Calcium Acetate (Phoslo) 667 mg PO TIDWM DEB Stop: 10/23/16 16:59 Last Admin: 08/25/16 16:15 Dose: 667 mg Epoetin Tejas (Epogen) 10,000 units SUBQ MoWeFr DEB Stop: 10/23/16 14:14 Last Admin: 08/24/16 16:24 Dose: 10,000 units Hydromorphone HCl (Dilaudid) 1 mg IVP Q6HR PRN PRN Reason: Pain (Moderate) Stop: 10/22/16 19:59 Last Admin: 08/25/16 11:50 Dose: 1 mg Ceftriaxone Sodium 1 gm/ (Sodium Chloride) 50 mls @ 100 mls/hr IV Q24HR DEB Stop: 10/22/16 20:59 Last Admin: 08/24/16 20:48 Dose: 100 mls/hr Insulin Aspart (Novolog Insulin Sliding Scale) 0 units SUBQ ACHS DEB PRN Reason: Protocol Stop: 10/23/16 07:29 Last Admin: 08/25/16 11:51 Dose: 1,000 units Miscellaneous (Clinical Monitoring) 1 ea [facility] DAILY PRN PRN Reason: RENAL Stop: 10/23/16 08:19 Miscellaneous (Vancomycin Iv Per Pharmacy) 1 ea MC PRN PRN PRN Reason: PROTOCOL Stop: 10/23/16 14:11 dialyzed yesterday & tolerated it well continue Rocephin Right HODAN 1, Left HODAN 0.8 not indicative of severe PAD Pt. had ray amputation right 1st & 2nd digits w/ wound vac possible TMA right foot Nutritional Asmnt/Malnutr-PDOC - Dietary Evaluation Malnutrition Findings (Please click <Entered> for more info): Nutritional Asmnt/Malnutrition Start: 08/25/16 15: 01 Text: Status: Active Freq: Document 08/25/16 15:01 RADHA (Rec: 08/25/16 15:18 [email or web address]) Nutritional Asmnt/Malnutrition Patient General Information Nutritional Screening Consult Diagnosis Sepsis secondary to foot ulcer Pertinent Medical Hx/Surgical Hx DM, HTN, ESRD on HD Subjective Information 60 year old male from home with caregiver. RD consult for chronic wounds. Pt was alert with family at bedside during visit. Avg PO intake 100% of meals. Pt stated good appetite , would like more food. Pt expressed preference for fruits, RD explained consistant carb. RD vriefly discussed CCHO and renal diet. Pt does not wish to go in further detail at this time, stating he has a caregiver and speaks to a dietitian at HD center. Pt report UBW dry weight 88kg/193.6lb, denied recent weight changes. Current Diet Order/ Nutrition Support Renal, [id number] Pertinent Medications Epogen, Novolog, Vancomycin Pertinent Labs 08/23: A1c 7.8H 08/25: creatinine 4.6H, glucose 163H Nutritional Hx/Data Height 1.75 m Height (Calculated Centimeters) 175.3 Current Weight (lbs) 81.647 kg Weight (Calculated Kilograms) 81.6 Weight (Calculated Grams) 78863.6 Usual body Weight (lbs) 194 [place] Body Weight 160 Recent Weight Change No Weight Status Overweight GI Symptoms Skin Integrity/Comment: Filippo Gonzalez. Woudn care 08/24: chronic wound on right foot. Current %PO Good (75-100%) Estimated Nutritional Goals Calories/Kcals/Kg IBW 160lb/72.7kg Kcals Calculated 2181-2545kcal (30-35kcal/kg) Protein g/kg: IBW Protein Calculated 102-124g (1.4-1.7g/kg) Fluid: ml Per MD (ERDS on HD) Nutritional Problem 1. Problem Problem Increased kcal and prot needs related to Etiology hypermetabolic state Signs/Symptoms: H&P: sepsis secondary to foot ulcer, ESRD on HD Intervention/Recommendation Comments 1. Recommend [id number] due to pt is in hypermetbaolic state on HD and expressed hunger. Expected Outcomes/Goals Expected Outcomes/Goals 1. PO intake continue to meet at least 75% of estimated nutritional needs. 2. Provided brief edu on current diet, CCHO and renal. Pt does not wish to discuss further in detail as pt has a caregiver and speaks to a dietitan at HD center. RD made sure pt knows RD's availability if he should have any questions.
[2016-08-30] MEDS: INSULIN 70/30 100 UNITS/ML SUBQ SCH (06:40)
[2016-08-30] MEDS: INSULIN ASPART SLIDING SCALE 100 UNITS/ML UNIT SUBQ SCH ×3 (06:41→22:11)
[2016-08-30 07:17] LABS: % BASOPHILS 1.1 % (0.0-2.0); % EOSINOPHILS 3.1 % (0.0-5.0); % LYMPHOCYTES 13.4 % (20.0-50.0); % MONOCYTES 6.5 % (2.0-10.0); % NEUTROPHILS 75.9 % (40.0-80.0); HEMATOCRIT 27.1 % (39.0-49.0); HEMOGLOBIN 9.1 gm/dL (13.2-17.3); MEAN CELL VOLUME 89.6 fl (80-99); MEAN CORPUSCULAR HEMOGLOBIN 30.1 pg (26.0-30.0); MEAN CORPUSCULAR HGB CONC 33.6 pg (28.0-36.0); MEAN PLATELET VOLUME 6.9 fl; NEUTROPHILE ABSOLUTE 7.9 Th/cmm (1.8-8.0); PLATELET COUNT 301 Th/cmm (150-400); RED BLOOD COUNT 3.02 Mil/cmm (4.30-5.70); WHITE BLOOD COUNT 10.4 Th/cmm (4.8-10.8)
[2016-08-30 07:54] LABS: ALB/GLOB RATIO 0.8 (1.0-1.8); ANION GAP 16.3 (7.0-16.0); BILIRUBIN,TOTAL 0.3 mg/dL (0.3-1.0); BUN/CREATININE RATIO 3.9; CALCIUM SERUM 9.2 mg/dL (8.6-10.3); CARBON DIOXIDE 25.8 mEq/L (21.0-31.0); POTASSIUM SERUM 4.1 mEq/L (3.5-5.1)
[2016-08-30 08:18] LABS: CREATININE - SERUM 5.7 mg/dL (0.7-1.3); VANCOMYCIN RANDOM 18.2 ug/mL (5.0-40.0)
[2016-08-30] MEDS: HYDROmorphone 1 mg/mL 1mL Syr IVP PRN ×2 (09:53→21:49)
--- NOTE | 2016-08-30 09:56 | General Progress Note ---
Subjective - Review of Systems Service Date: 08/30/16 Subjective: I have pain. Objective - Results Result Diagrams: 08/30/16 06:48 08/30/16 06:48 Recent Labs: Laboratory Last Values WBC 10.4 Th/cmm (4.8-10.8) 08/30/16 06:48 RBC 3.02 Mil/cmm (4.30-5.70) L 08/30/16 06:48 Hgb 9.1 gm/dL (13.2-17.3) L 08/30/16 06:48 Hct 27.1 % (39.0-49.0) L 08/30/16 06:48 MCV 89.6 fl (80-99) 08/30/16 06:48 MCH 30.1 pg (26.0-30.0) H 08/30/16 06:48 MCHC Differential 33.6 pg (28.0-36.0) 08/30/16 06:48 RDW 14.0 % (11.5-20.0) 08/30/16 06:48 Plt Count 301 Th/cmm (150-400) 08/30/16 06:48 MPV 6.9 fl 08/30/16 06:48 Neutrophils % 75.9 % (40.0-80.0) 08/30/16 06:48 Band Neutrophils % 1 % (0-10) 08/26/16 06:15 Lymphocytes % 13.4 % (20.0-50.0) L 08/30/16 06:48 Monocytes % 6.5 % (2.0-10.0) 08/30/16 06:48 Eosinophils % 3.1 % (0.0-5.0) 08/30/16 06:48 Basophils % 1.1 % (0.0-2.0) 08/30/16 06:48 Neutrophils (Manual) 86 % (40-80) H 08/26/16 06:15 Lymphocytes 6 % (20-50) L 08/26/16 06:15 Monocytes 5 % (2-10) 08/26/16 06:15 Eosinophils 2 % (0-5) 08/26/16 06:15 Basophils 1 % (0-3) 08/25/16 06:40 Platelet Estimate ADEQUATE (NORMAL) 08/26/16 06:15 Platelet Morphology NORMAL (NORMAL) 08/26/16 06:15 Polychromasia 1+ 08/25/16 06:40 Anisocytosis 1+ 08/26/16 06:15 RBC Morph Micro Appear ABNORMAL (NORMAL) 08/26/16 06:15 PT 12.6 SECONDS (9.5-11.5) H 08/26/16 06:15 INR 1.20 (0.5-1.4) 08/26/16 06:15 PTT (Actin FS) 31.1 SECONDS (26.0-38.0) 08/26/16 06:15 Sodium 138 mEq/L (136-145) 08/30/16 06:48 Potassium 4.1 mEq/L (3.5-5.1) 08/30/16 06:48 Chloride 100 mEq/L (98-107) 08/30/16 06:48 Carbon Dioxide 25.8 mEq/L (21.0-31.0) 08/30/16 06:48 Anion Gap 16.3 (7.0-16.0) H 08/30/16 06:48 BUN 22 mg/dL (7-25) 08/30/16 06:48 Creatinine 5.7 mg/dL (0.7-1.3) H* 08/30/16 06:48 Est GFR ( Amer) 13.2 ml/min (>90) 08/30/16 06:48 Est GFR (Non-Af Amer) 10.9 ml/min 08/30/16 06:48 BUN/Creatinine Ratio 3.9 08/30/16 06:48 Glucose 202 mg/dL (70-105) H 08/30/16 06:48 POC Glucose 168 MG/DL (70 - 105) H 08/30/16 05:36 Hemoglobin A1c % 7.8 % (4.0-6.0) H 08/23/16 20:29 Uric Acid 8.5 mg/dL (4.4-7.6) H 08/24/16 06:12 Calcium 9.2 mg/dL (8.6-10.3) 08/30/16 06:48 Phosphorus 5.4 mg/dL (2.5-5.0) H 08/24/16 06:12 Magnesium 2.0 mg/dL (1.9-2.7) 08/24/16 06:12 Total Bilirubin 0.3 mg/dL (0.3-1.0) 08/30/16 06:48 AST 13 U/L (13-39) 08/30/16 06:48 ALT 13 U/L (7-52) 08/30/16 06:48 Alkaline Phosphatase 239 U/L (34-104) H 08/30/16 06:48 Total Protein 6.4 gm/dL (6.0-8.3) 08/30/16 06:48 Albumin 2.9 gm/dL (4.2-5.5) L 08/30/16 06:48 Globulin 3.5 gm/dL 08/30/16 06:48 Albumin/Globulin Ratio 0.8 (1.0-1.8) L 08/30/16 06:48 Triglycerides 90 mg/dL (<150) 08/24/16 06:12 Cholesterol 73 mg/dL (<200) 08/24/16 06:12 LDL Cholesterol Direct 25 mg/dL (75-193) L 08/24/16 06:12 HDL Cholesterol 28 mg/dL (23-92) 08/24/16 06:12 Amylase 14 U/L (29-103) L 08/25/16 06:40 Lipase 20 U/L (11-82) 08/24/16 06:12 Vitamin B12 1646 pg/mL (211-946) H 08/24/16 06:12 Vitamin D 25-Hydroxy 5.9 ng/mL (30.0-100.0) L 08/24/16 06:12 Free T4 0.91 ng/dL (0.82-1.77) 08/24/16 06:12 TSH 0.93 uIU/ml (0.34-5.60) 08/24/16 06:12 Urine Source CLEAN C 08/28/16 15:25 Urine Color YELLOW 08/28/16 15:25 Urine Clarity CLEAR (CLEAR) 08/28/16 15:25 Urine pH 8.5 08/28/16 15:25 Ur Specific [place] 1.020 (1.005-1.030) 08/28/16 15:25 Urine Protein >300 mg/dL (NEGATIVE) H 08/28/16 15:25 Urine Glucose (UA) 250 mg/dL (NEGATIVE) H 08/28/16 15:25 Urine Ketones TRACE mg/dL (NEGATIVE) 08/28/16 15:25 Urine Blood TRACE (NEGATIVE) 08/28/16 15:25 Urine Nitrate NEGATIVE (NEGATIVE) 08/28/16 15:25 Urine Bilirubin NEGATIVE (NEGATIVE) 08/28/16 15:25 Urine Urobilinogen 0.2 E.U./dL (0.2 - 1.0) 08/28/16 15:25 Ur Leukocyte Esterase NEGATIVE (NEGATIVE) 08/28/16 15:25 Urine RBC 0-2 /hpf (0-5) H 08/28/16 15:25 Urine WBC 2-5 /hpf (0-5) H 08/28/16 15:25 Ur Epithelial Cells RARE /lpf (FEW) 08/28/16 15:25 Urine Bacteria OCCASIONAL /hpf (NONE SEEN) 08/28/16 15:25 Random Vancomycin 18.2 ug/mL (5.0-40.0) 08/30/16 06:48 Hepatitis A IgM Ab Negative (Negative) 08/26/16 06:15 Hep Bs Antigen Negative (Negative) 08/26/16 06:15 Hep B Core IgM Ab Negative (Negative) 08/26/16 06:15 Hepatitis C Antibody <0.1 s/co ratio (0.0-0.9) 08/26/16 06:15 - Physical Exam Vitals and I&O: Vital Signs Temp 97.9 F 08/30/16 04:00 Pulse 80 08/30/16 04:00 Resp 18 08/30/16 04:00 BP 148/70 08/30/16 04:00 Pulse Ox 99 08/30/16 04:00 Intake & Output 08/29/16 08/30/16 08/30/16 18:59 06:59 18:59 Intake Total 600 420 Balance 600 420 Intake: Oral 600 420 Other: # Voids 1 # Bowel Movements 0 Active Medications: Current Medications Acetaminophen (Tylenol) 650 mg PO Q4H PRN PRN Reason: fever Stop: 10/22/16 19:59 Last Admin: 08/28/16 10:22 Dose: 650 mg Calcium Acetate (Phoslo) 667 mg PO TIDWM DEB Stop: 10/23/16 16:59 Last Admin: 08/30/16 08:56 Dose: 667 mg Epoetin Tejas (Epogen) 10,000 units SUBQ MoWeFr DEB Stop: 10/23/16 14:14 Last Admin: 08/28/16 13:23 Dose: 10,000 units Hydromorphone HCl (Dilaudid) 1 mg IVP Q4HR PRN PRN Reason: Severe Pain Stop: 10/26/16 19:58 Last Admin: 08/29/16 17:21 Dose: 1 mg Vancomycin HCl 1.5 gm/ Sodium (Chloride) 500 mls @ 250 mls/hr IV 1000 ONE Stop: 08/30/16 11:59 Insulin Aspart (Novolog Insulin Sliding Scale) 0 units SUBQ ACHS DEB PRN Reason: Protocol Stop: 10/23/16 07:29 Last Admin: 08/30/16 06:41 Dose: Not Given Insulin Human Isoph/Insulin Regular (Novolin 70/30) 6 units SUBQ QDAC DEB PRN Reason: Protocol Stop: 10/28/16 07:29 Last Admin: 08/30/16 06:40 Dose: 6 units Miscellaneous (Clinical Monitoring) 1 [facility] DAILY PRN PRN Reason: RENAL Stop: 10/23/16 08:19 Miscellaneous (Vancomycin Iv Per Pharmacy) 1 [facility] PRN PRN PRN Reason: PROTOCOL Stop: 10/23/16 14:11 Ondansetron HCl (Zofran) 4 mg IV Q4H PRN PRN Reason: Nausea / Vomiting Stop: 10/24/16 18:51 Last Admin: 08/29/16 13:22 Dose: 4 mg Tramadol HCl (Ultram) 50 mg PO Q4HR PRN PRN Reason: Pain (Moderate) Stop: 10/27/16 09:02 Last Admin: 08/30/16 08:58 Dose: 50 mg General: Alert, Oriented x3, Cooperative, No acute distress HEENT: Atraumatic Neck: Supple Lungs: Clear to auscultation Abdomen: Bowel sounds, Soft Extremities: Other (Surgical wound with suction) Neurological: Other (Non ambulatory at this moment) Skin: Other (Warm and dry) Psych/Mental Status: Mental status NL - Procedures Procedures: Procedures Procedure Code Date AMPUTATION THRU METATARSAL 15936 08/23/16 DETACHMENT AT RIGHT FOOT, PARTIAL 1ST RAY, OPEN APPROACH [id number] 08/23/16 DETACHMENT AT RIGHT FOOT, PARTIAL 2ND RAY, OPEN APPROACH [id number] 08/23/16 Assessment/Plan - Assessment Assessment: Patient is awake, alert, calm, in some distress due to pain. Dx: Sepsis to Diabetic ulcer, DM, HTN, ESRD on HD. - Plan Plan: Patient in Rocephin, IV NS. Patient accepted surgical procedure that Dr. Harrington recommended ( amputation of all toes). Surgery will be done tomorrow. Will continue to monitor. Nutritional Asmnt/Malnutr-PDOC - Dietary Evaluation Malnutrition Findings (Please click <Entered> for more info): Nutritional Asmnt/Malnutrition Start: 08/25/16 15: 01 Text: Status: Active Freq: Document 08/25/16 15:01 GSUN (Rec: 08/25/16 15:18 GSUN [email or web address]) Nutritional Asmnt/Malnutrition Patient General Information Nutritional Screening Consult Diagnosis Sepsis secondary to foot ulcer Pertinent Medical Hx/Surgical Hx DM, HTN, ESRD on HD Subjective Information 60 year old male from home with caregiver. RD consult for chronic wounds. Pt was alert with family at bedside during visit. Avg PO intake 100% of meals. Pt stated good appetite , would like more food. Pt expressed preference for fruits, RD explained consistant carb. RD vriefly discussed CCHO and renal diet. Pt does not wish to go in further detail at this time, stating he has a caregiver and speaks to a dietitian at HD center. Pt report UBW dry weight 88kg/193.6lb, denied recent weight changes. Current Diet Order/ Nutrition Support Renal, [id number] Pertinent Medications Epogen, Novolog, Vancomycin Pertinent Labs 08/23: A1c 7.8H 08/25: creatinine 4.6H, glucose 163H Nutritional Hx/Data Height 1.75 m Height (Calculated Centimeters) 175.3 Current Weight (lbs) 81.647 kg Weight (Calculated Kilograms) 81.6 Weight (Calculated Grams) 07315.6 Usual body Weight (lbs) 194 [place] Body Weight 160 Recent Weight Change No Weight Status Overweight GI Symptoms Skin Integrity/Comment: Filippo Gonzalez. Woudn care 08/24: chronic wound on right foot. Current %PO Good (75-100%) Estimated Nutritional Goals Calories/Kcals/Kg IBW 160lb/72.7kg Kcals Calculated 2181-2545kcal (30-35kcal/kg) Protein g/kg: IBW Protein Calculated 102-124g (1.4-1.7g/kg) Fluid: ml Per MD (ERDS on HD) Nutritional Problem 1. Problem Problem Increased kcal and prot needs related to Etiology hypermetabolic state Signs/Symptoms: H&P: sepsis secondary to foot ulcer, ESRD on HD Intervention/Recommendation Comments 1. Recommend [id number] due to pt is in hypermetbaolic state on HD and expressed hunger. Expected Outcomes/Goals Expected Outcomes/Goals 1. PO intake continue to meet at least 75% of estimated nutritional needs. 2. Provided brief edu on current diet, CCHO and renal. Pt does not wish to discuss further in detail as pt has a caregiver and speaks to a dietitan at HD center. RD made sure pt knows RD's availability if he should have any questions.
[2016-08-30] MEDS ORDERED: Vancomycin HCl 1.5 GM in Sodium Chloride 0.9% 500 ML IV ONE (10:00)
--- NOTE | 2016-08-30 14:12 | General Progress Note ---
Subjective - Review of Systems Service Date: 08/30/16 Events since last encounter: Plan:discussed with daughter, will do operations in AM Objective - Results Result Diagrams: 08/30/16 06:48 08/30/16 06:48 Recent Labs: Laboratory Last Values WBC 10.4 Th/cmm (4.8-10.8) 08/30/16 06:48 RBC 3.02 Mil/cmm (4.30-5.70) L 08/30/16 06:48 Hgb 9.1 gm/dL (13.2-17.3) L 08/30/16 06:48 Hct 27.1 % (39.0-49.0) L 08/30/16 06:48 MCV 89.6 fl (80-99) 08/30/16 06:48 MCH 30.1 pg (26.0-30.0) H 08/30/16 06:48 MCHC Differential 33.6 pg (28.0-36.0) 08/30/16 06:48 RDW 14.0 % (11.5-20.0) 08/30/16 06:48 Plt Count 301 Th/cmm (150-400) 08/30/16 06:48 MPV 6.9 fl 08/30/16 06:48 Neutrophils % 75.9 % (40.0-80.0) 08/30/16 06:48 Band Neutrophils % 1 % (0-10) 08/26/16 06:15 Lymphocytes % 13.4 % (20.0-50.0) L 08/30/16 06:48 Monocytes % 6.5 % (2.0-10.0) 08/30/16 06:48 Eosinophils % 3.1 % (0.0-5.0) 08/30/16 06:48 Basophils % 1.1 % (0.0-2.0) 08/30/16 06:48 Neutrophils (Manual) 86 % (40-80) H 08/26/16 06:15 Lymphocytes 6 % (20-50) L 08/26/16 06:15 Monocytes 5 % (2-10) 08/26/16 06:15 Eosinophils 2 % (0-5) 08/26/16 06:15 Basophils 1 % (0-3) 08/25/16 06:40 Platelet Estimate ADEQUATE (NORMAL) 08/26/16 06:15 Platelet Morphology NORMAL (NORMAL) 08/26/16 06:15 Polychromasia 1+ 08/25/16 06:40 Anisocytosis 1+ 08/26/16 06:15 RBC Morph Micro Appear ABNORMAL (NORMAL) 08/26/16 06:15 PT 12.6 SECONDS (9.5-11.5) H 08/26/16 06:15 INR 1.20 (0.5-1.4) 08/26/16 06:15 PTT (Actin FS) 31.1 SECONDS (26.0-38.0) 08/26/16 06:15 Sodium 138 mEq/L (136-145) 08/30/16 06:48 Potassium 4.1 mEq/L (3.5-5.1) 08/30/16 06:48 Chloride 100 mEq/L (98-107) 08/30/16 06:48 Carbon Dioxide 25.8 mEq/L (21.0-31.0) 08/30/16 06:48 Anion Gap 16.3 (7.0-16.0) H 08/30/16 06:48 BUN 22 mg/dL (7-25) 08/30/16 06:48 Creatinine 5.7 mg/dL (0.7-1.3) H* 08/30/16 06:48 Est GFR ( Amer) 13.2 ml/min (>90) 08/30/16 06:48 Est GFR (Non-Af Amer) 10.9 ml/min 08/30/16 06:48 BUN/Creatinine Ratio 3.9 08/30/16 06:48 Glucose 202 mg/dL (70-105) H 08/30/16 06:48 POC Glucose 227 MG/DL (70 - 105) H 08/30/16 11:30 Hemoglobin A1c % 7.8 % (4.0-6.0) H 08/23/16 20:29 Uric Acid 8.5 mg/dL (4.4-7.6) H 08/24/16 06:12 Calcium 9.2 mg/dL (8.6-10.3) 08/30/16 06:48 Phosphorus 5.4 mg/dL (2.5-5.0) H 08/24/16 06:12 Magnesium 2.0 mg/dL (1.9-2.7) 08/24/16 06:12 Total Bilirubin 0.3 mg/dL (0.3-1.0) 08/30/16 06:48 AST 13 U/L (13-39) 08/30/16 06:48 ALT 13 U/L (7-52) 08/30/16 06:48 Alkaline Phosphatase 239 U/L (34-104) H 08/30/16 06:48 Total Protein 6.4 gm/dL (6.0-8.3) 08/30/16 06:48 Albumin 2.9 gm/dL (4.2-5.5) L 08/30/16 06:48 Globulin 3.5 gm/dL 08/30/16 06:48 Albumin/Globulin Ratio 0.8 (1.0-1.8) L 08/30/16 06:48 Triglycerides 90 mg/dL (<150) 08/24/16 06:12 Cholesterol 73 mg/dL (<200) 08/24/16 06:12 LDL Cholesterol Direct 25 mg/dL (75-193) L 08/24/16 06:12 HDL Cholesterol 28 mg/dL (23-92) 08/24/16 06:12 Amylase 14 U/L (29-103) L 08/25/16 06:40 Lipase 20 U/L (11-82) 08/24/16 06:12 Vitamin B12 1646 pg/mL (211-946) H 08/24/16 06:12 Vitamin D 25-Hydroxy 5.9 ng/mL (30.0-100.0) L 08/24/16 06:12 Free T4 0.91 ng/dL (0.82-1.77) 08/24/16 06:12 TSH 0.93 uIU/ml (0.34-5.60) 08/24/16 06:12 Urine Source CLEAN C 08/28/16 15:25 Urine Color YELLOW 08/28/16 15:25 Urine Clarity CLEAR (CLEAR) 08/28/16 15:25 Urine pH 8.5 08/28/16 15:25 Ur Specific [place] 1.020 (1.005-1.030) 08/28/16 15:25 Urine Protein >300 mg/dL (NEGATIVE) H 08/28/16 15:25 Urine Glucose (UA) 250 mg/dL (NEGATIVE) H 08/28/16 15:25 Urine Ketones TRACE mg/dL (NEGATIVE) 08/28/16 15:25 Urine Blood TRACE (NEGATIVE) 08/28/16 15:25 Urine Nitrate NEGATIVE (NEGATIVE) 08/28/16 15:25 Urine Bilirubin NEGATIVE (NEGATIVE) 08/28/16 15:25 Urine Urobilinogen 0.2 E.U./dL (0.2 - 1.0) 08/28/16 15:25 Ur Leukocyte Esterase NEGATIVE (NEGATIVE) 08/28/16 15:25 Urine RBC 0-2 /hpf (0-5) H 08/28/16 15:25 Urine WBC 2-5 /hpf (0-5) H 08/28/16 15:25 Ur Epithelial Cells RARE /lpf (FEW) 08/28/16 15:25 Urine Bacteria OCCASIONAL /hpf (NONE SEEN) 08/28/16 15:25 Random Vancomycin 18.2 ug/mL (5.0-40.0) 08/30/16 06:48 Hepatitis A IgM Ab Negative (Negative) 08/26/16 06:15 Hep Bs Antigen Negative (Negative) 08/26/16 06:15 Hep B Core IgM Ab Negative (Negative) 08/26/16 06:15 Hepatitis C Antibody <0.1 s/co ratio (0.0-0.9) 08/26/16 06:15 - Physical Exam Vitals and I&O: Vital Signs Temp 98.8 F 08/30/16 12:10 Pulse 70 08/30/16 12:10 Resp 19 08/30/16 12:10 BP 172/73 08/30/16 12:10 Pulse Ox 100 08/30/16 12:10 Intake & Output 08/29/16 08/30/16 08/30/16 18:59 06:59 18:59 Intake Total 600 420 Balance 600 420 Intake: Oral 600 420 Other: # Voids 1 # Bowel Movements 0 Active Medications: Current Medications Acetaminophen (Tylenol) 650 mg PO Q4H PRN PRN Reason: fever Stop: 10/22/16 19:59 Last Admin: 08/28/16 10:22 Dose: 650 mg Calcium Acetate (Phoslo) 667 mg PO TIDWM DEB Stop: 10/23/16 16:59 Last Admin: 08/30/16 08:56 Dose: 667 mg Epoetin Tejas (Epogen) 10,000 units SUBQ MoWeFr DEB Stop: 10/23/16 14:14 Last Admin: 08/28/16 13:23 Dose: 10,000 units Hydromorphone HCl (Dilaudid) 1 mg IVP Q4HR PRN PRN Reason: Severe Pain Stop: 10/26/16 19:58 Last Admin: 08/30/16 09:53 Dose: 1 mg Insulin Aspart (Novolog Insulin Sliding Scale) 0 units SUBQ ACHS DEB PRN Reason: Protocol Stop: 10/23/16 07:29 Last Admin: 08/30/16 12:25 Dose: 2 units Insulin Human Isoph/Insulin Regular (Novolin 70/30) 6 units SUBQ QDAC DEB PRN Reason: Protocol Stop: 10/28/16 07:29 Last Admin: 08/30/16 06:40 Dose: 6 units Miscellaneous (Clinical Monitoring) 1 [facility] DAILY PRN PRN Reason: RENAL Stop: 10/23/16 08:19 Miscellaneous (Vancomycin Iv Per Pharmacy) 1 [facility] PRN PRN PRN Reason: PROTOCOL Stop: 10/23/16 14:11 Ondansetron HCl (Zofran) 4 mg IV Q4H PRN PRN Reason: Nausea / Vomiting Stop: 10/24/16 18:51 Last Admin: 08/29/16 13:22 Dose: 4 mg Tramadol HCl (Ultram) 50 mg PO Q4HR PRN PRN Reason: Pain (Moderate) Stop: 10/27/16 09:02 Last Admin: 08/30/16 08:58 Dose: 50 mg - Procedures Procedures: Procedures Procedure Code Date AMPUTATION THRU METATARSAL 43610 08/23/16 DETACHMENT AT RIGHT FOOT, PARTIAL 1ST RAY, OPEN APPROACH [id number] 08/23/16 DETACHMENT AT RIGHT FOOT, PARTIAL 2ND RAY, OPEN APPROACH [id number] 08/23/16 Nutritional Asmnt/Malnutr-PDOC - Dietary Evaluation Malnutrition Findings (Please click <Entered> for more info): Nutritional Asmnt/Malnutrition Start: 08/25/16 15: 01 Text: Status: Active Freq: Document 08/25/16 15:01 GSUN (Rec: 08/25/16 15:18 [id number]) Nutritional Asmnt/Malnutrition Patient General Information Nutritional Screening Consult Diagnosis Sepsis secondary to foot ulcer Pertinent Medical Hx/Surgical Hx DM, HTN, ESRD on HD Subjective Information 60 year old male from home with caregiver. RD consult for chronic wounds. Pt was alert with family at bedside during visit. Avg PO intake 100% of meals. Pt stated good appetite , would like more food. Pt expressed preference for fruits, RD explained consistant carb. RD vriefly discussed CCHO and renal diet. Pt does not wish to go in further detail at this time, stating he has a caregiver and speaks to a dietitian at HD center. Pt report UBW dry weight 88kg/193.6lb, denied recent weight changes. Current Diet Order/ Nutrition Support Renal, [id number] Pertinent Medications Epogen, Novolog, Vancomycin Pertinent Labs 08/23: A1c 7.8H 08/25: creatinine 4.6H, glucose 163H Nutritional Hx/Data Height 1.75 m Height (Calculated Centimeters) 175.3 Current Weight (lbs) 81.647 kg Weight (Calculated Kilograms) 81.6 Weight (Calculated Grams) 96408.6 Usual body Weight (lbs) 194 [place] Body Weight 160 Recent Weight Change No Weight Status Overweight GI Symptoms Skin Integrity/Comment: Filippo Gonzalez. Woudn care 08/24: chronic wound on right foot. Current %PO Good (75-100%) Estimated Nutritional Goals Calories/Kcals/Kg IBW 160lb/72.7kg Kcals Calculated 2181-2545kcal (30-35kcal/kg) Protein g/kg: IBW Protein Calculated 102-124g (1.4-1.7g/kg) Fluid: ml Per MD (ERDS on HD) Nutritional Problem 1. Problem Problem Increased kcal and prot needs related to Etiology hypermetabolic state Signs/Symptoms: H&P: sepsis secondary to foot ulcer, ESRD on HD Intervention/Recommendation Comments 1. Recommend [id number] due to pt is in hypermetbaolic state on HD and expressed hunger. Expected Outcomes/Goals Expected Outcomes/Goals 1. PO intake continue to meet at least 75% of estimated nutritional needs. 2. Provided brief edu on current diet, CCHO and renal. Pt does not wish to discuss further in detail as pt has a caregiver and speaks to a dietitan at HD center. RD made sure pt knows RD's availability if he should have any questions.
--- NOTE | 2016-08-30 17:55 | General Progress Note ---
Subjective - Review of Systems Service Date: 08/30/16 Subjective: alert, pain right foot, eating dinner, better spirits today Objective - Results Result Diagrams: 08/30/16 06:48 08/30/16 06:48 Recent Labs: Laboratory Last Values WBC 10.4 Th/cmm (4.8-10.8) 08/30/16 06:48 RBC 3.02 Mil/cmm (4.30-5.70) L 08/30/16 06:48 Hgb 9.1 gm/dL (13.2-17.3) L 08/30/16 06:48 Hct 27.1 % (39.0-49.0) L 08/30/16 06:48 MCV 89.6 fl (80-99) 08/30/16 06:48 MCH 30.1 pg (26.0-30.0) H 08/30/16 06:48 MCHC Differential 33.6 pg (28.0-36.0) 08/30/16 06:48 RDW 14.0 % (11.5-20.0) 08/30/16 06:48 Plt Count 301 Th/cmm (150-400) 08/30/16 06:48 MPV 6.9 fl 08/30/16 06:48 Neutrophils % 75.9 % (40.0-80.0) 08/30/16 06:48 Band Neutrophils % 1 % (0-10) 08/26/16 06:15 Lymphocytes % 13.4 % (20.0-50.0) L 08/30/16 06:48 Monocytes % 6.5 % (2.0-10.0) 08/30/16 06:48 Eosinophils % 3.1 % (0.0-5.0) 08/30/16 06:48 Basophils % 1.1 % (0.0-2.0) 08/30/16 06:48 Neutrophils (Manual) 86 % (40-80) H 08/26/16 06:15 Lymphocytes 6 % (20-50) L 08/26/16 06:15 Monocytes 5 % (2-10) 08/26/16 06:15 Eosinophils 2 % (0-5) 08/26/16 06:15 Basophils 1 % (0-3) 08/25/16 06:40 Platelet Estimate ADEQUATE (NORMAL) 08/26/16 06:15 Platelet Morphology NORMAL (NORMAL) 08/26/16 06:15 Polychromasia 1+ 08/25/16 06:40 Anisocytosis 1+ 08/26/16 06:15 RBC Morph Micro Appear ABNORMAL (NORMAL) 08/26/16 06:15 PT 12.6 SECONDS (9.5-11.5) H 08/26/16 06:15 INR 1.20 (0.5-1.4) 08/26/16 06:15 PTT (Actin FS) 31.1 SECONDS (26.0-38.0) 08/26/16 06:15 Sodium 138 mEq/L (136-145) 08/30/16 06:48 Potassium 4.1 mEq/L (3.5-5.1) 08/30/16 06:48 Chloride 100 mEq/L (98-107) 08/30/16 06:48 Carbon Dioxide 25.8 mEq/L (21.0-31.0) 08/30/16 06:48 Anion Gap 16.3 (7.0-16.0) H 08/30/16 06:48 BUN 22 mg/dL (7-25) 08/30/16 06:48 Creatinine 5.7 mg/dL (0.7-1.3) H* 08/30/16 06:48 Est GFR ( Amer) 13.2 ml/min (>90) 08/30/16 06:48 Est GFR (Non-Af Amer) 10.9 ml/min 08/30/16 06:48 BUN/Creatinine Ratio 3.9 08/30/16 06:48 Glucose 202 mg/dL (70-105) H 08/30/16 06:48 POC Glucose 155 MG/DL (70 - 105) H 08/30/16 16:51 Hemoglobin A1c % 7.8 % (4.0-6.0) H 08/23/16 20:29 Uric Acid 8.5 mg/dL (4.4-7.6) H 08/24/16 06:12 Calcium 9.2 mg/dL (8.6-10.3) 08/30/16 06:48 Phosphorus 5.4 mg/dL (2.5-5.0) H 08/24/16 06:12 Magnesium 2.0 mg/dL (1.9-2.7) 08/24/16 06:12 Total Bilirubin 0.3 mg/dL (0.3-1.0) 08/30/16 06:48 AST 13 U/L (13-39) 08/30/16 06:48 ALT 13 U/L (7-52) 08/30/16 06:48 Alkaline Phosphatase 239 U/L (34-104) H 08/30/16 06:48 Total Protein 6.4 gm/dL (6.0-8.3) 08/30/16 06:48 Albumin 2.9 gm/dL (4.2-5.5) L 08/30/16 06:48 Globulin 3.5 gm/dL 08/30/16 06:48 Albumin/Globulin Ratio 0.8 (1.0-1.8) L 08/30/16 06:48 Triglycerides 90 mg/dL (<150) 08/24/16 06:12 Cholesterol 73 mg/dL (<200) 08/24/16 06:12 LDL Cholesterol Direct 25 mg/dL (75-193) L 08/24/16 06:12 HDL Cholesterol 28 mg/dL (23-92) 08/24/16 06:12 Amylase 14 U/L (29-103) L 08/25/16 06:40 Lipase 20 U/L (11-82) 08/24/16 06:12 Vitamin B12 1646 pg/mL (211-946) H 08/24/16 06:12 Vitamin D 25-Hydroxy 5.9 ng/mL (30.0-100.0) L 08/24/16 06:12 Free T4 0.91 ng/dL (0.82-1.77) 08/24/16 06:12 TSH 0.93 uIU/ml (0.34-5.60) 08/24/16 06:12 Urine Source CLEAN C 08/28/16 15:25 Urine Color YELLOW 08/28/16 15:25 Urine Clarity CLEAR (CLEAR) 08/28/16 15:25 Urine pH 8.5 08/28/16 15:25 Ur Specific [place] 1.020 (1.005-1.030) 08/28/16 15:25 Urine Protein >300 mg/dL (NEGATIVE) H 08/28/16 15:25 Urine Glucose (UA) 250 mg/dL (NEGATIVE) H 08/28/16 15:25 Urine Ketones TRACE mg/dL (NEGATIVE) 08/28/16 15:25 Urine Blood TRACE (NEGATIVE) 08/28/16 15:25 Urine Nitrate NEGATIVE (NEGATIVE) 08/28/16 15:25 Urine Bilirubin NEGATIVE (NEGATIVE) 08/28/16 15:25 Urine Urobilinogen 0.2 E.U./dL (0.2 - 1.0) 08/28/16 15:25 Ur Leukocyte Esterase NEGATIVE (NEGATIVE) 08/28/16 15:25 Urine RBC 0-2 /hpf (0-5) H 08/28/16 15:25 Urine WBC 2-5 /hpf (0-5) H 08/28/16 15:25 Ur Epithelial Cells RARE /lpf (FEW) 08/28/16 15:25 Urine Bacteria OCCASIONAL /hpf (NONE SEEN) 08/28/16 15:25 Random Vancomycin 18.2 ug/mL (5.0-40.0) 08/30/16 06:48 Hepatitis A IgM Ab Negative (Negative) 08/26/16 06:15 Hep Bs Antigen Negative (Negative) 08/26/16 06:15 Hep B Core IgM Ab Negative (Negative) 08/26/16 06:15 Hepatitis C Antibody <0.1 s/co ratio (0.0-0.9) 08/26/16 06:15 - Physical Exam Vitals and I&O: Vital Signs Temp 98.8 F 08/30/16 16:00 Pulse 75 08/30/16 16:00 Resp 20 08/30/16 16:00 BP 167/67 08/30/16 16:00 Pulse Ox 99 08/30/16 16:00 Intake & Output 08/29/16 08/30/16 08/30/16 18:59 06:59 18:59 Intake Total 600 420 Balance 600 420 Intake: Oral 600 420 Other: # Voids 1 # Bowel Movements 0 Active Medications: Current Medications Acetaminophen (Tylenol) 650 mg PO Q4H PRN PRN Reason: fever Stop: 10/22/16 19:59 Last Admin: 08/28/16 10:22 Dose: 650 mg Calcium Acetate (Phoslo) 667 mg PO TIDWM DEB Stop: 10/23/16 16:59 Last Admin: 08/30/16 16:53 Dose: 667 mg Epoetin Tejas (Epogen) 10,000 units SUBQ MoWeFr DEB Stop: 10/23/16 14:14 Last Admin: 08/28/16 13:23 Dose: 10,000 units Hydromorphone HCl (Dilaudid) 1 mg IVP Q4HR PRN PRN Reason: Severe Pain Stop: 10/26/16 19:58 Last Admin: 08/30/16 09:53 Dose: 1 mg Insulin Aspart (Novolog Insulin Sliding Scale) 0 units SUBQ ACHS DEB PRN Reason: Protocol Stop: 10/23/16 07:29 Last Admin: 08/30/16 12:25 Dose: 2 units Insulin Human Isoph/Insulin Regular (Novolin 70/30) 6 units SUBQ QDAC DEB PRN Reason: Protocol Stop: 10/28/16 07:29 Last Admin: 08/30/16 06:40 Dose: 6 units Miscellaneous (Clinical Monitoring) 1 [facility] DAILY PRN PRN Reason: RENAL Stop: 10/23/16 08:19 Miscellaneous (Vancomycin Iv Per Pharmacy) 1 [facility] PRN PRN PRN Reason: PROTOCOL Stop: 10/23/16 14:11 Ondansetron HCl (Zofran) 4 mg IV Q4H PRN PRN Reason: Nausea / Vomiting Stop: 10/24/16 18:51 Last Admin: 08/29/16 13:22 Dose: 4 mg Tramadol HCl (Ultram) 50 mg PO Q4HR PRN PRN Reason: Pain (Moderate) Stop: 10/27/16 09:02 Last Admin: 08/30/16 08:58 Dose: 50 mg General: Alert, Cooperative, Moderate distress HEENT: Atraumatic, Mucous membr. moist/pink Neck: Supple, +2 carotid pulse wo bruit Cardiovascular: Regular rate, Normal S1, Normal S2 Lungs: Clear to auscultation Abdomen: Bowel sounds, Soft Extremities: Other (presemce wood vac right foot), no Edema Neurological: Sensation intact Skin: no Rash Psych/Mental Status: Mood NL - Procedures Procedures: Procedures Procedure Code Date AMPUTATION THRU METATARSAL 18766 08/23/16 DETACHMENT AT RIGHT FOOT, PARTIAL 1ST RAY, OPEN APPROACH [id number] 08/23/16 DETACHMENT AT RIGHT FOOT, PARTIAL 2ND RAY, OPEN APPROACH [id number] 08/23/16 Assessment/Plan - Assessment Assessment: ESRD on HD Met Enceph 2nd hypolglycemia Sepsis 2nd to Infected, Necrotic right foot ulcer DM2 Ess Htn Anemia of CKD B/L PAD S/P 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 - Plan Plan: Lab - Result Diagrams 08/25/16 06:40 08/25/16 06:40 Current Medications Acetaminophen (Tylenol) 650 mg PO Q4H PRN PRN Reason: fever Stop: 10/22/16 19:59 Last Admin: 08/25/16 00:07 Dose: 650 mg Calcium Acetate (Phoslo) 667 mg PO TIDWM DEB Stop: 10/23/16 16:59 Last Admin: 08/25/16 16:15 Dose: 667 mg Epoetin Tejas (Epogen) 10,000 units SUBQ MoWeFr DEB Stop: 10/23/16 14:14 Last Admin: 08/24/16 16:24 Dose: 10,000 units Hydromorphone HCl (Dilaudid) 1 mg IVP Q6HR PRN PRN Reason: Pain (Moderate) Stop: 10/22/16 19:59 Last Admin: 08/25/16 11:50 Dose: 1 mg Ceftriaxone Sodium 1 gm/ (Sodium Chloride) 50 mls @ 100 mls/hr IV Q24HR DEB Stop: 10/22/16 20:59 Last Admin: 08/24/16 20:48 Dose: 100 mls/hr Insulin Aspart (Novolog Insulin Sliding Scale) 0 units SUBQ ACHS DEB PRN Reason: Protocol Stop: 10/23/16 07:29 Last Admin: 08/25/16 11:51 Dose: 1,000 units Miscellaneous (Clinical Monitoring) 1 ea DAILY PRN PRN Reason: RENAL Stop: 10/23/16 08:19 Miscellaneous (Vancomycin Iv Per Pharmacy) 1 ea PRN PRN PRN Reason: PROTOCOL Stop: 10/23/16 14:11 schedule for HD in am continue Rocephin Right HODAN 1, Left HODAN 0.8 not indicative of severe PAD Pt. had ray amputation right 1st & 2nd digits w/ wound vac possible TMA right foot Nutritional Asmnt/Malnutr-PDOC - Dietary Evaluation Malnutrition Findings (Please click <Entered> for more info): Nutritional Asmnt/Malnutrition Start: 08/25/16 15: 01 Text: Status: Active Freq: Document 08/25/16 15:01 RADHA (Rec: 08/25/16 15:18 [id number]) Nutritional Asmnt/Malnutrition Patient General Information Nutritional Screening Consult Diagnosis Sepsis secondary to foot ulcer Pertinent Medical Hx/Surgical Hx DM, HTN, ESRD on HD Subjective Information 60 year old male from home with caregiver. RD consult for chronic wounds. Pt was alert with family at bedside during visit. Avg PO intake 100% of meals. Pt stated good appetite , would like more food. Pt expressed preference for fruits, RD explained consistant carb. RD vriefly discussed CCHO and renal diet. Pt does not wish to go in further detail at this time, stating he has a caregiver and speaks to a dietitian at HD center. Pt report UBW dry weight 88kg/193.6lb, denied recent weight changes. Current Diet Order/ Nutrition Support Renal, [id number] Pertinent Medications Epogen, Novolog, Vancomycin Pertinent Labs 08/23: A1c 7.8H 08/25: creatinine 4.6H, glucose 163H Nutritional Hx/Data Height 1.75 m Height (Calculated Centimeters) 175.3 Current Weight (lbs) 81.647 kg Weight (Calculated Kilograms) 81.6 Weight (Calculated Grams) 18354.6 Usual body Weight (lbs) 194 [place] Body Weight 160 Recent Weight Change No Weight Status Overweight GI Symptoms Skin Integrity/Comment: Filippo Gonzalez. Woudn care 08/24: chronic wound on right foot. Current %PO Good (75-100%) Estimated Nutritional Goals Calories/Kcals/Kg IBW 160lb/72.7kg Kcals Calculated 2181-2545kcal (30-35kcal/kg) Protein g/kg: IBW Protein Calculated 102-124g (1.4-1.7g/kg) Fluid: ml Per MD (ERDS on HD) Nutritional Problem 1. Problem Problem Increased kcal and prot needs related to Etiology hypermetabolic state Signs/Symptoms: H&P: sepsis secondary to foot ulcer, ESRD on HD Intervention/Recommendation Comments 1. Recommend [id number] due to pt is in hypermetbaolic state on HD and expressed hunger. Expected Outcomes/Goals Expected Outcomes/Goals 1. PO intake continue to meet at least 75% of estimated nutritional needs. 2. Provided brief edu on current diet, CCHO and renal. Pt does not wish to discuss further in detail as pt has a caregiver and speaks to a dietitan at HD center. RD made sure pt knows RD's availability if he should have any questions.
[2016-08-30] MEDS ORDERED: Sodium Chloride 0.9% 1,000 ML IV SCH (22:15)
[2016-08-31 06:44] LABS: % EOSINOPHILS 2.3 % (0.0-5.0); % LYMPHOCYTES 10.5 % (20.0-50.0); % MONOCYTES 5.2 % (2.0-10.0); HEMATOCRIT 24.6 % (39.0-49.0); HEMOGLOBIN 8.3 gm/dL (13.2-17.3); MEAN CELL VOLUME 88.2 fl (80-99); MEAN CORPUSCULAR HEMOGLOBIN 29.8 pg (26.0-30.0); MEAN CORPUSCULAR HGB CONC 33.8 pg (28.0-36.0); MEAN PLATELET VOLUME 6.4 fl; NEUTROPHILE ABSOLUTE 8.7 Th/cmm (1.8-8.0); PLATELET COUNT 271 Th/cmm (150-400); RED BLOOD COUNT 2.79 Mil/cmm (4.30-5.70); RED CELL DISTRIBUTION WIDTH 14.1 % (11.5-20.0); WHITE BLOOD COUNT 10.7 Th/cmm (4.8-10.8)
[2016-08-31 06:56] LABS: INR 1.09 (0.5-1.4); PROTHROMBIN TIME (TEST) 11.3 SECONDS (9.5-11.5)
[2016-08-31 07:02] LABS: ALB/GLOB RATIO 0.8 (1.0-1.8); ANION GAP 15.7 (7.0-16.0); BILIRUBIN,TOTAL 0.3 mg/dL (0.3-1.0); BUN/CREATININE RATIO 4.1; CALCIUM SERUM 8.9 mg/dL (8.6-10.3); CARBON DIOXIDE 24.8 mEq/L (21.0-31.0); POTASSIUM SERUM 4.5 mEq/L (3.5-5.1)
[2016-08-31 07:06] LABS: CREATININE - SERUM 6.4 mg/dL (0.7-1.3)
[2016-08-31] MEDS ORDERED: Midazolam 1mg/ml 2 ml vial IV ONE (07:33)
[2016-08-31] MEDS: INSULIN ASPART SLIDING SCALE 100 UNITS/ML UNIT SUBQ SCH ×4 (07:55→21:26)
[2016-08-31] MEDS: INSULIN 70/30 100 UNITS/ML SUBQ SCH (07:56)
[2016-08-31] MEDS ORDERED: Sodium Chloride 0.9% 1,000 ML IV ONE (08:00)
[2016-08-31] MEDS ORDERED: Meperidine 25 mg/mL 1mL Syr IVP PRN (08:08)
[2016-08-31] MEDS ORDERED: Lactated Ringer 1,000 ML IV SCH (08:15)
--- NOTE | 2016-08-31 08:39 | General Progress Note ---
Subjective - Review of Systems Service Date: 08/31/16 Subjective: I have pain. Objective - Results Result Diagrams: 08/31/16 06:30 08/31/16 06:30 Recent Labs: Laboratory Last Values WBC 10.7 Th/cmm (4.8-10.8) 08/31/16 06:30 RBC 2.79 Mil/cmm (4.30-5.70) L 08/31/16 06:30 Hgb 8.3 gm/dL (13.2-17.3) L 08/31/16 06:30 Hct 24.6 % (39.0-49.0) L 08/31/16 06:30 MCV 88.2 fl (80-99) 08/31/16 06:30 MCH 29.8 pg (26.0-30.0) 08/31/16 06:30 MCHC Differential 33.8 pg (28.0-36.0) 08/31/16 06:30 RDW 14.1 % (11.5-20.0) 08/31/16 06:30 Plt Count 271 Th/cmm (150-400) 08/31/16 06:30 MPV 6.4 fl 08/31/16 06:30 Neutrophils % 81.0 % (40.0-80.0) H 08/31/16 06:30 Band Neutrophils % 1 % (0-10) 08/26/16 06:15 Lymphocytes % 10.5 % (20.0-50.0) L 08/31/16 06:30 Monocytes % 5.2 % (2.0-10.0) 08/31/16 06:30 Eosinophils % 2.3 % (0.0-5.0) 08/31/16 06:30 Basophils % 1.0 % (0.0-2.0) 08/31/16 06:30 Neutrophils (Manual) 86 % (40-80) H 08/26/16 06:15 Lymphocytes 6 % (20-50) L 08/26/16 06:15 Monocytes 5 % (2-10) 08/26/16 06:15 Eosinophils 2 % (0-5) 08/26/16 06:15 Basophils 1 % (0-3) 08/25/16 06:40 Platelet Estimate ADEQUATE (NORMAL) 08/26/16 06:15 Platelet Morphology NORMAL (NORMAL) 08/26/16 06:15 Polychromasia 1+ 08/25/16 06:40 Anisocytosis 1+ 08/26/16 06:15 RBC Morph Micro Appear ABNORMAL (NORMAL) 08/26/16 06:15 PT 11.3 SECONDS (9.5-11.5) 08/31/16 06:30 INR 1.09 (0.5-1.4) 08/31/16 06:30 PTT (Actin FS) 26.1 SECONDS (26.0-38.0) 08/31/16 06:30 Sodium 135 mEq/L (136-145) L 08/31/16 06:30 Potassium 4.5 mEq/L (3.5-5.1) 08/31/16 06:30 Chloride 99 mEq/L (98-107) 08/31/16 06:30 Carbon Dioxide 24.8 mEq/L (21.0-31.0) 08/31/16 06:30 Anion Gap 15.7 (7.0-16.0) 08/31/16 06:30 BUN 26 mg/dL (7-25) H 08/31/16 06:30 Creatinine 6.4 mg/dL (0.7-1.3) H* 08/31/16 06:30 Est GFR ( Amer) 11.5 ml/min (>90) 08/31/16 06:30 Est GFR (Non-Af Amer) 9.5 ml/min 08/31/16 06:30 BUN/Creatinine Ratio 4.1 08/31/16 06:30 Glucose 282 mg/dL (70-105) H 08/31/16 06:30 POC Glucose 261 MG/DL (70 - 105) H 08/31/16 05:24 Hemoglobin A1c % 7.8 % (4.0-6.0) H 08/23/16 20:29 Uric Acid 8.5 mg/dL (4.4-7.6) H 08/24/16 06:12 Calcium 8.9 mg/dL (8.6-10.3) 08/31/16 06:30 Phosphorus 5.4 mg/dL (2.5-5.0) H 08/24/16 06:12 Magnesium 2.0 mg/dL (1.9-2.7) 08/24/16 06:12 Total Bilirubin 0.3 mg/dL (0.3-1.0) 08/31/16 06:30 AST 14 U/L (13-39) 08/31/16 06:30 ALT 13 U/L (7-52) 08/31/16 06:30 Alkaline Phosphatase 217 U/L (34-104) H 08/31/16 06:30 Total Protein 6.4 gm/dL (6.0-8.3) 08/31/16 06:30 Albumin 2.9 gm/dL (4.2-5.5) L 08/31/16 06:30 Globulin 3.5 gm/dL 08/31/16 06:30 Albumin/Globulin Ratio 0.8 (1.0-1.8) L 08/31/16 06:30 Triglycerides 90 mg/dL (<150) 08/24/16 06:12 Cholesterol 73 mg/dL (<200) 08/24/16 06:12 LDL Cholesterol Direct 25 mg/dL (75-193) L 08/24/16 06:12 HDL Cholesterol 28 mg/dL (23-92) 08/24/16 06:12 Amylase 14 U/L (29-103) L 08/25/16 06:40 Lipase 20 U/L (11-82) 08/24/16 06:12 Vitamin B12 1646 pg/mL (211-946) H 08/24/16 06:12 Vitamin D 25-Hydroxy 5.9 ng/mL (30.0-100.0) L 08/24/16 06:12 Free T4 0.91 ng/dL (0.82-1.77) 08/24/16 06:12 TSH 0.93 uIU/ml (0.34-5.60) 08/24/16 06:12 Urine Source CLEAN C 08/28/16 15:25 Urine Color YELLOW 08/28/16 15:25 Urine Clarity CLEAR (CLEAR) 08/28/16 15:25 Urine pH 8.5 08/28/16 15:25 Ur Specific [place] 1.020 (1.005-1.030) 08/28/16 15:25 Urine Protein >300 mg/dL (NEGATIVE) H 08/28/16 15:25 Urine Glucose (UA) 250 mg/dL (NEGATIVE) H 08/28/16 15:25 Urine Ketones TRACE mg/dL (NEGATIVE) 08/28/16 15:25 Urine Blood TRACE (NEGATIVE) 08/28/16 15:25 Urine Nitrate NEGATIVE (NEGATIVE) 08/28/16 15:25 Urine Bilirubin NEGATIVE (NEGATIVE) 08/28/16 15:25 Urine Urobilinogen 0.2 E.U./dL (0.2 - 1.0) 08/28/16 15:25 Ur Leukocyte Esterase NEGATIVE (NEGATIVE) 08/28/16 15:25 Urine RBC 0-2 /hpf (0-5) H 08/28/16 15:25 Urine WBC 2-5 /hpf (0-5) H 08/28/16 15:25 Ur Epithelial Cells RARE /lpf (FEW) 08/28/16 15:25 Urine Bacteria OCCASIONAL /hpf (NONE SEEN) 08/28/16 15:25 Random Vancomycin 18.2 ug/mL (5.0-40.0) 08/30/16 06:48 Hepatitis A IgM Ab Negative (Negative) 08/26/16 06:15 Hep Bs Antigen Negative (Negative) 08/26/16 06:15 Hep B Core IgM Ab Negative (Negative) 08/26/16 06:15 Hepatitis C Antibody <0.1 s/co ratio (0.0-0.9) 08/26/16 06:15 - Physical Exam Vitals and I&O: Vital Signs Temp 98.4 F 08/31/16 04:00 Pulse 71 08/31/16 04:00 Resp 19 08/31/16 04:00 BP 153/66 08/31/16 04:00 Pulse Ox 99 08/31/16 04:00 Intake & Output 08/30/16 08/31/16 08/31/16 18:59 06:59 18:59 Intake Total 950 150 Balance 950 150 Intake: Oral 950 150 Other: # Voids 4 # Bowel Movements 1 Active Medications: Current Medications Acetaminophen (Tylenol) 650 mg PO Q4H PRN PRN Reason: fever Stop: 10/22/16 19:59 Last Admin: 08/28/16 10:22 Dose: 650 mg Calcium Acetate (Phoslo) 667 mg PO TIDWM DEB Stop: 10/23/16 16:59 Last Admin: 08/30/16 16:53 Dose: 667 mg Epoetin Tejas (Epogen) 10,000 units SUBQ MoWeFr [facility] Stop: 10/23/16 14:14 Last Admin: 08/28/16 13:23 Dose: 10,000 units Hydromorphone HCl (Dilaudid) 1 mg IVP Q4HR PRN PRN Reason: Severe Pain Stop: 10/26/16 19:58 Last Admin: 08/30/16 21:49 Dose: 1 mg Sodium Chloride (Nacl 0.9%) 1,000 mls @ 75 mls/hr IV .[id number] [facility] Stop: 10/29/16 22:14 Last Admin: 08/30/16 22:18 Dose: 75 mls/hr Lactated Ringer's (Lactated Ringer) 1,000 mls @ 0 mls/hr IV .Q0M DEB PRN Reason: TKO Stop: 09/01/16 08:14 Insulin Aspart (Novolog Insulin Sliding Scale) 0 units SUBQ ACHS DEB PRN Reason: Protocol Stop: 10/23/16 07:29 Last Admin: 08/31/16 07:55 Dose: Not Given Insulin Human Isoph/Insulin Regular (Novolin 70/30) 6 units SUBQ QDAC DBE PRN Reason: Protocol Stop: 10/28/16 07:29 Last Admin: 08/31/16 07:56 Dose: Not Given Meperidine HCl (Demerol) 12.5 mg IVP UD PRN PRN Reason: POST-OP PAIN Stop: 09/01/16 08:07 Miscellaneous (Clinical Monitoring) 1 ea DAILY PRN PRN Reason: RENAL Stop: 10/23/16 08:19 Miscellaneous (Vancomycin Iv Per Pharmacy) 1 ea PRN PRN PRN Reason: PROTOCOL Stop: 10/23/16 14:11 Ondansetron HCl (Zofran) 4 mg IV Q4H PRN PRN Reason: Nausea / Vomiting Stop: 10/24/16 18:51 Last Admin: 08/29/16 13:22 Dose: 4 mg Ondansetron HCl (Zofran) 4 mg IV X1 PRN PRN Reason: Nausea / Vomiting Stop: 09/01/16 08:07 Tramadol HCl (Ultram) 50 mg PO Q4HR PRN PRN Reason: Pain (Moderate) Stop: 10/27/16 09:02 Last Admin: 08/30/16 08:58 Dose: 50 mg General: Alert, Oriented x3, Cooperative, No acute distress HEENT: Atraumatic Neck: Supple Cardiovascular: Regular rate Lungs: Clear to auscultation Abdomen: Bowel sounds, Soft Extremities: Other (Surgical wound cover and suction) Neurological: Other (Non ambulatory at this moment) Skin: Other (Warm and dry) Psych/Mental Status: Mental status NL - Procedures Procedures: Procedures Procedure Code Date AMPUTATION THRU METATARSAL 19513 08/23/16 DETACHMENT AT RIGHT FOOT, PARTIAL 1ST RAY, OPEN APPROACH [id number] 08/23/16 DETACHMENT AT RIGHT FOOT, PARTIAL 2ND RAY, OPEN APPROACH [id number] 08/23/16 Assessment/Plan - Assessment Assessment: Patient is awake, alert, calm, in some distress due to pain. Dx: Sepsis to Diabetic ulcer, DM, HTN, ESRD on HD. - Plan Plan: Patient in Rocephin, IV NS. Patient accepted surgical procedure that Dr. Harrington recommended ( amputation of all toes). Surgery will be done today. Will continue to monitor. Nutritional Asmnt/Malnutr-PDOC - Dietary Evaluation Malnutrition Findings (Please click <Entered> for more info): Nutritional Asmnt/Malnutrition Start: 08/25/16 15: 01 Text: Status: Active Freq: Document 08/25/16 15:01 TRES (Rec: 08/25/16 15:18 [id number]) Nutritional Asmnt/Malnutrition Patient General Information Nutritional Screening Consult Diagnosis Sepsis secondary to foot ulcer Pertinent Medical Hx/Surgical Hx DM, HTN, ESRD on HD Subjective Information 60 year old male from home with caregiver. RD consult for chronic wounds. Pt was alert with family at bedside during visit. Avg PO intake 100% of meals. Pt stated good appetite , would like more food. Pt expressed preference for fruits, RD explained consistant carb. RD vriefly discussed CCHO and renal diet. Pt does not wish to go in further detail at this time, stating he has a caregiver and speaks to a dietitian at HD center. Pt report UBW dry weight 88kg/193.6lb, denied recent weight changes. Current Diet Order/ Nutrition Support Renal, [id number] Pertinent Medications Epogen, Novolog, Vancomycin Pertinent Labs 08/23: A1c 7.8H 08/25: creatinine 4.6H, glucose 163H Nutritional Hx/Data Height 1.75 m Height (Calculated Centimeters) 175.3 Current Weight (lbs) 81.647 kg Weight (Calculated Kilograms) 81.6 Weight (Calculated Grams) 85863.6 Usual body Weight (lbs) 194 [place] Body Weight 160 Recent Weight Change No Weight Status Overweight GI Symptoms Skin Integrity/Comment: Filippo 16. Woudn care 08/24: chronic wound on right foot. Current %PO Good (75-100%) Estimated Nutritional Goals Calories/Kcals/Kg IBW 160lb/72.7kg Kcals Calculated 2181-2545kcal (30-35kcal/kg) Protein g/kg: IBW Protein Calculated 102-124g (1.4-1.7g/kg) Fluid: ml Per MD (ERDS on HD) Nutritional Problem 1. Problem Problem Increased kcal and prot needs related to Etiology hypermetabolic state Signs/Symptoms: H&P: sepsis secondary to foot ulcer, ESRD on HD Intervention/Recommendation Comments 1. Recommend [id number] due to pt is in hypermetbaolic state on HD and expressed hunger. Expected Outcomes/Goals Expected Outcomes/Goals 1. PO intake continue to meet at least 75% of estimated nutritional needs. 2. Provided brief edu on current diet, CCHO and renal. Pt does not wish to discuss further in detail as pt has a caregiver and speaks to a dietitan at HD center. RD made sure pt knows RD's availability if he should have any questions.
--- NOTE | 2016-08-31 08:45 | General Progress Note ---
Subjective - Review of Systems Service Date: 08/31/16 Events since last encounter: 08/31/16 right transmetatarsal amputation done , patient tolerated procedure well Objective - Results Result Diagrams: 08/31/16 06:30 08/31/16 06:30 Recent Labs: Laboratory Last Values WBC 10.7 Th/cmm (4.8-10.8) 08/31/16 06:30 RBC 2.79 Mil/cmm (4.30-5.70) L 08/31/16 06:30 Hgb 8.3 gm/dL (13.2-17.3) L 08/31/16 06:30 Hct 24.6 % (39.0-49.0) L 08/31/16 06:30 MCV 88.2 fl (80-99) 08/31/16 06:30 MCH 29.8 pg (26.0-30.0) 08/31/16 06:30 MCHC Differential 33.8 pg (28.0-36.0) 08/31/16 06:30 RDW 14.1 % (11.5-20.0) 08/31/16 06:30 Plt Count 271 Th/cmm (150-400) 08/31/16 06:30 MPV 6.4 fl 08/31/16 06:30 Neutrophils % 81.0 % (40.0-80.0) H 08/31/16 06:30 Band Neutrophils % 1 % (0-10) 08/26/16 06:15 Lymphocytes % 10.5 % (20.0-50.0) L 08/31/16 06:30 Monocytes % 5.2 % (2.0-10.0) 08/31/16 06:30 Eosinophils % 2.3 % (0.0-5.0) 08/31/16 06:30 Basophils % 1.0 % (0.0-2.0) 08/31/16 06:30 Neutrophils (Manual) 86 % (40-80) H 08/26/16 06:15 Lymphocytes 6 % (20-50) L 08/26/16 06:15 Monocytes 5 % (2-10) 08/26/16 06:15 Eosinophils 2 % (0-5) 08/26/16 06:15 Basophils 1 % (0-3) 08/25/16 06:40 Platelet Estimate ADEQUATE (NORMAL) 08/26/16 06:15 Platelet Morphology NORMAL (NORMAL) 08/26/16 06:15 Polychromasia 1+ 08/25/16 06:40 Anisocytosis 1+ 08/26/16 06:15 RBC Morph Micro Appear ABNORMAL (NORMAL) 08/26/16 06:15 PT 11.3 SECONDS (9.5-11.5) 08/31/16 06:30 INR 1.09 (0.5-1.4) 08/31/16 06:30 PTT (Actin FS) 26.1 SECONDS (26.0-38.0) 08/31/16 06:30 Sodium 135 mEq/L (136-145) L 08/31/16 06:30 Potassium 4.5 mEq/L (3.5-5.1) 08/31/16 06:30 Chloride 99 mEq/L (98-107) 08/31/16 06:30 Carbon Dioxide 24.8 mEq/L (21.0-31.0) 08/31/16 06:30 Anion Gap 15.7 (7.0-16.0) 08/31/16 06:30 BUN 26 mg/dL (7-25) H 08/31/16 06:30 Creatinine 6.4 mg/dL (0.7-1.3) H* 08/31/16 06:30 Est GFR ( Amer) 11.5 ml/min (>90) 08/31/16 06:30 Est GFR (Non-Af Amer) 9.5 ml/min 08/31/16 06:30 BUN/Creatinine Ratio 4.1 08/31/16 06:30 Glucose 282 mg/dL (70-105) H 08/31/16 06:30 POC Glucose 261 MG/DL (70 - 105) H 08/31/16 05:24 Hemoglobin A1c % 7.8 % (4.0-6.0) H 08/23/16 20:29 Uric Acid 8.5 mg/dL (4.4-7.6) H 08/24/16 06:12 Calcium 8.9 mg/dL (8.6-10.3) 08/31/16 06:30 Phosphorus 5.4 mg/dL (2.5-5.0) H 08/24/16 06:12 Magnesium 2.0 mg/dL (1.9-2.7) 08/24/16 06:12 Total Bilirubin 0.3 mg/dL (0.3-1.0) 08/31/16 06:30 AST 14 U/L (13-39) 08/31/16 06:30 ALT 13 U/L (7-52) 08/31/16 06:30 Alkaline Phosphatase 217 U/L (34-104) H 08/31/16 06:30 Total Protein 6.4 gm/dL (6.0-8.3) 08/31/16 06:30 Albumin 2.9 gm/dL (4.2-5.5) L 08/31/16 06:30 Globulin 3.5 gm/dL 08/31/16 06:30 Albumin/Globulin Ratio 0.8 (1.0-1.8) L 08/31/16 06:30 Triglycerides 90 mg/dL (<150) 08/24/16 06:12 Cholesterol 73 mg/dL (<200) 08/24/16 06:12 LDL Cholesterol Direct 25 mg/dL (75-193) L 08/24/16 06:12 HDL Cholesterol 28 mg/dL (23-92) 08/24/16 06:12 Amylase 14 U/L (29-103) L 08/25/16 06:40 Lipase 20 U/L (11-82) 08/24/16 06:12 Vitamin B12 1646 pg/mL (211-946) H 08/24/16 06:12 Vitamin D 25-Hydroxy 5.9 ng/mL (30.0-100.0) L 08/24/16 06:12 Free T4 0.91 ng/dL (0.82-1.77) 08/24/16 06:12 TSH 0.93 uIU/ml (0.34-5.60) 08/24/16 06:12 Urine Source CLEAN C 08/28/16 15:25 Urine Color YELLOW 08/28/16 15:25 Urine Clarity CLEAR (CLEAR) 08/28/16 15:25 Urine pH 8.5 08/28/16 15:25 Ur Specific [place] 1.020 (1.005-1.030) 08/28/16 15:25 Urine Protein >300 mg/dL (NEGATIVE) H 08/28/16 15:25 Urine Glucose (UA) 250 mg/dL (NEGATIVE) H 08/28/16 15:25 Urine Ketones TRACE mg/dL (NEGATIVE) 08/28/16 15:25 Urine Blood TRACE (NEGATIVE) 08/28/16 15:25 Urine Nitrate NEGATIVE (NEGATIVE) 08/28/16 15:25 Urine Bilirubin NEGATIVE (NEGATIVE) 08/28/16 15:25 Urine Urobilinogen 0.2 E.U./dL (0.2 - 1.0) 08/28/16 15:25 Ur Leukocyte Esterase NEGATIVE (NEGATIVE) 08/28/16 15:25 Urine RBC 0-2 /hpf (0-5) H 08/28/16 15:25 Urine WBC 2-5 /hpf (0-5) H 08/28/16 15:25 Ur Epithelial Cells RARE /lpf (FEW) 08/28/16 15:25 Urine Bacteria OCCASIONAL /hpf (NONE SEEN) 08/28/16 15:25 Random Vancomycin 18.2 ug/mL (5.0-40.0) 08/30/16 06:48 Hepatitis A IgM Ab Negative (Negative) 08/26/16 06:15 Hep Bs Antigen Negative (Negative) 08/26/16 06:15 Hep B Core IgM Ab Negative (Negative) 08/26/16 06:15 Hepatitis C Antibody <0.1 s/co ratio (0.0-0.9) 08/26/16 06:15 - Physical Exam Vitals and I&O: Vital Signs Temp 98.4 F 08/31/16 04:00 Pulse 71 08/31/16 04:00 Resp 19 08/31/16 04:00 BP 153/66 08/31/16 04:00 Pulse Ox 99 08/31/16 04:00 Intake & Output 08/30/16 08/31/16 08/31/16 18:59 06:59 18:59 Intake Total 950 150 Balance 950 150 Intake: Oral 950 150 Other: # Voids 4 # Bowel Movements 1 Active Medications: Current Medications Acetaminophen (Tylenol) 650 mg PO Q4H PRN PRN Reason: fever Stop: 10/22/16 19:59 Last Admin: 08/28/16 10:22 Dose: 650 mg Calcium Acetate (Phoslo) 667 mg PO TIDWM DEB Stop: 10/23/16 16:59 Last Admin: 08/30/16 16:53 Dose: 667 mg Epoetin Tejas (Epogen) 10,000 units SUBQ MoWeFr [facility] Stop: 10/23/16 14:14 Last Admin: 08/28/16 13:23 Dose: 10,000 units Hydromorphone HCl (Dilaudid) 1 mg IVP Q4HR PRN PRN Reason: Severe Pain Stop: 10/26/16 19:58 Last Admin: 08/30/16 21:49 Dose: 1 mg Sodium Chloride (Nacl 0.9%) 1,000 mls @ 75 mls/hr IV .[id number] [facility] Stop: 10/29/16 22:14 Last Admin: 08/30/16 22:18 Dose: 75 mls/hr Lactated Ringer's (Lactated Ringer) 1,000 mls @ 0 mls/hr IV .Q0M DEB PRN Reason: TKO Stop: 09/01/16 08:14 Insulin Aspart (Novolog Insulin Sliding Scale) 0 units SUBQ ACHS DEB PRN Reason: Protocol Stop: 10/23/16 07:29 Last Admin: 08/31/16 07:55 Dose: Not Given Insulin Human Isoph/Insulin Regular (Novolin 70/30) 6 units SUBQ QDAC DEB PRN Reason: Protocol Stop: 10/28/16 07:29 Last Admin: 08/31/16 07:56 Dose: Not Given Meperidine HCl (Demerol) 12.5 mg IVP UD PRN PRN Reason: POST-OP PAIN Stop: 09/01/16 08:07 Miscellaneous (Clinical Monitoring) 1 ea DAILY PRN PRN Reason: RENAL Stop: 10/23/16 08:19 Miscellaneous (Vancomycin Iv Per Pharmacy) 1 ea PRN PRN PRN Reason: PROTOCOL Stop: 10/23/16 14:11 Ondansetron HCl (Zofran) 4 mg IV Q4H PRN PRN Reason: Nausea / Vomiting Stop: 10/24/16 18:51 Last Admin: 08/29/16 13:22 Dose: 4 mg Ondansetron HCl (Zofran) 4 mg IV X1 PRN PRN Reason: Nausea / Vomiting Stop: 09/01/16 08:07 Tramadol HCl (Ultram) 50 mg PO Q4HR PRN PRN Reason: Pain (Moderate) Stop: 10/27/16 09:02 Last Admin: 08/30/16 08:58 Dose: 50 mg - Procedures Procedures: Procedures Procedure Code Date AMPUTATION THRU METATARSAL 30846 08/23/16 DETACHMENT AT RIGHT FOOT, PARTIAL 1ST RAY, OPEN APPROACH [id number] 08/23/16 DETACHMENT AT RIGHT FOOT, PARTIAL 2ND RAY, OPEN APPROACH [id number] 08/23/16 Nutritional Asmnt/Malnutr-PDOC - Dietary Evaluation Malnutrition Findings (Please click <Entered> for more info): Nutritional Asmnt/Malnutrition Start: 08/25/16 15: 01 Text: Status: Active Freq: Document 08/25/16 15:01 RADHA (Rec: 08/25/16 15:18 RADHA [email or web address]) Nutritional Asmnt/Malnutrition Patient General Information Nutritional Screening Consult Diagnosis Sepsis secondary to foot ulcer Pertinent Medical Hx/Surgical Hx DM, HTN, ESRD on HD Subjective Information 60 year old male from home with caregiver. RD consult for chronic wounds. Pt was alert with family at bedside during visit. Avg PO intake 100% of meals. Pt stated good appetite , would like more food. Pt expressed preference for fruits, RD explained consistant carb. RD vriefly discussed CCHO and renal diet. Pt does not wish to go in further detail at this time, stating he has a caregiver and speaks to a dietitian at HD center. Pt report UBW dry weight 88kg/193.6lb, denied recent weight changes. Current Diet Order/ Nutrition Support Renal, [id number] Pertinent Medications Epogen, Novolog, Vancomycin Pertinent Labs 08/23: A1c 7.8H 08/25: creatinine 4.6H, glucose 163H Nutritional Hx/Data Height 1.75 m Height (Calculated Centimeters) 175.3 Current Weight (lbs) 81.647 kg Weight (Calculated Kilograms) 81.6 Weight (Calculated Grams) 27857.6 Usual body Weight (lbs) 194 [place] Body Weight 160 Recent Weight Change No Weight Status Overweight GI Symptoms Skin Integrity/Comment: Filippo Gonzalez. Woudn care 08/24: chronic wound on right foot. Current %PO Good (75-100%) Estimated Nutritional Goals Calories/Kcals/Kg IBW 160lb/72.7kg Kcals Calculated 2181-2545kcal (30-35kcal/kg) Protein g/kg: IBW Protein Calculated 102-124g (1.4-1.7g/kg) Fluid: ml Per MD (ERDS on HD) Nutritional Problem 1. Problem Problem Increased kcal and prot needs related to Etiology hypermetabolic state Signs/Symptoms: H&P: sepsis secondary to foot ulcer, ESRD on HD Intervention/Recommendation Comments 1. Recommend [id number] due to pt is in hypermetbaolic state on HD and expressed hunger. Expected Outcomes/Goals Expected Outcomes/Goals 1. PO intake continue to meet at least 75% of estimated nutritional needs. 2. Provided brief edu on current diet, CCHO and renal. Pt does not wish to discuss further in detail as pt has a caregiver and speaks to a dietitan at HD center. RD made sure pt knows RD's availability if he should have any questions.
--- NOTE | 2016-08-31 09:15 | Operative Report ---
DATE OF SURGERY: 08/31/2016 PREOPERATIVE DIAGNOSES: 1. Gangrene, right foot. 2. End-stage renal disease. 3. Diabetes mellitus. 4. Peripheral vascular disease. POSTOPERATIVE DIAGNOSES: 1. Gangrene, right foot. 2. End-stage renal disease. 3. Diabetes mellitus. 4. Peripheral vascular disease. OPERATION DONE: Transmetatarsal amputation, right foot. SURGEON: Len Ulrich M.D. ANESTHESIA: Spinal. ANESTHESIOLOGIST: Roland Dodge M.D. ESTIMATED BLOOD LOSS: 50 mL. OPERATIVE FINDINGS: No purulent material at the site of transmetatarsal amputation. Blood flow appears to be adequate. Cultures were taken and stump reprepped with Betadine. DESCRIPTION OF PROCEDURE: The patient was given spinal anesthesia. The right lower extremity was prepped with Betadine and draped in appropriate manner. The foot was encased in Ioban. An incision was made on dorsum of the foot and the muscles and tendons were transected. The metatarsals were then transected following satisfactory hemostasis. At the plantar aspect, the incision was carried out just beyond the previous insertion. Again, no previous infection was noted. Bleeders were coagulated. Additional bone was transected to allow for the closure of the stump. Cultures were taken and the stump again reprepped with Betadine. The incision was closed with a Gordon-Collins drain. The fascia was closed with interrupted sutures of #1 Vicryl and the skin was closed with woodrow. Compression dressing was placed over this. The patient tolerated the procedure well. [facility]# [id number]
[2016-08-31] MEDS: HYDROmorphone 1 mg/mL 1mL Syr IVP PRN (10:40)
--- NOTE | 2016-08-31 12:21 | Diagnostic Imaging Report ---
Right upper extremity Doppler venous ultrasound exam HISTORY: Pain Sonographic sector images were obtained through the venous system of the right arm. Associated Doppler data was obtained. The exam is technically limited due to lack of patient cooperation and pain. Sonographic sector images were obtained through the venous systems of the right arm. Associated Doppler data was obtained. Despite the above limitations, there appears to be patency of the right internal jugular, subclavian, axillary, brachial, basilic, and cephalic veins. No thrombus is seen. Normal compressibility and augmentation responses. IMPRESSION: 1. Somewhat limited exam due to patient pain and difficulty in cooperation. 2. No definite evidence of thrombophlebitis
--- NOTE | 2016-08-31 12:51 | Pathology Report ---
[id number] Collection date: 08/27/2016 Surgeon: Dr. Damaris Harrington Specimen Description: Right great toe and second toe amputation. Gross Description: Received in formalin is a 10 x 4.5 x 4.0 cm right distal foot amputation specimen of the right first and second toes with the transection located at the MP joint. There is a large grayish black deep ulcer measuring 6.5 x 3.5 cm covering the base of the first and second toes. Sectioning shows ulceration and necrosis extending into the deep subcutaneous soft tissues. [employer] sections are submitted in one cassette. Microscopic Description: The histologic sections show ulcerated skin and subcutaneous soft tissue with extensive acute suppurative inflammation consisting of large collections of neutrophils with a very necrotic background. There is extensive necrosis appreciated throughout the specimen. Diagnosis: Ulcerated necrotic tissue consistent with gangrene (right great toe and second toe amputation). [facility]# [id number] MTDD
[2016-08-31] MEDS: HYDROmorphone 2 mg/mL 1mL Vial IVP PRN ×3 (13:29→22:56)
--- NOTE | 2016-08-31 13:51 | General Progress Note ---
Subjective - Review of Systems Service Date: 08/31/16 Subjective: alert, occ pain right foot, currently being dialyzed Objective - Results Result Diagrams: 08/31/16 06:30 08/31/16 06:30 Recent Labs: Laboratory Last Values WBC 10.7 Th/cmm (4.8-10.8) 08/31/16 06:30 RBC 2.79 Mil/cmm (4.30-5.70) L 08/31/16 06:30 Hgb 8.3 gm/dL (13.2-17.3) L 08/31/16 06:30 Hct 24.6 % (39.0-49.0) L 08/31/16 06:30 MCV 88.2 fl (80-99) 08/31/16 06:30 MCH 29.8 pg (26.0-30.0) 08/31/16 06:30 MCHC Differential 33.8 pg (28.0-36.0) 08/31/16 06:30 RDW 14.1 % (11.5-20.0) 08/31/16 06:30 Plt Count 271 Th/cmm (150-400) 08/31/16 06:30 MPV 6.4 fl 08/31/16 06:30 Neutrophils % 81.0 % (40.0-80.0) H 08/31/16 06:30 Band Neutrophils % 1 % (0-10) 08/26/16 06:15 Lymphocytes % 10.5 % (20.0-50.0) L 08/31/16 06:30 Monocytes % 5.2 % (2.0-10.0) 08/31/16 06:30 Eosinophils % 2.3 % (0.0-5.0) 08/31/16 06:30 Basophils % 1.0 % (0.0-2.0) 08/31/16 06:30 Neutrophils (Manual) 86 % (40-80) H 08/26/16 06:15 Lymphocytes 6 % (20-50) L 08/26/16 06:15 Monocytes 5 % (2-10) 08/26/16 06:15 Eosinophils 2 % (0-5) 08/26/16 06:15 Basophils 1 % (0-3) 08/25/16 06:40 Platelet Estimate ADEQUATE (NORMAL) 08/26/16 06:15 Platelet Morphology NORMAL (NORMAL) 08/26/16 06:15 Polychromasia 1+ 08/25/16 06:40 Anisocytosis 1+ 08/26/16 06:15 RBC Morph Micro Appear ABNORMAL (NORMAL) 08/26/16 06:15 PT 11.3 SECONDS (9.5-11.5) 08/31/16 06:30 INR 1.09 (0.5-1.4) 08/31/16 06:30 PTT (Actin FS) 26.1 SECONDS (26.0-38.0) 08/31/16 06:30 Sodium 135 mEq/L (136-145) L 08/31/16 06:30 Potassium 4.5 mEq/L (3.5-5.1) 08/31/16 06:30 Chloride 99 mEq/L (98-107) 08/31/16 06:30 Carbon Dioxide 24.8 mEq/L (21.0-31.0) 08/31/16 06:30 Anion Gap 15.7 (7.0-16.0) 08/31/16 06:30 BUN 26 mg/dL (7-25) H 08/31/16 06:30 Creatinine 6.4 mg/dL (0.7-1.3) H* 08/31/16 06:30 Est GFR ( Amer) 11.5 ml/min (>90) 08/31/16 06:30 Est GFR (Non-Af Amer) 9.5 ml/min 08/31/16 06:30 BUN/Creatinine Ratio 4.1 08/31/16 06:30 Glucose 282 mg/dL (70-105) H 08/31/16 06:30 POC Glucose 239 MG/DL (70 - 105) H 08/31/16 11:20 Hemoglobin A1c % 7.8 % (4.0-6.0) H 08/23/16 20:29 Uric Acid 8.5 mg/dL (4.4-7.6) H 08/24/16 06:12 Calcium 8.9 mg/dL (8.6-10.3) 08/31/16 06:30 Phosphorus 5.4 mg/dL (2.5-5.0) H 08/24/16 06:12 Magnesium 2.0 mg/dL (1.9-2.7) 08/24/16 06:12 Total Bilirubin 0.3 mg/dL (0.3-1.0) 08/31/16 06:30 AST 14 U/L (13-39) 08/31/16 06:30 ALT 13 U/L (7-52) 08/31/16 06:30 Alkaline Phosphatase 217 U/L (34-104) H 08/31/16 06:30 Total Protein 6.4 gm/dL (6.0-8.3) 08/31/16 06:30 Albumin 2.9 gm/dL (4.2-5.5) L 08/31/16 06:30 Globulin 3.5 gm/dL 08/31/16 06:30 Albumin/Globulin Ratio 0.8 (1.0-1.8) L 08/31/16 06:30 Triglycerides 90 mg/dL (<150) 08/24/16 06:12 Cholesterol 73 mg/dL (<200) 08/24/16 06:12 LDL Cholesterol Direct 25 mg/dL (75-193) L 08/24/16 06:12 HDL Cholesterol 28 mg/dL (23-92) 08/24/16 06:12 Amylase 14 U/L (29-103) L 08/25/16 06:40 Lipase 20 U/L (11-82) 08/24/16 06:12 Vitamin B12 1646 pg/mL (211-946) H 08/24/16 06:12 Vitamin D 25-Hydroxy 5.9 ng/mL (30.0-100.0) L 08/24/16 06:12 Free T4 0.91 ng/dL (0.82-1.77) 08/24/16 06:12 TSH 0.93 uIU/ml (0.34-5.60) 08/24/16 06:12 Urine Source CLEAN C 08/28/16 15:25 Urine Color YELLOW 08/28/16 15:25 Urine Clarity CLEAR (CLEAR) 08/28/16 15:25 Urine pH 8.5 08/28/16 15:25 Ur Specific [place] 1.020 (1.005-1.030) 08/28/16 15:25 Urine Protein >300 mg/dL (NEGATIVE) H 08/28/16 15:25 Urine Glucose (UA) 250 mg/dL (NEGATIVE) H 08/28/16 15:25 Urine Ketones TRACE mg/dL (NEGATIVE) 08/28/16 15:25 Urine Blood TRACE (NEGATIVE) 08/28/16 15:25 Urine Nitrate NEGATIVE (NEGATIVE) 08/28/16 15:25 Urine Bilirubin NEGATIVE (NEGATIVE) 08/28/16 15:25 Urine Urobilinogen 0.2 E.U./dL (0.2 - 1.0) 08/28/16 15:25 Ur Leukocyte Esterase NEGATIVE (NEGATIVE) 08/28/16 15:25 Urine RBC 0-2 /hpf (0-5) H 08/28/16 15:25 Urine WBC 2-5 /hpf (0-5) H 08/28/16 15:25 Ur Epithelial Cells RARE /lpf (FEW) 08/28/16 15:25 Urine Bacteria OCCASIONAL /hpf (NONE SEEN) 08/28/16 15:25 Random Vancomycin 18.2 ug/mL (5.0-40.0) 08/30/16 06:48 Hepatitis A IgM Ab Negative (Negative) 08/26/16 06:15 Hep Bs Antigen Negative (Negative) 08/26/16 06:15 Hep B Core IgM Ab Negative (Negative) 08/26/16 06:15 Hepatitis C Antibody <0.1 s/co ratio (0.0-0.9) 08/26/16 06:15 - Physical Exam Vitals and I&O: Vital Signs Temp 99.0 F 08/31/16 08:00 Pulse 74 08/31/16 08:00 Resp 20 08/31/16 08:00 BP 129/75 08/31/16 08:00 Pulse Ox 98 08/31/16 08:00 Intake & Output 08/30/16 08/31/16 08/31/16 18:59 06:59 18:59 Intake Total 950 150 0 Balance 950 150 0 Intake: Oral 950 150 0 Other: # Voids 4 # Bowel Movements 1 Active Medications: Current Medications Acetaminophen (Tylenol) 650 mg PO Q4H PRN PRN Reason: fever Stop: 10/22/16 19:59 Last Admin: 08/28/16 10:22 Dose: 650 mg Calcium Acetate (Phoslo) 667 mg PO TIDWM DEB Stop: 10/23/16 16:59 Last Admin: 08/31/16 11:28 Dose: 667 mg Epoetin Tejas (Epogen) 10,000 units SUBQ MoWeFr [facility] Stop: 10/23/16 14:14 Last Admin: 08/28/16 13:23 Dose: 10,000 units Hydromorphone HCl (Dilaudid) 2 mg IVP Q4HR PRN PRN Reason: Severe Pain Stop: 10/30/16 13:07 Last Admin: 08/31/16 13:29 Dose: 2 mg Sodium Chloride (Nacl 0.9%) 1,000 mls @ 75 mls/hr IV .[id number] [facility] Stop: 10/29/16 22:14 Last Admin: 08/30/16 22:18 Dose: 75 mls/hr Lactated Ringer's (Lactated Ringer) 1,000 mls @ 0 mls/hr IV .Q0M DEB PRN Reason: TKO Stop: 08/31/16 15:00 Insulin Aspart (Novolog Insulin Sliding Scale) 0 units SUBQ ACHS DEB PRN Reason: Protocol Stop: 10/23/16 07:29 Last Admin: 08/31/16 11:30 Dose: 2 units Insulin Human Isoph/Insulin Regular (Novolin 70/30) 6 units SUBQ QDAC DEB PRN Reason: Protocol Stop: 10/28/16 07:29 Last Admin: 08/31/16 07:56 Dose: Not Given Meperidine HCl (Demerol) 12.5 mg IVP UD PRN PRN Reason: POST-OP PAIN Stop: 08/31/16 15:00 Miscellaneous (Clinical Monitoring) 1 ea DAILY PRN PRN Reason: RENAL Stop: 10/23/16 08:19 Miscellaneous (Vancomycin Iv Per Pharmacy) 1 ea PRN PRN PRN Reason: PROTOCOL Stop: 10/23/16 14:11 Ondansetron HCl (Zofran) 4 mg IV Q4H PRN PRN Reason: Nausea / Vomiting Stop: 10/24/16 18:51 Last Admin: 08/29/16 13:22 Dose: 4 mg Ondansetron HCl (Zofran) 4 mg IV UD PRN PRN Reason: Nausea / Vomiting Stop: 08/31/16 15:00 Tramadol HCl (Ultram) 50 mg PO Q4HR PRN PRN Reason: Pain (Moderate) Stop: 10/27/16 09:02 Last Admin: 08/31/16 11:52 Dose: 50 mg General: Alert, Mild distress HEENT: Atraumatic, Mucous membr. moist/pink Neck: Supple, +2 carotid pulse wo bruit Cardiovascular: Regular rate, Normal S1, Normal S2 Lungs: Clear to auscultation Abdomen: Bowel sounds, Soft Extremities: no Edema Neurological: Sensation intact Skin: no Rash Psych/Mental Status: Mood NL - Procedures Procedures: Procedures Procedure Code Date AMPUTATION THRU METATARSAL 43347 08/23/16 DETACHMENT AT RIGHT FOOT, PARTIAL 1ST RAY, OPEN APPROACH [id number] 08/23/16 DETACHMENT AT RIGHT FOOT, PARTIAL 2ND RAY, OPEN APPROACH [id number] 08/23/16 DETACHMENT AT RIGHT FOOT, PARTIAL 3RD RAY, OPEN APPROACH [id number] 08/23/16 DETACHMENT AT RIGHT FOOT, PARTIAL 4TH RAY, OPEN APPROACH [id number] 08/23/16 DETACHMENT AT RIGHT FOOT, PARTIAL 5TH RAY, OPEN APPROACH [id number] 08/23/16 Assessment/Plan - Assessment Assessment: ESRD on HD Met Enceph 2nd hypolglycemia Sepsis 2nd to Infected, Necrotic right foot ulcer DM2 Ess Htn Anemia of CKD B/L PAD S/P 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 S/P right TMA - Plan Plan: Lab - Result Diagrams 08/25/16 06:40 08/25/16 06:40 Current Medications Acetaminophen (Tylenol) 650 mg PO Q4H PRN PRN Reason: fever Stop: 10/22/16 19:59 Last Admin: 08/25/16 00:07 Dose: 650 mg Calcium Acetate (Phoslo) 667 mg PO TIDWM [facility] Stop: 10/23/16 16:59 Last Admin: 08/25/16 16:15 Dose: 667 mg Epoetin Tejas (Epogen) 10,000 units SUBQ MoWeFr [facility] Stop: 10/23/16 14:14 Last Admin: 08/24/16 16:24 Dose: 10,000 units Hydromorphone HCl (Dilaudid) 1 mg IVP Q6HR PRN PRN Reason: Pain (Moderate) Stop: 10/22/16 19:59 Last Admin: 08/25/16 11:50 Dose: 1 mg Ceftriaxone Sodium 1 gm/ (Sodium Chloride) 50 mls @ 100 mls/hr IV Q24HR DEB Stop: 10/22/16 20:59 Last Admin: 08/24/16 20:48 Dose: 100 mls/hr Insulin Aspart (Novolog Insulin Sliding Scale) 0 units SUBQ ACHS DEB PRN Reason: Protocol Stop: 10/23/16 07:29 Last Admin: 08/25/16 11:51 Dose: 1,000 units Miscellaneous (Clinical Monitoring) 1 ea MC DAILY PRN PRN Reason: RENAL Stop: 10/23/16 08:19 Miscellaneous (Vancomycin Iv Per Pharmacy) 1 ea MC PRN PRN PRN Reason: PROTOCOL Stop: 10/23/16 14:11 currently being dialyzed continue Rocephin Right HODAN 1, Left HODAN 0.8 not indicative of severe PAD Pt. had right TMA w/ CHOCO drain Nutritional Asmnt/Malnutr-PDOC - Dietary Evaluation Malnutrition Findings (Please click <Entered> for more info): Nutritional Asmnt/Malnutrition Start: 08/25/16 15: 01 Text: Status: Active Freq: Document 08/25/16 15:01 GSUN (Rec: 08/25/16 15:18 GSUN [id number]) Nutritional Asmnt/Malnutrition Patient General Information Nutritional Screening Consult Diagnosis Sepsis secondary to foot ulcer Pertinent Medical Hx/Surgical Hx DM, HTN, ESRD on HD Subjective Information 60 year old male from home with caregiver. RD consult for chronic wounds. Pt was alert with family at bedside during visit. Avg PO intake 100% of meals. Pt stated good appetite , would like more food. Pt expressed preference for fruits, RD explained consistant carb. RD vriefly discussed CCHO and renal diet. Pt does not wish to go in further detail at this time, stating he has a caregiver and speaks to a dietitian at HD center. Pt report UBW dry weight 88kg/193.6lb, denied recent weight changes. Current Diet Order/ Nutrition Support Renal, [id number] Pertinent Medications Epogen, Novolog, Vancomycin Pertinent Labs 08/23: A1c 7.8H 08/25: creatinine 4.6H, glucose 163H Nutritional Hx/Data Height 1.75 m Height (Calculated Centimeters) 175.3 Current Weight (lbs) 81.647 kg Weight (Calculated Kilograms) 81.6 Weight (Calculated Grams) 39395.6 Usual body Weight (lbs) 194 [place] Body Weight 160 Recent Weight Change No Weight Status Overweight GI Symptoms Skin Integrity/Comment: Filippo 16. Woudn care 08/24: chronic wound on right foot. Current %PO Good (75-100%) Estimated Nutritional Goals Calories/Kcals/Kg IBW 160lb/72.7kg Kcals Calculated 2181-2545kcal (30-35kcal/kg) Protein g/kg: IBW Protein Calculated 102-124g (1.4-1.7g/kg) Fluid: ml Per MD (ERDS on HD) Nutritional Problem 1. Problem Problem Increased kcal and prot needs related to Etiology hypermetabolic state Signs/Symptoms: H&P: sepsis secondary to foot ulcer, ESRD on HD Intervention/Recommendation Comments 1. Recommend [id number] due to pt is in hypermetbaolic state on HD and expressed hunger. Expected Outcomes/Goals Expected Outcomes/Goals 1. PO intake continue to meet at least 75% of estimated nutritional needs. 2. Provided brief edu on current diet, CCHO and renal. Pt does not wish to discuss further in detail as pt has a caregiver and speaks to a dietitan at HD center. RD made sure pt knows RD's availability if he should have any questions.
[2016-08-31] MEDS: Epoetin Alfa 20000 Units/mL Vial SUBQ SCH (17:25)
[2016-09-01] MEDS: INSULIN ASPART SLIDING SCALE 100 UNITS/ML UNIT SUBQ SCH ×3 (06:36→18:12)
[2016-09-01] MEDS: HYDROmorphone 2 mg/mL 1mL Vial IVP PRN ×3 (06:56→14:10)
[2016-09-01 07:24] LABS: % BASOPHILS 1.3 % (0.0-2.0); % EOSINOPHILS 2.7 % (0.0-5.0); HEMATOCRIT 26.2 % (39.0-49.0); HEMOGLOBIN 8.8 gm/dL (13.2-17.3); MEAN CELL VOLUME 88.7 fl (80-99); MEAN CORPUSCULAR HEMOGLOBIN 29.8 pg (26.0-30.0); MEAN CORPUSCULAR HGB CONC 33.6 pg (28.0-36.0); MEAN PLATELET VOLUME 7.3 fl; NEUTROPHILE ABSOLUTE 7.9 Th/cmm (1.8-8.0); PLATELET COUNT 264 Th/cmm (150-400); RED BLOOD COUNT 2.95 Mil/cmm (4.30-5.70); RED CELL DISTRIBUTION WIDTH 13.6 % (11.5-20.0); WHITE BLOOD COUNT 10.2 Th/cmm (4.8-10.8)
[2016-09-01] MEDS ORDERED: INSULIN 70/30 100 UNITS/ML SUBQ SCH (07:30)
[2016-09-01 07:38] LABS: ALB/GLOB RATIO 0.9 (1.0-1.8); ANION GAP 12.8 (7.0-16.0); BILIRUBIN,TOTAL 0.4 mg/dL (0.3-1.0); BUN/CREATININE RATIO 3.6; CARBON DIOXIDE 31.3 mEq/L (21.0-31.0); POTASSIUM SERUM 4.1 mEq/L (3.5-5.1)
[2016-09-01 07:41] LABS: CREATININE - SERUM 4.5 mg/dL (0.7-1.3)
--- NOTE | 2016-09-01 09:23 | General Progress Note ---
Subjective - Review of Systems Service Date: 09/01/16 Subjective: I fell better Objective - Results Result Diagrams: 09/01/16 06:10 09/01/16 06:10 Recent Labs: Laboratory Last Values WBC 10.2 Th/cmm (4.8-10.8) 09/01/16 06:10 RBC 2.95 Mil/cmm (4.30-5.70) L 09/01/16 06:10 Hgb 8.8 gm/dL (13.2-17.3) L 09/01/16 06:10 Hct 26.2 % (39.0-49.0) L 09/01/16 06:10 MCV 88.7 fl (80-99) 09/01/16 06:10 MCH 29.8 pg (26.0-30.0) 09/01/16 06:10 MCHC Differential 33.6 pg (28.0-36.0) 09/01/16 06:10 RDW 13.6 % (11.5-20.0) 09/01/16 06:10 Plt Count 264 Th/cmm (150-400) 09/01/16 06:10 MPV 7.3 fl 09/01/16 06:10 Neutrophils % 77.0 % (40.0-80.0) 09/01/16 06:10 Band Neutrophils % 1 % (0-10) 08/26/16 06:15 Lymphocytes % 11.0 % (20.0-50.0) L 09/01/16 06:10 Monocytes % 8.0 % (2.0-10.0) 09/01/16 06:10 Eosinophils % 2.7 % (0.0-5.0) 09/01/16 06:10 Basophils % 1.3 % (0.0-2.0) 09/01/16 06:10 Neutrophils (Manual) 86 % (40-80) H 08/26/16 06:15 Lymphocytes 6 % (20-50) L 08/26/16 06:15 Monocytes 5 % (2-10) 08/26/16 06:15 Eosinophils 2 % (0-5) 08/26/16 06:15 Basophils 1 % (0-3) 08/25/16 06:40 Platelet Estimate ADEQUATE (NORMAL) 08/26/16 06:15 Platelet Morphology NORMAL (NORMAL) 08/26/16 06:15 Polychromasia 1+ 08/25/16 06:40 Anisocytosis 1+ 08/26/16 06:15 RBC Morph Micro Appear ABNORMAL (NORMAL) 08/26/16 06:15 PT 11.3 SECONDS (9.5-11.5) 08/31/16 06:30 INR 1.09 (0.5-1.4) 08/31/16 06:30 PTT (Actin FS) 26.1 SECONDS (26.0-38.0) 08/31/16 06:30 Sodium 138 mEq/L (136-145) 09/01/16 06:10 Potassium 4.1 mEq/L (3.5-5.1) 09/01/16 06:10 Chloride 98 mEq/L (98-107) 09/01/16 06:10 Carbon Dioxide 31.3 mEq/L (21.0-31.0) H 09/01/16 06:10 Anion Gap 12.8 (7.0-16.0) 09/01/16 06:10 BUN 16 mg/dL (7-25) 09/01/16 06:10 Creatinine 4.5 mg/dL (0.7-1.3) H* 09/01/16 06:10 Est GFR ( Amer) 17.2 ml/min (>90) 09/01/16 06:10 Est GFR (Non-Af Amer) 14.2 ml/min 09/01/16 06:10 BUN/Creatinine Ratio 3.6 09/01/16 06:10 Glucose 189 mg/dL (70-105) H 09/01/16 06:10 POC Glucose 170 MG/DL (70 - 105) H 09/01/16 05:42 Hemoglobin A1c % 7.8 % (4.0-6.0) H 08/23/16 20:29 Uric Acid 8.5 mg/dL (4.4-7.6) H 08/24/16 06:12 Calcium 9.0 mg/dL (8.6-10.3) 09/01/16 06:10 Phosphorus 5.4 mg/dL (2.5-5.0) H 08/24/16 06:12 Magnesium 2.0 mg/dL (1.9-2.7) 08/24/16 06:12 Total Bilirubin 0.4 mg/dL (0.3-1.0) 09/01/16 06:10 AST 15 U/L (13-39) 09/01/16 06:10 ALT 10 U/L (7-52) 09/01/16 06:10 Alkaline Phosphatase 204 U/L (34-104) H 09/01/16 06:10 Total Protein 6.5 gm/dL (6.0-8.3) 09/01/16 06:10 Albumin 3.1 gm/dL (4.2-5.5) L 09/01/16 06:10 Globulin 3.4 gm/dL 09/01/16 06:10 Albumin/Globulin Ratio 0.9 (1.0-1.8) L 09/01/16 06:10 Triglycerides 90 mg/dL (<150) 08/24/16 06:12 Cholesterol 73 mg/dL (<200) 08/24/16 06:12 LDL Cholesterol Direct 25 mg/dL (75-193) L 08/24/16 06:12 HDL Cholesterol 28 mg/dL (23-92) 08/24/16 06:12 Amylase 14 U/L (29-103) L 08/25/16 06:40 Lipase 20 U/L (11-82) 08/24/16 06:12 Vitamin B12 1646 pg/mL (211-946) H 08/24/16 06:12 Vitamin D 25-Hydroxy 5.9 ng/mL (30.0-100.0) L 08/24/16 06:12 Free T4 0.91 ng/dL (0.82-1.77) 08/24/16 06:12 TSH 0.93 uIU/ml (0.34-5.60) 08/24/16 06:12 Urine Source CLEAN C 08/28/16 15:25 Urine Color YELLOW 08/28/16 15:25 Urine Clarity CLEAR (CLEAR) 08/28/16 15:25 Urine pH 8.5 08/28/16 15:25 Ur Specific [place] 1.020 (1.005-1.030) 08/28/16 15:25 Urine Protein >300 mg/dL (NEGATIVE) H 08/28/16 15:25 Urine Glucose (UA) 250 mg/dL (NEGATIVE) H 08/28/16 15:25 Urine Ketones TRACE mg/dL (NEGATIVE) 08/28/16 15:25 Urine Blood TRACE (NEGATIVE) 08/28/16 15:25 Urine Nitrate NEGATIVE (NEGATIVE) 08/28/16 15:25 Urine Bilirubin NEGATIVE (NEGATIVE) 08/28/16 15:25 Urine Urobilinogen 0.2 E.U./dL (0.2 - 1.0) 08/28/16 15:25 Ur Leukocyte Esterase NEGATIVE (NEGATIVE) 08/28/16 15:25 Urine RBC 0-2 /hpf (0-5) H 08/28/16 15:25 Urine WBC 2-5 /hpf (0-5) H 08/28/16 15:25 Ur Epithelial Cells RARE /lpf (FEW) 08/28/16 15:25 Urine Bacteria OCCASIONAL /hpf (NONE SEEN) 08/28/16 15:25 Random Vancomycin 18.2 ug/mL (5.0-40.0) 08/30/16 06:48 Hepatitis A IgM Ab Negative (Negative) 08/26/16 06:15 Hep Bs Antigen Negative (Negative) 08/26/16 06:15 Hep B Core IgM Ab Negative (Negative) 08/26/16 06:15 Hepatitis C Antibody <0.1 s/co ratio (0.0-0.9) 08/26/16 06:15 - Physical Exam Vitals and I&O: Vital Signs Temp 98.6 F 09/01/16 04:00 Pulse 86 09/01/16 04:00 Resp 18 09/01/16 04:00 BP 147/69 09/01/16 04:00 Pulse Ox 99 09/01/16 04:00 Intake & Output 08/31/16 09/01/16 09/01/16 18:59 06:59 18:59 Intake Total 0 150 Output Total 28 Balance 0 122 Intake: Oral 0 150 Output: Other 28 Active Medications: Current Medications Acetaminophen (Tylenol) 650 mg PO Q4H PRN PRN Reason: fever Stop: 10/22/16 19:59 Last Admin: 08/28/16 10:22 Dose: 650 mg Calcium Acetate (Phoslo) 667 mg PO TIDWM DEB Stop: 10/23/16 16:59 Last Admin: 09/01/16 08:14 Dose: 667 mg Hydromorphone HCl (Dilaudid) 2 mg IVP Q4HR PRN PRN Reason: Severe Pain Stop: 10/30/16 13:07 Last Admin: 09/01/16 06:56 Dose: 2 mg Insulin Aspart (Novolog Insulin Sliding Scale) 0 units SUBQ ACHS DEB PRN Reason: Protocol Stop: 10/23/16 07:29 Last Admin: 09/01/16 06:36 Dose: Not Given Insulin Human Isoph/Insulin Regular (Novolin 70/30) 8 units SUBQ QDAC DEB PRN Reason: Protocol Stop: 10/31/16 07:29 Last Admin: 09/01/16 06:58 Dose: 8 units Miscellaneous (Clinical Monitoring) 1 ea DAILY PRN PRN Reason: RENAL Stop: 10/23/16 08:19 Miscellaneous (Vancomycin Iv Per Pharmacy) 1 ea PRN PRN PRN Reason: PROTOCOL Stop: 10/23/16 14:11 Ondansetron HCl (Zofran) 4 mg IV Q4H PRN PRN Reason: Nausea / Vomiting Stop: 10/24/16 18:51 Last Admin: 08/29/16 13:22 Dose: 4 mg Tramadol HCl (Ultram) 50 mg PO Q4HR PRN PRN Reason: Pain (Moderate) Stop: 10/27/16 09:02 Last Admin: 09/01/16 08:14 Dose: 50 mg General: Alert, Oriented x3, Cooperative, No acute distress, Moderate distress Neck: Supple Cardiovascular: Regular rate Lungs: Clear to auscultation Abdomen: Bowel sounds, Soft Extremities: Other (surgical wound in right feet cover.) Neurological: Other (Non ambulatory at this moment) Skin: Other (Warm and dry) Psych/Mental Status: Mental status NL - Procedures Procedures: Procedures Procedure Code Date AMPUTATION THRU METATARSAL 44463 08/23/16 DETACHMENT AT RIGHT FOOT, PARTIAL 1ST RAY, OPEN APPROACH [id number] 08/23/16 DETACHMENT AT RIGHT FOOT, PARTIAL 2ND RAY, OPEN APPROACH [id number] 08/23/16 DETACHMENT AT RIGHT FOOT, PARTIAL 3RD RAY, OPEN APPROACH [id number] 08/23/16 DETACHMENT AT RIGHT FOOT, PARTIAL 4TH RAY, OPEN APPROACH [id number] 08/23/16 DETACHMENT AT RIGHT FOOT, PARTIAL 5TH RAY, OPEN APPROACH [id number] 08/23/16 Assessment/Plan - Assessment Assessment: Patient is awake, alert, calm, in no distress. Dx: Sepsis to Diabetic ulcer, DM, HTN, ESRD on HD. S/P amputation - Plan Plan: Patient in Rocephin, IV NS. Surgery was done. Will continue to monitor. Nutritional Asmnt/Malnutr-PDOC - Dietary Evaluation Malnutrition Findings (Please click <Entered> for more info): Nutritional Asmnt/Malnutrition Start: 08/25/16 15: 01 Text: Status: Active Freq: Document 08/25/16 15:01 GSUN (Rec: 08/25/16 15:18 GSUN [email or web address]) Nutritional Asmnt/Malnutrition Patient General Information Nutritional Screening Consult Diagnosis Sepsis secondary to foot ulcer Pertinent Medical Hx/Surgical Hx DM, HTN, ESRD on HD Subjective Information 60 year old male from home with caregiver. RD consult for chronic wounds. Pt was alert with family at bedside during visit. Avg PO intake 100% of meals. Pt stated good appetite , would like more food. Pt expressed preference for fruits, RD explained consistant carb. RD vriefly discussed CCHO and renal diet. Pt does not wish to go in further detail at this time, stating he has a caregiver and speaks to a dietitian at HD center. Pt report UBW dry weight 88kg/193.6lb, denied recent weight changes. Current Diet Order/ Nutrition Support Renal, [id number] Pertinent Medications Epogen, Novolog, Vancomycin Pertinent Labs 08/23: A1c 7.8H 08/25: creatinine 4.6H, glucose 163H Nutritional Hx/Data Height 1.75 m Height (Calculated Centimeters) 175.3 Current Weight (lbs) 81.647 kg Weight (Calculated Kilograms) 81.6 Weight (Calculated Grams) 20116.6 Usual body Weight (lbs) 194 [place] Body Weight 160 Recent Weight Change No Weight Status Overweight GI Symptoms Skin Integrity/Comment: Filippo 16. Woudn care 08/24: chronic wound on right foot. Current %PO Good (75-100%) Estimated Nutritional Goals Calories/Kcals/Kg IBW 160lb/72.7kg Kcals Calculated 2181-2545kcal (30-35kcal/kg) Protein g/kg: IBW Protein Calculated 102-124g (1.4-1.7g/kg) Fluid: ml Per MD (ERDS on HD) Nutritional Problem 1. Problem Problem Increased kcal and prot needs related to Etiology hypermetabolic state Signs/Symptoms: H&P: sepsis secondary to foot ulcer, ESRD on HD Intervention/Recommendation Comments 1. Recommend [id number] due to pt is in hypermetbaolic state on HD and expressed hunger. Expected Outcomes/Goals Expected Outcomes/Goals 1. PO intake continue to meet at least 75% of estimated nutritional needs. 2. Provided brief edu on current diet, CCHO and renal. Pt does not wish to discuss further in detail as pt has a caregiver and speaks to a dietitan at HD center. RD made sure pt knows RD's availability if he should have any questions.
--- NOTE | 2016-09-01 11:55 | General Progress Note ---
Subjective - Review of Systems Service Date: 09/01/16 Events since last encounter: labs ok dressing dry start PT Objective - Results Result Diagrams: 09/01/16 06:10 09/01/16 06:10 Recent Labs: Laboratory Last Values WBC 10.2 Th/cmm (4.8-10.8) 09/01/16 06:10 RBC 2.95 Mil/cmm (4.30-5.70) L 09/01/16 06:10 Hgb 8.8 gm/dL (13.2-17.3) L 09/01/16 06:10 Hct 26.2 % (39.0-49.0) L 09/01/16 06:10 MCV 88.7 fl (80-99) 09/01/16 06:10 MCH 29.8 pg (26.0-30.0) 09/01/16 06:10 MCHC Differential 33.6 pg (28.0-36.0) 09/01/16 06:10 RDW 13.6 % (11.5-20.0) 09/01/16 06:10 Plt Count 264 Th/cmm (150-400) 09/01/16 06:10 MPV 7.3 fl 09/01/16 06:10 Neutrophils % 77.0 % (40.0-80.0) 09/01/16 06:10 Band Neutrophils % 1 % (0-10) 08/26/16 06:15 Lymphocytes % 11.0 % (20.0-50.0) L 09/01/16 06:10 Monocytes % 8.0 % (2.0-10.0) 09/01/16 06:10 Eosinophils % 2.7 % (0.0-5.0) 09/01/16 06:10 Basophils % 1.3 % (0.0-2.0) 09/01/16 06:10 Neutrophils (Manual) 86 % (40-80) H 08/26/16 06:15 Lymphocytes 6 % (20-50) L 08/26/16 06:15 Monocytes 5 % (2-10) 08/26/16 06:15 Eosinophils 2 % (0-5) 08/26/16 06:15 Basophils 1 % (0-3) 08/25/16 06:40 Platelet Estimate ADEQUATE (NORMAL) 08/26/16 06:15 Platelet Morphology NORMAL (NORMAL) 08/26/16 06:15 Polychromasia 1+ 08/25/16 06:40 Anisocytosis 1+ 08/26/16 06:15 RBC Morph Micro Appear ABNORMAL (NORMAL) 08/26/16 06:15 PT 11.3 SECONDS (9.5-11.5) 08/31/16 06:30 INR 1.09 (0.5-1.4) 08/31/16 06:30 PTT (Actin FS) 26.1 SECONDS (26.0-38.0) 08/31/16 06:30 Sodium 138 mEq/L (136-145) 09/01/16 06:10 Potassium 4.1 mEq/L (3.5-5.1) 09/01/16 06:10 Chloride 98 mEq/L (98-107) 09/01/16 06:10 Carbon Dioxide 31.3 mEq/L (21.0-31.0) H 09/01/16 06:10 Anion Gap 12.8 (7.0-16.0) 09/01/16 06:10 BUN 16 mg/dL (7-25) 09/01/16 06:10 Creatinine 4.5 mg/dL (0.7-1.3) H* 09/01/16 06:10 Est GFR ( Amer) 17.2 ml/min (>90) 09/01/16 06:10 Est GFR (Non-Af Amer) 14.2 ml/min 09/01/16 06:10 BUN/Creatinine Ratio 3.6 09/01/16 06:10 Glucose 189 mg/dL (70-105) H 09/01/16 06:10 POC Glucose 136 MG/DL (70 - 105) H 09/01/16 11:08 Hemoglobin A1c % 7.8 % (4.0-6.0) H 08/23/16 20:29 Uric Acid 8.5 mg/dL (4.4-7.6) H 08/24/16 06:12 Calcium 9.0 mg/dL (8.6-10.3) 09/01/16 06:10 Phosphorus 5.4 mg/dL (2.5-5.0) H 08/24/16 06:12 Magnesium 2.0 mg/dL (1.9-2.7) 08/24/16 06:12 Total Bilirubin 0.4 mg/dL (0.3-1.0) 09/01/16 06:10 AST 15 U/L (13-39) 09/01/16 06:10 ALT 10 U/L (7-52) 09/01/16 06:10 Alkaline Phosphatase 204 U/L (34-104) H 09/01/16 06:10 Total Protein 6.5 gm/dL (6.0-8.3) 09/01/16 06:10 Albumin 3.1 gm/dL (4.2-5.5) L 09/01/16 06:10 Globulin 3.4 gm/dL 09/01/16 06:10 Albumin/Globulin Ratio 0.9 (1.0-1.8) L 09/01/16 06:10 Triglycerides 90 mg/dL (<150) 08/24/16 06:12 Cholesterol 73 mg/dL (<200) 08/24/16 06:12 LDL Cholesterol Direct 25 mg/dL (75-193) L 08/24/16 06:12 HDL Cholesterol 28 mg/dL (23-92) 08/24/16 06:12 Amylase 14 U/L (29-103) L 08/25/16 06:40 Lipase 20 U/L (11-82) 08/24/16 06:12 Vitamin B12 1646 pg/mL (211-946) H 08/24/16 06:12 Vitamin D 25-Hydroxy 5.9 ng/mL (30.0-100.0) L 08/24/16 06:12 Free T4 0.91 ng/dL (0.82-1.77) 08/24/16 06:12 TSH 0.93 uIU/ml (0.34-5.60) 08/24/16 06:12 Urine Source CLEAN C 08/28/16 15:25 Urine Color YELLOW 08/28/16 15:25 Urine Clarity CLEAR (CLEAR) 08/28/16 15:25 Urine pH 8.5 08/28/16 15:25 Ur Specific [place] 1.020 (1.005-1.030) 08/28/16 15:25 Urine Protein >300 mg/dL (NEGATIVE) H 08/28/16 15:25 Urine Glucose (UA) 250 mg/dL (NEGATIVE) H 08/28/16 15:25 Urine Ketones TRACE mg/dL (NEGATIVE) 08/28/16 15:25 Urine Blood TRACE (NEGATIVE) 08/28/16 15:25 Urine Nitrate NEGATIVE (NEGATIVE) 08/28/16 15:25 Urine Bilirubin NEGATIVE (NEGATIVE) 08/28/16 15:25 Urine Urobilinogen 0.2 E.U./dL (0.2 - 1.0) 08/28/16 15:25 Ur Leukocyte Esterase NEGATIVE (NEGATIVE) 08/28/16 15:25 Urine RBC 0-2 /hpf (0-5) H 08/28/16 15:25 Urine WBC 2-5 /hpf (0-5) H 08/28/16 15:25 Ur Epithelial Cells RARE /lpf (FEW) 08/28/16 15:25 Urine Bacteria OCCASIONAL /hpf (NONE SEEN) 08/28/16 15:25 Random Vancomycin 18.2 ug/mL (5.0-40.0) 08/30/16 06:48 Hepatitis A IgM Ab Negative (Negative) 08/26/16 06:15 Hep Bs Antigen Negative (Negative) 08/26/16 06:15 Hep B Core IgM Ab Negative (Negative) 08/26/16 06:15 Hepatitis C Antibody <0.1 s/co ratio (0.0-0.9) 08/26/16 06:15 - Physical Exam Vitals and I&O: Vital Signs Temp 98.2 F 09/01/16 08:00 Pulse 81 09/01/16 08:00 Resp 19 09/01/16 08:00 BP 134/69 09/01/16 08:00 Pulse Ox 99 09/01/16 08:00 Intake & Output 08/31/16 09/01/16 09/01/16 18:59 06:59 18:59 Intake Total 0 150 Output Total 28 Balance 0 122 Intake: Oral 0 150 Output: Other 28 Active Medications: Current Medications Acetaminophen (Tylenol) 650 mg PO Q4H PRN PRN Reason: fever Stop: 10/22/16 19:59 Last Admin: 08/28/16 10:22 Dose: 650 mg Calcium Acetate (Phoslo) 667 mg PO TIDWM DEB Stop: 10/23/16 16:59 Last Admin: 09/01/16 11:06 Dose: 667 mg Hydromorphone HCl (Dilaudid) 2 mg IVP Q4HR PRN PRN Reason: Severe Pain Stop: 10/30/16 13:07 Last Admin: 09/01/16 10:08 Dose: 2 mg Insulin Aspart (Novolog Insulin Sliding Scale) 0 units SUBQ ACHS DEB PRN Reason: Protocol Stop: 10/23/16 07:29 Last Admin: 09/01/16 06:36 Dose: Not Given Insulin Human Isoph/Insulin Regular (Novolin 70/30) 8 units SUBQ QDAC DEB PRN Reason: Protocol Stop: 10/31/16 07:29 Last Admin: 09/01/16 06:58 Dose: 8 units Miscellaneous (Clinical Monitoring) 1 ea DAILY PRN PRN Reason: RENAL Stop: 10/23/16 08:19 Miscellaneous (Vancomycin Iv Per Pharmacy) 1 ea PRN PRN PRN Reason: PROTOCOL Stop: 10/23/16 14:11 Ondansetron HCl (Zofran) 4 mg IV Q4H PRN PRN Reason: Nausea / Vomiting Stop: 10/24/16 18:51 Last Admin: 08/29/16 13:22 Dose: 4 mg Tramadol HCl (Ultram) 50 mg PO Q4HR PRN PRN Reason: Pain (Moderate) Stop: 10/27/16 09:02 Last Admin: 09/01/16 08:14 Dose: 50 mg - Procedures Procedures: Procedures Procedure Code Date AMPUTATION THRU METATARSAL 45846 08/23/16 DETACHMENT AT RIGHT FOOT, PARTIAL 1ST RAY, OPEN APPROACH [id number] 08/23/16 DETACHMENT AT RIGHT FOOT, PARTIAL 2ND RAY, OPEN APPROACH [id number] 08/23/16 DETACHMENT AT RIGHT FOOT, PARTIAL 3RD RAY, OPEN APPROACH [id number] 08/23/16 DETACHMENT AT RIGHT FOOT, PARTIAL 4TH RAY, OPEN APPROACH [id number] 08/23/16 DETACHMENT AT RIGHT FOOT, PARTIAL 5TH RAY, OPEN APPROACH [id number] 08/23/16 Nutritional Asmnt/Malnutr-PDOC - Dietary Evaluation Malnutrition Findings (Please click <Entered> for more info): Nutritional Asmnt/Malnutrition Start: 08/25/16 15: 01 Text: Status: Active Freq: Document 08/25/16 15:01 GSUN (Rec: 08/25/16 15:18 GSUN [id number]) Nutritional Asmnt/Malnutrition Patient General Information Nutritional Screening Consult Diagnosis Sepsis secondary to foot ulcer Pertinent Medical Hx/Surgical Hx DM, HTN, ESRD on HD Subjective Information 60 year old male from home with caregiver. RD consult for chronic wounds. Pt was alert with family at bedside during visit. Avg PO intake 100% of meals. Pt stated good appetite , would like more food. Pt expressed preference for fruits, RD explained consistant carb. RD vriefly discussed CCHO and renal diet. Pt does not wish to go in further detail at this time, stating he has a caregiver and speaks to a dietitian at HD center. Pt report UBW dry weight 88kg/193.6lb, denied recent weight changes. Current Diet Order/ Nutrition Support Renal, [id number] Pertinent Medications Epogen, Novolog, Vancomycin Pertinent Labs 08/23: A1c 7.8H 08/25: creatinine 4.6H, glucose 163H Nutritional Hx/Data Height 1.75 m Height (Calculated Centimeters) 175.3 Current Weight (lbs) 81.647 kg Weight (Calculated Kilograms) 81.6 Weight (Calculated Grams) 07721.6 Usual body Weight (lbs) 194 [place] Body Weight 160 Recent Weight Change No Weight Status Overweight GI Symptoms Skin Integrity/Comment: Filippo 16. Woudn care 08/24: chronic wound on right foot. Current %PO Good (75-100%) Estimated Nutritional Goals Calories/Kcals/Kg IBW 160lb/72.7kg Kcals Calculated 2181-2545kcal (30-35kcal/kg) Protein g/kg: IBW Protein Calculated 102-124g (1.4-1.7g/kg) Fluid: ml Per MD (ERDS on HD) Nutritional Problem 1. Problem Problem Increased kcal and prot needs related to Etiology hypermetabolic state Signs/Symptoms: H&P: sepsis secondary to foot ulcer, ESRD on HD Intervention/Recommendation Comments 1. Recommend [id number] due to pt is in hypermetbaolic state on HD and expressed hunger. Expected Outcomes/Goals Expected Outcomes/Goals 1. PO intake continue to meet at least 75% of estimated nutritional needs. 2. Provided brief edu on current diet, CCHO and renal. Pt does not wish to discuss further in detail as pt has a caregiver and speaks to a dietitan at HD center. RD made sure pt knows RD's availability if he should have any questions.
--- NOTE | 2016-09-01 15:27 | Pathology Report ---
[id number] Collection Date: 08/31/2016 Surgeon: Dr. Damaris Harrington Specimen Description: Right foot transmetatarsal amputation Gross Description: Received in formalin is a 9.5 x 9.0 x 4.5 cm partial right foot amputation with resection occurring at the transmetatarsal location. The first and second toes have been previously amputated and show a deep, nonhealing, gangrenous wound with extensive brownish-jimenez discoloration extending into the underlying bone. The remaining three toes also show superficial ulceration and brownish-jimenez discoloration. Sectioning of the underlying soft tissue and bone shows softening and necrosis. Director Client sections are submitted in three cassettes labeled A1 to A3. Cassette A1 and A2 show soft tissue necrosis. Cassette A3 shows the bony tissue, following decalcification. Microscopic Description: The histologic sections show cutaneous ulceration with acute suppurative inflammation consisting of large collections of neutrophils with a very necrotic background. A small portion of bone is also identified that also shows inflammation and necrosis, consistent with osteomyelitis. The small arteries show occlusive calcification, consistent with peripheral vascular disease. Diagnosis: 1. Deep gangrenous ulcer with osteomyelitis, transmetatarsal amputation of right foot. 2. The small arterial vessels show calcification and occlusion (peripheral vascular disease). [facility]# [id number] [facility]ENTER[facility]
--- NOTE | 2016-09-01 18:34 | General Progress Note ---
Subjective - Review of Systems Service Date: 09/01/16 Subjective: alert, occ pain right foot Objective - Results Result Diagrams: 09/01/16 06:10 09/01/16 06:10 Recent Labs: Laboratory Last Values WBC 10.2 Th/cmm (4.8-10.8) 09/01/16 06:10 RBC 2.95 Mil/cmm (4.30-5.70) L 09/01/16 06:10 Hgb 8.8 gm/dL (13.2-17.3) L 09/01/16 06:10 Hct 26.2 % (39.0-49.0) L 09/01/16 06:10 MCV 88.7 fl (80-99) 09/01/16 06:10 MCH 29.8 pg (26.0-30.0) 09/01/16 06:10 MCHC Differential 33.6 pg (28.0-36.0) 09/01/16 06:10 RDW 13.6 % (11.5-20.0) 09/01/16 06:10 Plt Count 264 Th/cmm (150-400) 09/01/16 06:10 MPV 7.3 fl 09/01/16 06:10 Neutrophils % 77.0 % (40.0-80.0) 09/01/16 06:10 Band Neutrophils % 1 % (0-10) 08/26/16 06:15 Lymphocytes % 11.0 % (20.0-50.0) L 09/01/16 06:10 Monocytes % 8.0 % (2.0-10.0) 09/01/16 06:10 Eosinophils % 2.7 % (0.0-5.0) 09/01/16 06:10 Basophils % 1.3 % (0.0-2.0) 09/01/16 06:10 Neutrophils (Manual) 86 % (40-80) H 08/26/16 06:15 Lymphocytes 6 % (20-50) L 08/26/16 06:15 Monocytes 5 % (2-10) 08/26/16 06:15 Eosinophils 2 % (0-5) 08/26/16 06:15 Basophils 1 % (0-3) 08/25/16 06:40 Platelet Estimate ADEQUATE (NORMAL) 08/26/16 06:15 Platelet Morphology NORMAL (NORMAL) 08/26/16 06:15 Polychromasia 1+ 08/25/16 06:40 Anisocytosis 1+ 08/26/16 06:15 RBC Morph Micro Appear ABNORMAL (NORMAL) 08/26/16 06:15 PT 11.3 SECONDS (9.5-11.5) 08/31/16 06:30 INR 1.09 (0.5-1.4) 08/31/16 06:30 PTT (Actin FS) 26.1 SECONDS (26.0-38.0) 08/31/16 06:30 Sodium 138 mEq/L (136-145) 09/01/16 06:10 Potassium 4.1 mEq/L (3.5-5.1) 09/01/16 06:10 Chloride 98 mEq/L (98-107) 09/01/16 06:10 Carbon Dioxide 31.3 mEq/L (21.0-31.0) H 09/01/16 06:10 Anion Gap 12.8 (7.0-16.0) 09/01/16 06:10 BUN 16 mg/dL (7-25) 09/01/16 06:10 Creatinine 4.5 mg/dL (0.7-1.3) H* 09/01/16 06:10 Est GFR ( Amer) 17.2 ml/min (>90) 09/01/16 06:10 Est GFR (Non-Af Amer) 14.2 ml/min 09/01/16 06:10 BUN/Creatinine Ratio 3.6 09/01/16 06:10 Glucose 189 mg/dL (70-105) H 09/01/16 06:10 POC Glucose 183 MG/DL (70 - 105) H 09/01/16 16:32 Hemoglobin A1c % 7.8 % (4.0-6.0) H 08/23/16 20:29 Uric Acid 8.5 mg/dL (4.4-7.6) H 08/24/16 06:12 Calcium 9.0 mg/dL (8.6-10.3) 09/01/16 06:10 Phosphorus 5.4 mg/dL (2.5-5.0) H 08/24/16 06:12 Magnesium 2.0 mg/dL (1.9-2.7) 08/24/16 06:12 Total Bilirubin 0.4 mg/dL (0.3-1.0) 09/01/16 06:10 AST 15 U/L (13-39) 09/01/16 06:10 ALT 10 U/L (7-52) 09/01/16 06:10 Alkaline Phosphatase 204 U/L (34-104) H 09/01/16 06:10 Total Protein 6.5 gm/dL (6.0-8.3) 09/01/16 06:10 Albumin 3.1 gm/dL (4.2-5.5) L 09/01/16 06:10 Globulin 3.4 gm/dL 09/01/16 06:10 Albumin/Globulin Ratio 0.9 (1.0-1.8) L 09/01/16 06:10 Triglycerides 90 mg/dL (<150) 08/24/16 06:12 Cholesterol 73 mg/dL (<200) 08/24/16 06:12 LDL Cholesterol Direct 25 mg/dL (75-193) L 08/24/16 06:12 HDL Cholesterol 28 mg/dL (23-92) 08/24/16 06:12 Amylase 14 U/L (29-103) L 08/25/16 06:40 Lipase 20 U/L (11-82) 08/24/16 06:12 Vitamin B12 1646 pg/mL (211-946) H 08/24/16 06:12 Vitamin D 25-Hydroxy 5.9 ng/mL (30.0-100.0) L 08/24/16 06:12 Free T4 0.91 ng/dL (0.82-1.77) 08/24/16 06:12 TSH 0.93 uIU/ml (0.34-5.60) 08/24/16 06:12 Urine Source CLEAN C 08/28/16 15:25 Urine Color YELLOW 08/28/16 15:25 Urine Clarity CLEAR (CLEAR) 08/28/16 15:25 Urine pH 8.5 08/28/16 15:25 Ur Specific [place] 1.020 (1.005-1.030) 08/28/16 15:25 Urine Protein >300 mg/dL (NEGATIVE) H 08/28/16 15:25 Urine Glucose (UA) 250 mg/dL (NEGATIVE) H 08/28/16 15:25 Urine Ketones TRACE mg/dL (NEGATIVE) 08/28/16 15:25 Urine Blood TRACE (NEGATIVE) 08/28/16 15:25 Urine Nitrate NEGATIVE (NEGATIVE) 08/28/16 15:25 Urine Bilirubin NEGATIVE (NEGATIVE) 08/28/16 15:25 Urine Urobilinogen 0.2 E.U./dL (0.2 - 1.0) 08/28/16 15:25 Ur Leukocyte Esterase NEGATIVE (NEGATIVE) 08/28/16 15:25 Urine RBC 0-2 /hpf (0-5) H 08/28/16 15:25 Urine WBC 2-5 /hpf (0-5) H 08/28/16 15:25 Ur Epithelial Cells RARE /lpf (FEW) 08/28/16 15:25 Urine Bacteria OCCASIONAL /hpf (NONE SEEN) 08/28/16 15:25 Random Vancomycin 24.9 ug/mL (5.0-40.0) 09/01/16 06:10 Hepatitis A IgM Ab Negative (Negative) 08/26/16 06:15 Hep Bs Antigen Negative (Negative) 08/26/16 06:15 Hep B Core IgM Ab Negative (Negative) 08/26/16 06:15 Hepatitis C Antibody <0.1 s/co ratio (0.0-0.9) 08/26/16 06:15 - Physical Exam Vitals and I&O: Vital Signs Temp 98.4 F 09/01/16 16:00 Pulse 81 09/01/16 16:00 Resp 20 09/01/16 16:00 BP 162/76 09/01/16 16:00 Pulse Ox 96 09/01/16 16:00 Intake & Output 08/31/16 09/01/16 09/01/16 18:59 06:59 18:59 Intake Total 0 800 Output Total 31 Balance 0 769 Weight (lbs) 80.3 kg Intake: Oral 0 800 Output: Urine 3 Other 28 Active Medications: Current Medications Acetaminophen (Tylenol) 650 mg PO Q4H PRN PRN Reason: fever Stop: 10/22/16 19:59 Last Admin: 08/28/16 10:22 Dose: 650 mg Calcium Acetate (Phoslo) 667 mg PO TIDWM DEB Stop: 10/23/16 16:59 Last Admin: 09/01/16 16:30 Dose: 667 mg Hydromorphone HCl (Dilaudid) 2 mg IVP Q4HR PRN PRN Reason: Severe Pain Stop: 10/30/16 13:07 Last Admin: 09/01/16 14:10 Dose: 2 mg Insulin Aspart (Novolog Insulin Sliding Scale) 0 units SUBQ ACHS DEB PRN Reason: Protocol Stop: 10/23/16 07:29 Last Admin: 09/01/16 18:12 Dose: Not Given Insulin Human Isoph/Insulin Regular (Novolin 70/30) 8 units SUBQ QDAC DEB PRN Reason: Protocol Stop: 10/31/16 07:29 Last Admin: 09/01/16 06:58 Dose: 8 units Miscellaneous (Clinical Monitoring) 1 [facility] DAILY PRN PRN Reason: RENAL Stop: 10/23/16 08:19 Miscellaneous (Vancomycin Iv Per Pharmacy) 1 [facility] PRN PRN PRN Reason: PROTOCOL Stop: 10/23/16 14:11 Ondansetron HCl (Zofran) 4 mg IV Q4H PRN PRN Reason: Nausea / Vomiting Stop: 10/24/16 18:51 Last Admin: 08/29/16 13:22 Dose: 4 mg Tramadol HCl (Ultram) 50 mg PO Q4HR PRN PRN Reason: Pain (Moderate) Stop: 10/27/16 09:02 Last Admin: 09/01/16 18:15 Dose: 50 mg General: Alert, No acute distress, Other (pain right foot) HEENT: Atraumatic, Mucous membr. moist/pink Neck: Supple, +2 carotid pulse wo bruit Cardiovascular: Regular rate, Normal S1, Normal S2 Lungs: Clear to auscultation Abdomen: Bowel sounds, Soft Extremities: Other ((+) dressing right foot), no Edema Neurological: Sensation intact Skin: no Rash Psych/Mental Status: Mood NL - Procedures Procedures: Procedures Procedure Code Date AMPUTATION THRU METATARSAL 57012 08/23/16 DETACHMENT AT RIGHT FOOT, PARTIAL 1ST RAY, OPEN APPROACH [id number] 08/23/16 DETACHMENT AT RIGHT FOOT, PARTIAL 2ND RAY, OPEN APPROACH [id number] 08/23/16 DETACHMENT AT RIGHT FOOT, PARTIAL 3RD RAY, OPEN APPROACH [id number] 08/23/16 DETACHMENT AT RIGHT FOOT, PARTIAL 4TH RAY, OPEN APPROACH [id number] 08/23/16 DETACHMENT AT RIGHT FOOT, PARTIAL 5TH RAY, OPEN APPROACH [id number] 08/23/16 Assessment/Plan - Assessment Assessment: ESRD on HD Met Enceph 2nd hypolglycemia Sepsis 2nd to Infected, Necrotic right foot ulcer DM2 Ess Htn Anemia of CKD B/L PAD S/P 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 S/P right TMA - Plan Plan: Lab - Result Diagrams 08/25/16 06:40 08/25/16 06:40 Current Medications Acetaminophen (Tylenol) 650 mg PO Q4H PRN PRN Reason: fever Stop: 10/22/16 19:59 Last Admin: 08/25/16 00:07 Dose: 650 mg Calcium Acetate (Phoslo) 667 mg PO TIDWM DEB Stop: 10/23/16 16:59 Last Admin: 08/25/16 16:15 Dose: 667 mg Epoetin Tejas (Epogen) 10,000 units SUBQ MoWeFr DEB Stop: 10/23/16 14:14 Last Admin: 08/24/16 16:24 Dose: 10,000 units Hydromorphone HCl (Dilaudid) 1 mg IVP Q6HR PRN PRN Reason: Pain (Moderate) Stop: 10/22/16 19:59 Last Admin: 08/25/16 11:50 Dose: 1 mg Ceftriaxone Sodium 1 gm/ (Sodium Chloride) 50 mls @ 100 mls/hr IV Q24HR DEB Stop: 10/22/16 20:59 Last Admin: 08/24/16 20:48 Dose: 100 mls/hr Insulin Aspart (Novolog Insulin Sliding Scale) 0 units SUBQ ACHS DEB PRN Reason: Protocol Stop: 10/23/16 07:29 Last Admin: 08/25/16 11:51 Dose: 1,000 units Miscellaneous (Clinical Monitoring) 1 [facility] DAILY PRN PRN Reason: RENAL Stop: 10/23/16 08:19 Miscellaneous (Vancomycin Iv Per Pharmacy) 1 [facility] PRN PRN PRN Reason: PROTOCOL Stop: 10/23/16 14:11 continue Rocephin Right HODAN 1, Left HODAN 0.8 not indicative of severe PAD Pt. had right TMA w/ CHOCO drain Nutritional Asmnt/Malnutr-PDOC - Dietary Evaluation Malnutrition Findings (Please click <Entered> for more info): Nutritional Asmnt/Malnutrition Start: 08/25/16 15: 01 Text: Status: Active Freq: Document 08/25/16 15:01 RADHA (Rec: 08/25/16 15:18 [id number] [email or web address]) Nutritional Asmnt/Malnutrition Patient General Information Nutritional Screening Consult Diagnosis Sepsis secondary to foot ulcer Pertinent Medical Hx/Surgical Hx DM, HTN, ESRD on HD Subjective Information 60 year old male from home with caregiver. RD consult for chronic wounds. Pt was alert with family at bedside during visit. Avg PO intake 100% of meals. Pt stated good appetite , would like more food. Pt expressed preference for fruits, RD explained consistant carb. RD vriefly discussed CCHO and renal diet. Pt does not wish to go in further detail at this time, stating he has a caregiver and speaks to a dietitian at HD center. Pt report UBW dry weight 88kg/193.6lb, denied recent weight changes. Current Diet Order/ Nutrition Support Renal, [id number] Pertinent Medications Epogen, Novolog, Vancomycin Pertinent Labs 08/23: A1c 7.8H 08/25: creatinine 4.6H, glucose 163H Nutritional Hx/Data Height 1.75 m Height (Calculated Centimeters) 175.3 Current Weight (lbs) 81.647 kg Weight (Calculated Kilograms) 81.6 Weight (Calculated Grams) 16043.6 Usual body Weight (lbs) 194 [place] Body Weight 160 Recent Weight Change No Weight Status Overweight GI Symptoms Skin Integrity/Comment: Filippo 16. Woudn care 08/24: chronic wound on right foot. Current %PO Good (75-100%) Estimated Nutritional Goals Calories/Kcals/Kg IBW 160lb/72.7kg Kcals Calculated 2181-2545kcal (30-35kcal/kg) Protein g/kg: IBW Protein Calculated 102-124g (1.4-1.7g/kg) Fluid: ml Per MD (ERDS on HD) Nutritional Problem 1. Problem Problem Increased kcal and prot needs related to Etiology hypermetabolic state Signs/Symptoms: H&P: sepsis secondary to foot ulcer, ESRD on HD Intervention/Recommendation Comments 1. Recommend [id number] due to pt is in hypermetbaolic state on HD and expressed hunger. Expected Outcomes/Goals Expected Outcomes/Goals 1. PO intake continue to meet at least 75% of estimated nutritional needs. 2. Provided brief edu on current diet, CCHO and renal. Pt does not wish to discuss further in detail as pt has a caregiver and speaks to a dietitan at HD center. RD made sure pt knows RD's availability if he should have any questions.
--- NOTE | 2016-09-03 01:05 | Discharge Summary ---
DATE OF DISCHARGE: 09/01/2016 CHIEF COMPLAINT: Acute loss of consciousness. HISTORY OF PRESENT ILLNESS: This is the case of a 61-year-old male who was found unconsciousness, reason why he was transferred to Emergency Room [facility]. During the time the patient spent in [place], the patient was confused and had leukocytosis, reason why the patient was transferred to [facility] to continue treatment. HOSPITAL COURSE AND TREATMENT: Then, this patient was admitted in the medical surgical floor. He was started on IV normal saline, vancomycin and Zosyn, diabetic diet. The patient received dialysis every 3 times a week. He was continued with home medications, consult with surgery was done and recommendation was followed. After a few days in the hospital and by recommendation of surgeon, amputation of the first and second toe were done, but during the surgical procedure, it was found the patient had pus in the metatarsus, reason why second surgery was recommended, where all the metatarsus was amputated. Second surgery was done and patient tolerated the surgery well. With this and after surgery and with antibiotic, the patient improved, reason why after 10 days in the hospital, it was considered the patient received maximum benefits of hospitalization and he could be sent [facility]. At the moment of discharge, the patient was awake, alert, in no acute distress. INSPECTOR PENETRANT IN THIS CASE: Dr. Harrington, surgeon; Dr. Odom, Nephrology; Dr. Zendejas, Endocrinology. DISPOSITION: The patient is sent to [facility]. DIAGNOSES: 1. Sepsis secondary to foot ulcer. 2. Diabetes mellitus. 3. Hypertension. 4. End-stage renal disease. JOB# [id number]
== END 2016-09-01 18:58 | DRG 853 ==
LOC: MSI 18:55
PROVIDERS: ADMIT General Practice; ATTEND General Practice
PROC: 5A1D60Z (ICD-10-PCS; 2016-08-26)
PROC: 0Y6M0Z9 Detachment at Right Foot, Partial 1st Ray, Open Approach (ICD-10-PCS; principal; 2016-08-27)
PROC: 0Y6M0ZB Detachment at Right Foot, Partial 2nd Ray, Open Approach (ICD-10-PCS; 2016-08-27)
PROC: 0Y6M0Z9 Detachment at Right Foot, Partial 1st Ray, Open Approach (ICD-10-PCS; 2016-08-31)
PROC: 0Y6M0ZB Detachment at Right Foot, Partial 2nd Ray, Open Approach (ICD-10-PCS; 2016-08-31)
PROC: 0Y6M0ZC Detachment at Right Foot, Partial 3rd Ray, Open Approach (ICD-10-PCS; 2016-08-31)
PROC: 0Y6M0ZD Detachment at Right Foot, Partial 4th Ray, Open Approach (ICD-10-PCS; 2016-08-31)
PROC: 0Y6M0ZF Detachment at Right Foot, Partial 5th Ray, Open Approach (ICD-10-PCS; 2016-08-31)
DX: A41.9 Sepsis, unspecified organism (principal); N18.6 End stage renal disease; E43 Unspecified severe protein-calorie malnutrition; G93.41 Metabolic encephalopathy; E11.52 Type 2 diabetes mellitus with diabetic peripheral angiopathy with gangrene; I12.0 Hypertensive chronic kidney disease with stage 5 chronic kidney disease or end stage renal disease; E11.22 Type 2 diabetes mellitus with diabetic chronic kidney disease; E11.621 Type 2 diabetes mellitus with foot ulcer; D63.1 Anemia in chronic kidney disease; E11.649 Type 2 diabetes mellitus with hypoglycemia without coma; Z79.4 Long term (current) use of insulin; Z99.2 Dependence on renal dialysis
CPT/HCPCS: 36415-UA; 71010-TC; 78315-TC; 80053-TC; 80061-TC; 80074-90; 80202-TC; 81001-TC; 82150-TC; 82306-90; 82607-90; 82948-90; 83036-90; 83690-TC; 83735-TC; 84100-TC; 84439-90; 84443-TC; 84550-TC; 85007-TC; 85025-TC; 85027-TC; 85610-TC; 85730-TC; 87070-90; 87075-90; 87205-90; 88304-TC; 90937; 93005; 93925-TC; 93970-TC-50; 93971-TC-RT; A9503; J0690; J0696; J0885; J1170; J1815; J2001; J2250; J2405; J2704; J3370; J7030; J7040; J7042; V2790; Z7610